=== PATIENT | male | born 1955 | race Caucasian/White ===

== ENCOUNTER → 2018-01-06 11:14 | Outpatient (CLI) | payer OTHER, SELFPAY ==
[2018-01-06 11:49] LABS: Absolute Lymphocyte Count 1.33 X10^3/ul (0.83-4.51); Absolute Neutrophil Count 4.9 X10^3/uL (2.0-7.7); Basophil# 0.02 X10^3/uL; Basophil% 0.3 % (0-1); Eosinophil# 0.04 X10^3/uL; Eosinophils% 0.6 % (0-5); Lymphocyte # 1.33 X10^3/ul (4.0); Lymphocyte % 19.9 % (19-41); Mean Corp Hgb Conc 34.7 g/gl (32-36); Mean Corpuscular Volume 86.4 fL (80-94); Mean Platelet Vol. 9.5 fl (6.2-12.0); Monocyte# 0.39 X10^3/uL; Monocyte% 5.8 % (0-10); Neutrophil # 4.87 X10^3/uL (2.7-7.7); Neutrophil % 73.1 % (47-70); Platelet Count 254 K/mm3 (150-450); RBC Distribution Width CV 13.3 % (11.6-14.6); RBC Distribution Width SD 42.1 fl (35.1-43.9); Red Blood Count 5.67 M/mm3 (4.6-6.2); White Blood Count 6.7 K/mm3 (4.4-11.0)
[2018-01-06 11:52] LABS: POSITIVE COUNT NO; POSITIVE DIFFERENTIAL NO; POSITIVE MORPHOLOGY NO
[2018-01-06 12:02] LABS: Erythrocyte Sedimentation Rate 13 mm/hr (0-20)
[2018-01-06 12:04] LABS: D-Dimer Quantitative (DVT/PE) < 0.27 FEU/ug/m (0.27-0.49)
[2018-01-06 12:59] LABS: Anion Gap 7 (5-15); BUN 21 mg/dL (7-18); BUN/Creat Ratio 23.9 RATIO (10-20); CRP, High Sensitivity Cardiac 4.31 mg/L; Chloride 104 mmol/L (98-107); Creatinine, Serum 0.88 mg/dL (0.70-1.30); EST Glomerular Filtration Rate 94 mL/min (>60); Est Glom Filt Rate - Afr Amer 114 mL/min (>60); Glucose 95 mg/dL (74-106); Potassium 4.1 mmol/L (3.5-5.1); Sodium Level 136 mmol/L (136-145); Uric Acid 5.3 mg/dL (3.5-7.2)
== END ==
PROVIDERS: Family Provider Family Medicine Geriatric Medicine; PCP Family Medicine Geriatric Medicine; Visit Provider Family Medicine Geriatric Medicine
DX: M10.9 Gout, unspecified (principal); R07.9 Chest pain, unspecified; R60.9 Edema, unspecified
CPT/HCPCS: 36415; 80048; 84550; 85025; 85379; 85652; 86141

== ENCOUNTER → 2018-03-29 14:15 | Outpatient (CLI) | payer OTHER, SELFPAY ==
--- NOTE | 2018-03-29 15:10 | NEURO ---
NCS and/or EMG Patient Report Ordering Doctor: Phi Garcia Chi DATE OF SERVICE: 03/29/18 Elvin Eubanks is a 62-year-old male who presents with chief complaint of bilateral shoulder pain which she reports radiates down into his hands. Electrodiagnostic findings: Median motor nerve demonstrates normal distal latency amplitude and conduction velocity bilaterally. Normal ulnar motor response bilaterally. Normal ulnar and median F waves. Sensory responses are within normal limits. Needle EMG testing shows no evidence of denervation in any muscles tested. Electrodiagnostic impression: This is a normal electrodiagnostic study of the upper limbs. There is no electrodiagnostic evidence for peripheral neuropathy or cervical radiculopathy.
== END ==
PROVIDERS: Family Provider Family Medicine Geriatric Medicine; PCP Family Medicine Geriatric Medicine; Visit Provider Family Medicine Geriatric Medicine
DX: R20.2 Paresthesia of skin (principal)
CPT/HCPCS: 95886; 95912

== ENCOUNTER → 2018-10-31 16:07 | Outpatient (CLI) | payer OTHER, SELFPAY ==
[2018-10-31 17:23] LABS: Absolute Lymphocyte Count 1.37 X10^3/ul (0.83-4.51); Absolute Neutrophil Count 3.7 X10^3/uL (2.0-7.7); Basophil# 0.03 X10^3/uL; Basophil% 0.5 % (0-1); Eosinophil# 0.05 X10^3/uL; Eosinophils% 0.9 % (0-5); Hematocrit 48.1 % (40-54); Hemoglobin 15.9 g/dl (13.0-16.5); Lymphocyte # 1.37 X10^3/ul (4.0); Lymphocyte % 24.7 % (19-41); Mean Corp Hgb Conc 33.1 g/gl (32-36); Mean Corpuscular Hgb 29.8 pg (27.0-32.0); Mean Corpuscular Volume 90.2 fL (80-94); Mean Platelet Vol. 10.3 fl (6.2-12.0); Monocyte# 0.34 X10^3/uL; Monocyte% 6.1 % (0-10); Neutrophil # 3.74 X10^3/uL (2.7-7.7); Neutrophil % 67.6 % (47-70); Platelet Count 236 K/mm3 (150-450); RBC Distribution Width CV 13.7 % (11.6-14.6); RBC Distribution Width SD 44.8 fl (35.1-43.9); Red Blood Count 5.33 M/mm3 (4.6-6.2); White Blood Count 5.5 K/mm3 (4.4-11.0)
[2018-10-31 17:31] LABS: POSITIVE COUNT NO; POSITIVE DIFFERENTIAL NO; POSITIVE MORPHOLOGY NO
[2018-10-31 17:59] LABS: ALB/GLOB Ratio 1.3 RATIO (0.9-2.4); AST(SGOT) 18 U/L (15-37); Alanine Aminotransfer ALT/SGPT 31 U/L (16-61); Alkaline Phosphatase 47 U/L (45-117); Anion Gap 10 (5-15); BUN 16 mg/dL (7-18); BUN/Creat Ratio 17.5 RATIO (10-20); Calcium,Total 8.7 mg/dL (8.5-10.1); Chloride 105 mmol/L (98-107); Creatinine, Serum 0.91 mg/dL (0.70-1.30); EST Glomerular Filtration Rate 90 mL/min (>60); Est Glom Filt Rate - Afr Amer 109 mL/min (>60); Globulin 3.1 g/dL (2.2-4.2); Glucose 84 mg/dL (74-106); PSA,Total- Diagnostic 4.57 ng/mL (0.0-4.0); Potassium 3.9 mmol/L (3.5-5.1); Protein, Total 7.1 g/dL (6.4-8.2); Sodium Level 140 mmol/L (136-145); Thyroid Stim Hormone (TSH) 0.41 uIU/mL (0.358-3.74)
--- OUTSIDE RECORDS SUMMARY | 2019-01-02 22:10 | XMS RPT_ITS ---
:1955 Author Organization [facility] Care Team Providers Name Role Phone Jose, Phi Chi Attending Unavailable Jose, Phi Chi Primary Care Unavailable Jose, Phi Chi Attending Unavailable Jose, Phi Chi Primary Care Unavailable Jose, Phi Chi Attending Unavailable Jose, Phi Chi Referring Unavailable Jose, Phi Chi Primary Care Unavailable Jose, Phi Chi Attending Unavailable Jose, Phi Chi Primary Care Unavailable PROBLEMS PROBLEMS DATE TYPE CONDITION / CODE ATTENDING STATUS SOURCE 03/29/2018 Unknown R20.9 - Jose, Phi Chi Active [facility] Unspecified Community disturbances of Hospital skin sensation / Repository R20.9(ICD-10) 01/06/2018 Unknown M10.9 - Gout, Jose, Phi Chi Active [place] unspecified / Community M10.9(ICD-10) Hospital Repository 01/06/2018 Unknown R07.9 - Chest Jose, Phi Chi Active [facility] pain, unspecified Community / R07.9(ICD-10) Hospital Repository 01/06/2018 Unknown R60.9 - Edema, Jose, Phi Chi Active [place] unspecified / Community R60.9(ICD-10) Hospital Repository PROCEDURES PROCEDURES No Procedure Records FoundRESULTS RESULTS CBC W/DIFF, AUTOMATED Collected: 10/31/2018 Status: F Source: [place] 4:08 PM [facility] [place] Order Comment: DR GARCIA ORDERED CBCD CMP TSH DR WHARTON ORDERED PSAD TYPE CODE TESTS RESULT OUT OF RANGE REFERENCE UNITS LAB L100.1000 4.4-11.0 K/mm3 Normal WBC 5.5 LAB L100.1200 4.6-6.2 M/mm3 Normal RBC 5.33 LAB L100.1300 13.0-16.5 g/dl Normal HGB 15.9 LAB L100.1400 40-54 % Normal HCT 48.1 LAB L100.1500 80-94 fL Normal MCV 90.2 LAB L100.1600 27.0-32.0 pg Normal MCH 29.8 LAB L100.1700 32-36 g/gl Normal MCHC 33.1 LAB L100.1810 11.6-14.6 % Normal RDW CV 13.7 LAB L100.1820 35.1-43.9 fl High RDW SD 44.8 LAB L100.1900 150-450 K/mm3 Normal PLT 236 LAB L100.2000 6.2-12.0 fl Normal MPV 10.3 LAB L100.2100 47-70 % Normal NEUT% 67.6 LAB L100.2200 19-41 % Normal LY% 24.7 LAB L100.2300 0-10 % Normal MONO% 6.1 LAB L100.2400 0-5 % Normal EO% 0.9 LAB L100.2500 0-1 % Normal BASO% 0.5 LAB L100.2550 0.0-0.9 % Normal IM GRAN % 0.200 Result Comment: IG% - Immature Granulocytes (promyelocytes, myelocytes and metamyelocytes) > 1% indicates that a LEFT SHIFT is Present. LAB L100.2620 2.0-7.7 X10 3/uL Normal Absolute Neut 3.7 LAB L100.2720 0.83-4.51 X10 3/ul Normal Absolute Lymph 1.37 Performed By: #### L100.0100 #### [facility] [address] [place], [address] COMPREHENSIVE METABOLIC Collected: 10/31/2018 Status: F Source: [facility] 4:08 PM [facility] [place] Order Comment: DR GARCIA ORDERED CBCD CMP TSH DR WHARTON ORDERED PSAD TYPE CODE TESTS RESULT OUT OF RANGE REFERENCE UNITS LAB L501.0100 74-106 mg/dL Normal GLU 84 Result Comment: Please note revised GLUCOSE reference range effective 2017. LAB L501.1000 7-18 mg/dL Normal BUN 16 LAB L501.1100 0.70-1.30 mg/dL Normal CREAT,SERUM 0.91 Result Comment: The validity of the calculated GFR AND GFRAA in patients over 70 years has not been determined. Clinical correlation is essential. LAB L501.1110 >60 mL/min Normal EST GFR 90 Result Comment: Non- GFR Calc LAB L501.1115 >60 mL/min Normal EST GFR - AA 109 Result Comment: GFR Calc LAB L501.1300 10-20 RATIO Normal BUN/CRE 17.5 LAB L501.1500 6.4-8.2 g/dL T Normal PROT 7.1 LAB L501.1800 3.2-5.0 g/dL Normal ALB 4.0 LAB L501.1950 2.2-4.2 g/dL Normal GLOB 3.1 LAB L501.2000 0.9-2.4 RATIO Normal A/G 1.3 LAB L501.2200 8.5-10.1 mg/dL CA Normal 8.7 LAB L501.4100 15-37 U/L Normal AST 18 LAB L501.4305 45-117 U/L Normal ALK P 47 LAB L501.4405 16-61 U/L Normal ALT 31 LAB L501.4600 0.20-1.00 mg/dL T Normal BILI 0.60 LAB L501.5300 136-145 mmol/L NA Normal 140 LAB L501.5600 3.5-5.1 mmol/L K Normal 3.9 LAB L501.5900 98-107 mmol/L CL Normal 105 LAB L501.6100 21.0-32.0 mmol/L Normal CO2 25.0 LAB L501.6200 5-15 Normal GAP 10 Performed By: #### L500.4050, L501.9520, L501.9940 #### [facility] [address] [place], [place], [id number] THYROID STIM HORMONE Collected: 10/31/2018 Status: F Source: [place] ([facility]) 4:08 PM [facility] [place] Order Comment: DR GARCIA ORDERED CBCD CMP TSH DR WHARTON ORDERED PSAD TYPE CODE TESTS RESULT OUT OF RANGE REFERENCE UNITS LAB L501.9520 0.358-3.74 uIU/mL Normal TSH 0.41 Performed By: #### L500.4050, L501.9520, L501.9940 #### [facility] [address] [place], [address] PSA,TOTAL- DIAGNOSTIC Collected: 10/31/2018 Status: F Source: [place] 4:08 PM [facility] [place] Order Comment: DR GARCIA ORDERED CBCD CMP TSH DR WHARTON ORDERED PSAD TYPE CODE TESTS RESULT OUT OF REFERENCE UNITS RANGE LAB L501.9940 0.0-4.0 ng/mL PSA, High DIAGNOSTIC 4.57 Result Comment: This test was performed using the TPSA assay method for the Cognia chemistry system. Values obtained with different assay methods cannot be used interchangably. When changing PSA assays in the course of monitoring a patient, additional sequential testing should be carried out to confirm baseline values. Performed By: #### L500.4050, L501.9520, L501.9940 #### [facility] [address] [place], [address] NCS AND/OR EMG Observed: 03/29/2018 Status: F Source: [place] PATIENT 3:14 PM [facility] [place] [facility] [address] [place] [address] MR#: [id number] Acct: [id number] Name: ESPERANZA EUBANKS Rep #: [id number] : 1955 62 From: Silviano Acosta MD Referring Dr: Jose CARLSON,Phi Thacker Status: REG CLI Ordering Dr: Date: Location: [facility] [place] Sex: M C NCS and/or EMG Patient Report Ordering Doctor: Phi Garcia Chi DATE OF SERVICE: 03/29/18 Esperanza Eubanks is a 62-year-old male who presents with chief complaint of bilateral shoulder pain which she reports radiates down into his hands. Electrodiagnostic findings: Median motor nerve demonstrates normal distal latency amplitude and conduction velocity bilaterally. Normal ulnar motor response bilaterally. Normal ulnar and median F waves. Sensory responses are within normal limits. Needle EMG testing shows no evidence of denervation in any muscles tested. Electrodiagnostic impression: This is a normal electrodiagnostic study of the upper limbs. There is no electrodiagnostic evidence for peripheral neuropathy or cervical radiculopathy. 03/29/181513 <Electronically signed by Silviano Acosta MD> Date Silviano Acosta MD CC: Silviano Acosta; Phi Garcia MD Date Dictated: 03/29/181509 Date Transcribed: 03/29/181509 Culinary Chef: RENNY Signed CBC W/DIFF, AUTOMATED Collected: 01/06/2018 Status: F Source: [place] 11:16 AM [facility] [place] TYPE CODE TESTS RESULT OUT OF RANGE REFERENCE UNITS LAB L100.1000 4.4-11.0 K/mm3 Normal WBC 6.7 LAB L100.1200 4.6-6.2 M/mm3 Normal RBC 5.67 LAB L100.1300 13.0-16.5 g/dl High HGB 17.0 LAB L100.1400 40-54 % Normal HCT 49.0 LAB L100.1500 80-94 fL Normal MCV 86.4 LAB L100.1600 27.0-32.0 pg Normal MCH 30.0 LAB L100.1700 32-36 g/gl Normal MCHC 34.7 LAB L100.1810 11.6-14.6 % Normal RDW CV 13.3 LAB L100.1820 35.1-43.9 fl Normal RDW SD 42.1 LAB L100.1900 150-450 K/mm3 Normal PLT 254 LAB L100.2000 6.2-12.0 fl Normal MPV 9.5 LAB L100.2100 47-70 % High NEUT% 73.1 LAB L100.2200 19-41 % Normal LY% 19.9 LAB L100.2300 0-10 % Normal MONO% 5.8 LAB L100.2400 0-5 % Normal EO% 0.6 LAB L100.2500 0-1 % Normal BASO% 0.3 LAB L100.2550 0.0-0.9 % Normal IM GRAN % 0.300 Result Comment: IG% - Immature Granulocytes (promyelocytes, myelocytes and metamyelocytes) > 1% indicates that a LEFT SHIFT is Present. LAB L100.2620 2.0-7.7 X10 3/uL Normal Absolute Neut 4.9 LAB L100.2720 0.83-4.51 X10 3/ul Normal Absolute Lymph 1.33 Performed By: #### L100.0100, L101.9900 #### [facility] [address] [facility] [address] ERYTHROCYTE SED RATE Collected: 01/06/2018 Status: F Source: [place] 11:16 AM [facility] [place] TYPE CODE TESTS RESULT OUT OF RANGE REFERENCE UNITS LAB L102.0000 0-20 mm/hr Normal SED RATE 13 Performed By: #### L100.0100, L101.9900 #### [facility] [address] [facility]. [facility] [id number] D-DIMER QUANTITATIVE Collected: 01/06/2018 Status: F Source: [place] (DVT/PE) 11:16 AM [facility] [place] [facility] TYPE CODE TESTS RESULT OUT OF RANGE REFERENCE UNITS LAB L300.8000 0.27-0.49 FEU/ug/m Low D-DIMER < 0.27 QUANT Result Comment: NORMAL D-Dimer level (<0.50) indicates no DVT or PE. NORMAL D-Dimer level (<0.50) indicates no DVT or PE. Performed By: #### L300.8000 #### [facility] [address] [facility]. [facility] [address] BASIC METABOLIC Collected: 01/06/2018 Status: F Source: [facility] PROFILE (BMP) 11:16 AM [facility] [place] TYPE CODE TESTS RESULT OUT OF RANGE REFERENCE UNITS LAB L501.0100 74-106 mg/dL Normal GLU 95 Result Comment: Please note revised GLUCOSE reference range effective 2017. LAB L501.1000 7-18 mg/dL High BUN 21 LAB L501.1100 0.70-1.30 mg/dL Normal CREAT,SERUM 0.88 Result Comment: The validity of the calculated GFR AND GFRAA in patients over 70 years has not been determined. Clinical correlation is essential. LAB L501.1110 >60 mL/min Normal EST GFR 94 Result Comment: Non- GFR Calc LAB L501.1115 >60 mL/min Normal EST GFR - AA 114 Result Comment: GFR Calc LAB L501.1300 10-20 RATIO High BUN/CRE 23.9 LAB L501.2200 8.5-10.1 mg/dL CA Normal 9.0 LAB L501.5300 136-145 mmol/L NA Normal 136 LAB L501.5600 3.5-5.1 mmol/L K Normal 4.1 LAB L501.5900 98-107 mmol/L CL Normal 104 LAB L501.6100 21.0-32.0 mmol/L Normal CO2 25.0 LAB L501.6200 5-15 Normal GAP 7 Performed By: #### L500.2500, L501.1400, L501.6750 #### [facility] [address] [facility]. [place], [place], [address] URIC ACID Collected: 01/06/2018 Status: F Source: [place] 11:16 AM [facility] [place] TYPE CODE TESTS RESULT OUT OF RANGE REFERENCE UNITS LAB L501.1400 3.5-7.2 mg/dL Normal URIC 5.3 Result Comment: The drugs N-Acetylcysteine and Metamizole may falsely depress this assay. Performed By: #### L500.2500, L501.1400, L501.6750 #### [facility] [address] [place], [place], [address] CRP, HIGH SENSITIVITY Collected: 01/06/2018 Status: F Source: [facility] 11:16 AM [facility] [place] TYPE CODE TESTS RESULT OUT OF RANGE REFERENCE UNITS LAB L501.6750 mg/L High CRP HIGH 4.31 SENS Result Comment: Low Relative Risk of CVD <1.0 mg/L Average Relative Risk of CVD 1.0 - 3.0 mg/L High Relative Risk of CVD >3.0 mg/L Performed By: #### L500.2500, L501.1400, L501.6750 #### [facility] [address] [place], [address] ALLERGIES ALLERGIES No Allergies Records FoundENCOUNTERS ENCOUNTERS ADMIT/DISCHARGE ACCOUNT ADMITTING ENCOUNTER LOCATION SOURCE NUMBER CLASS 10/31/2018 [id number] Ambulatory [facility] 0 [facility] ing:POLAB3 Repository 04/26/2018 [id number] Ambulatory [place] Inderjit 3 [facility] ing:LAB.FUTUR Repository E 03/29/2018 [id number] Ambulatory [place]der[facility]it [place] 8 [facility] ing:PSN Repository 01/06/2018 [id number] Ambulatory [place] Inderjit 2 [facility] ing:POLAB3 Repository PAYERS PAYERS ENCOUNTER GUARANTOR PAYER SUBSCRIBER SOURCE 10/31/2018 Esperanza E Eubanks Primary ESPERANZA E [place] [id number] [place] Insurance:AULTCAREPol YODERDOB: [place], [place] icy Number: [id number] [address]Ann: 330 [id number] Repository [phone] () Date:[place]883[place] [id number]: 10/31/2018 Secondary NOT GIVENUNK [place] Insurance:SELF PAY [facility] Number: Effective Repository Date:2018-10-31 04/26/2018 Esperanza E Eubanks Primary ESPERANZA E [place] [id number] [place] Insurance:AULTCAREPol YODERDOB: [place], [place] icy Number: [id number] [address]Mij: 330 [id number] Repository [phone] () Date:4679-19-46[address] [address]UJ: 04/26/2018 Secondary NOT GIVENUNK [place] Insurance:SELF PAY [facility] Number: Effective Repository Date:2018-04-26 03/29/2018 Esperanza E Eubanks Primary ESPERANZA E [place] [id number] [place] Insurance:AULTCAREPol YODERDOB: [place], [place] icy Number: [id number] [address]Ewu: 330 [id number] Repository [phone] () Date:0646-01-64OM [address] [place] [id number]: 03/29/2018 Secondary NOT GIVENUNK [place] Insurance:SELF PAY [facility] Number: Effective Repository Date:2018-01-06 01/06/2018 Esperanza Eubanks Primary ESPERANZA Mg [id number] [place] Insurance:AULTCAREScot EUBANKSDOB: [place], [place] ic Number: [id number] [address]Nju: [phone] [id number] Repository [phone] () Date:0311-28-60XD [address], [place] [address]YL: 01/06/2018 Secondary NOT GIVENUNK [place] Insurance:SELF PAY [facility] Number: Effective Repository Date:2018-01-06
== END ==
PROVIDERS: Family Provider Family Medicine Geriatric Medicine; PCP Family Medicine Geriatric Medicine; Visit Provider Family Medicine Geriatric Medicine
DX: I10 Essential (primary) hypertension (principal); Z12.5 Encounter for screening for malignant neoplasm of prostate; R97.20 Elevated prostate specific antigen [PSA]
CPT/HCPCS: 36415; 80053; 84153; 84443; 85025

== ENCOUNTER → 2019-02-09 | Outpatient (CLI) | payer OTHER, SELFPAY ==
[2019-02-09 10:07] VITALS: BMI 29.4
--- NOTE | 2019-02-09 10:13 | RAD_ITS ---
STUDY: X-RAY - RIGHT SHOULDER REASON FOR EXAM: Shoulder pain, fall yesterday. TECHNIQUE: 4 view(s) of the shoulder. COMPARISON: None. FINDINGS: Normal glenohumeral articulation. There is acromioclavicular arthrosis. Normal acromion. Normal humeral head and visualized proximal humerus. There is a calcification adjacent to the lesser tuberosity on the axillary and internal AP rotation views consistent with subscapularis calcific tendinitis. Normal visualized pulmonary apex. 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 Electronically Signed: Reinaldo Calabrese MD at 11:23 EDT Tel , Service support ,
== END | disposition home or self-care (01) ==
LOC: HPRAD 10:12
PROVIDERS: Family Provider Family Medicine Geriatric Medicine; PCP Family Medicine Geriatric Medicine; Referring Provider Physician Assistant Surgical; Visit Provider Physician Assistant Surgical
DX: S46.911A Strain of unspecified muscle, fascia and tendon at shoulder and upper arm level, right arm, initial encounter (principal)
CPT/HCPCS: 73030

== ENCOUNTER → 2019-05-02 | Outpatient (CLI) | payer OTHER, SELFPAY ==
[2019-02-09 10:07] VITALS: BMI 29.4
[2019-05-02 17:52] LABS: Absolute Neutrophil Count 4.3 X10^3/uL (2.0-7.7); Basophil# 0.03 X10^3/uL; Basophil% 0.5 % (0-1); Eosinophil# 0.08 X10^3/uL; Eosinophils% 1.2 % (0-5); Hematocrit 45.3 % (40-54); Hemoglobin 15.2 g/dL (13.0-16.5); Lymphocyte % 27.4 % (19-41); Mean Corp Hgb Conc 33.6 g/dL (32-36); Mean Corpuscular Hgb 29.7 pg (27.0-32.0); Mean Corpuscular Volume 88.5 fL (80-94); Mean Platelet Vol. 9.6 fl (6.2-12.0); Monocyte# 0.38 X10^3/uL; Monocyte% 5.8 % (0-10); NRBC Flagged by Analyzer 0 % (0-5); Neutrophil # 4.26 X10^3/uL (2.7-7.7); Neutrophil % 64.8 % (47-70); Platelet Count 247 K/mm3 (150-450); RBC Distribution Width CV 12.7 % (11.6-14.6); RBC Distribution Width SD 41.5 fl (35.1-43.9); Red Blood Count 5.12 M/mm3 (4.6-6.2); White Blood Count 6.6 K/mm3 (4.4-11.0)
[2019-05-02 18:21] LABS: ALB/GLOB Ratio 1.3 RATIO (0.9-2.4); AST(SGOT) 12 U/L (15-37); Alanine Aminotransfer ALT/SGPT 26 U/L (16-61); Albumin, Serum 3.9 g/dL (3.2-5.0); Alkaline Phosphatase 46 U/L (45-117); Anion Gap 9 (5-15); BUN 18 mg/dL (7-18); BUN/Creat Ratio 22.8 RATIO (10-20); Calcium,Total 8.8 mg/dL (8.5-10.1); Chloride 104 mmol/L (98-107); Creatinine, Serum 0.79 mg/dL (0.70-1.30); EST Glomerular Filtration Rate 106 mL/min (>60); Est Glom Filt Rate - Afr Amer 128 mL/min (>60); Globulin 2.9 g/dL (2.2-4.2); Glucose 76 mg/dL (74-106); Potassium 3.8 mmol/L (3.5-5.1); Protein, Total 6.8 g/dL (6.4-8.2); Sodium Level 139 mmol/L (136-145); Thyroid Stim Hormone (TSH) 0.66 uIU/mL (0.358-3.74)
== END | disposition home or self-care (01) ==
LOC: POLAB3 13:51
PROVIDERS: Family Provider Family Medicine Geriatric Medicine; PCP Family Medicine Geriatric Medicine; Visit Provider Family Medicine Geriatric Medicine
DX: I10 Essential (primary) hypertension (principal); Z12.5 Encounter for screening for malignant neoplasm of prostate
CPT/HCPCS: 36415; 80053; 84443; 85025

== ENCOUNTER 2019-05-16 10:06 | Emergency (ER) | payer OTHER, SELFPAY ==
[2019-02-09 10:07] VITALS: BMI 29.4
[2019-05-16 10:07] VITALS: BP 162/88; PULSE 120; RESP 20; TEMP 36.6; O2SAT 96; BMI 32.9
--- NOTE | 2019-05-16 10:34 | ED.VISSUMM ---
- ER Visit Summary Date of Service: 05/16/19 Chief Complaint: Unable to urinate History of Present Illness: The patient is a 63 M history of benign prostate hypertrophy and hypertension. Patient states he only trickled urine this morning and is unable to urinate at all. Prior to that he denies dysuria or hematuria. No fever. He is complaining of suprapubic discomfort. Denies any prior history of urinary retention. No prior bladder or prostate surgery. He does see a urologist and is on Flomax. Physical Examination: Older male complaining of suprapubic discomfort. Vital signs stable afebrile. HEENT exam unremarkable. Neck nontender. Lungs clear to auscultation. Heart tachycardic rate about 110 no murmur. Abdomen distended bladder suprapubically. Mildly tender. Normal bowel sounds no peritoneal signs. Moving all 4 extremities. Neurovascular intact. Nontender no edema. Neurologically is awake alert. Test Results: Urinalysis shows small amount of blood. Otherwise unremarkable. No infection. Emergency Department Course and Treatment: Nurse will place a Castorena catheter. Patient exam and history is consistent with urinary retention. After nurse placed Castorena catheter the patient had over a liter out primarily clear urine. No gross blood. Treatment Plan: Repeat exam patient is feeling much better after his bladder was decompressed. He will be discharged home with a Castorena catheter. He has had some bladder spasms and was placed on Pyridium. He will follow-up with his urologist. Disposition: Discharge Impression: Acute urinary retention History of BPH This note was generated with [employer] dictation software. It may contain incorrect words, spelling, and punctuation that were not noted in review of the chart prior to signing ED Disposition - Plan for ED Patient: Referrals: Phi Garcia Chi, MD [Primary Care Provider] -
[2019-05-16 11:09] LABS: Bacteria 0 SEEN /hpf (None Seen); Mucous, Urine 0 SEEN /hpf (<or=2+); Squamous Epithelial Cells - UA 0 SEEN /hpf (0-5)
[2019-05-16 11:13] LABS: Color, Urine Yellow (Yellow); Glucose, Dipstick Normal (Normal); Ketone-Dipstick Negative (Negative); Leukocyte Esterase-Dipstick Negative /ul (Negative); Nitrite-Dipstick Negative (Negative); Occult Blood-Urine 50 /ul (Negative); Protein-Dipstick Negative (Negative); Specific Gravity, Urine 1.015 (1.002-1.030); Urine Bilirubin Dipstick Negative (Negative); Urine Clarity Clear (Clear); Urine Urobilinogen Normal (Normal)
[2019-05-16 11:21] LABS: Red Blood Cells-Urine 0-5 SEEN /hpf (0-5); White Blood Cells 0-5 SEEN /hpf (0-5)
--- NOTE | 2019-05-16 14:04 | ED.DEP ---
ED Disposition - Plan for ED Patient: Disposition: Home or Assisted Living Instructions: URINARY RETENTION, Male Prescriptions: Phenazopyridine [Pyridium] 200 mg PO TID #10 tab Prescription Printed Referrals: Gibran Holliday MD [STAFF PHYSICIAN] - As soon as possible Additional Instructions: Call and follow-up with Dr. Holliday in the next several days. Remove your catheter. Plenty of fluids. Follow-up in the ER if your catheter is not draining urine. Pyridium as needed for bladder spasms.
[2019-05-16 14:58] VITALS: PULSE 82; RESP 17
== END 2019-05-16 14:59 | disposition home or self-care (01) ==
PROVIDERS: Emergency Provider Emergency Medicine; Family Provider Family Medicine Geriatric Medicine; PCP Family Medicine Geriatric Medicine; Referring Provider Urology
DX: N40.1 Benign prostatic hyperplasia with lower urinary tract symptoms (principal); R33.8 Other retention of urine; I10 Essential (primary) hypertension; Z79.899 Other long term (current) drug therapy
CPT/HCPCS: 51702; 81001; 99283

== ENCOUNTER → 2019-05-18 | Outpatient (CLI) | payer OTHER, SELFPAY ==
[2019-05-16 10:07] VITALS: BMI 32.9
--- NOTE | 2019-05-18 11:09 | RAD_ITS ---
STUDY: X-RAY - ABDOMEN/PELVIS REASON FOR EXAM: Male, 63 years old. Fecal impaction and inability to pass urine. TECHNIQUE: AP supine and upright views of the abdomen and pelvis. COMPARISON: None. FINDINGS: Calcified granuloma at the left lung base. Otherwise the lungs are clear. Nondistended stomach. Nondistended small bowel. Average amount of visible stool in a nondistended colon. There is no substantial stool collection. Negative for organomegaly. Minimal vascular calcifications. One phlebolith of the left pelvis. The urinary bladder does not appear to be distended or substantially elevated from the pelvis floor. Mild degenerative changes of the lumbar spine RAD/Abd Inc Decub and/or Erect IMPRESSION: Essentially normal exam of the abdomen and pelvis. Negative for a substantial stool burden. Negative for a distended urinary bladder or substantial elevation of the bladder base. Electronically Signed: Pamela Daniels MD at 20:34 EDT , Service support ,
== END | disposition home or self-care (01) ==
LOC: RAD 11:07
PROVIDERS: Family Provider Family Medicine Geriatric Medicine; PCP Family Medicine Geriatric Medicine; Referring Provider Family Medicine Geriatric Medicine; Visit Provider Family Medicine Geriatric Medicine
DX: K56.41 Fecal impaction (principal); N39.0 Urinary tract infection, site not specified
CPT/HCPCS: 74019; 87086

== ENCOUNTER → 2019-08-13 16:44 | Outpatient (CLI) | payer OTHER, SELFPAY ==
[2019-08-13 17:44] LABS: Absolute Lymphocyte Count 1.76 X10^3/uL (0.83-4.51); Absolute Neutrophil Count 5.3 X10^3/uL (2.0-7.7); Basophil# 0.06 X10^3/uL; Basophil% 0.8 % (0-1); Eosinophil# 0.12 X10^3/uL; Eosinophils% 1.5 % (0-5); Hematocrit 48.2 % (40-54); Hemoglobin 15.8 g/dL (13.0-16.5); Lymphocyte # 1.76 X10^3/ul (4.0); Lymphocyte % 22.6 % (19-41); Mean Corp Hgb Conc 32.8 g/dL (32-36); Mean Corpuscular Hgb 29.5 pg (27.0-32.0); Mean Corpuscular Volume 90.1 fL (80-94); Mean Platelet Vol. 9.4 fl (6.2-12.0); Monocyte# 0.56 X10^3/uL; Monocyte% 7.2 % (0-10); NRBC Flagged by Analyzer 0 % (0-5); Neutrophil # 5.25 X10^3/uL (2.7-7.7); Neutrophil % 67.4 % (47-70); Platelet Count 267 K/mm3 (150-450); RBC Distribution Width CV 12.8 % (11.6-14.6); RBC Distribution Width SD 42.4 fl (35.1-43.9); Red Blood Count 5.35 M/mm3 (4.6-6.2); White Blood Count 7.8 K/mm3 (4.4-11.0)
[2019-08-13 18:12] LABS: Anion Gap 6 (5-15); BUN 26 mg/dL (7-18); Calcium,Total 9.1 mg/dL (8.5-10.1); Chloride 109 mmol/L (98-107); Creatinine, Serum 0.87 mg/dL (0.70-1.30); EST Glomerular Filtration Rate 95 mL/min (>60); Est Glom Filt Rate - Afr Amer 115 mL/min (>60); Glucose 89 mg/dL (74-106); Potassium 3.9 mmol/L (3.5-5.1); Sodium Level 141 mmol/L (136-145)
== END ==
PROVIDERS: Family Provider Family Medicine Geriatric Medicine; PCP Family Medicine Geriatric Medicine; Visit Provider Family Medicine Geriatric Medicine
DX: Z86.73 Personal history of transient ischemic attack (TIA), and cerebral infarction without residual deficits (principal)
CPT/HCPCS: 36415; 80048; 85025

== ENCOUNTER → 2019-08-24 13:08 | Outpatient (CLI) | payer OTHER, SELFPAY ==
--- NOTE | 2019-08-24 13:45 | MRI_ITS ---
STUDY: MRI BRAIN WITH AND WITHOUT CONTRAST REASON FOR EXAM: Male, 63 years old. TIA TECHNIQUE: Standardized multiplanar fat and water weighted pulse sequences were obtained. IV Dotarem 18 was administered for the contrast portion of the examination. COMPARISON: None. FINDINGS: Normal size of the ventricles and extra-axial spaces for the patient's age. Normal white matter tracts of the supratentorial brain. Normal bilateral basal ganglia. Normal thalami. There is no extra-axial fluid accumulation. Normal flow voids within the major intracranial circulation suggesting patency by spin echo criteria. Normal venous enhancement. There is a cortical enhancing lesion in the left occipital lobe inferior to the calcarine sulcus consistent with subacute ischemic lesion. Normal sella turcica, pituitary gland, infundibular stalk, optic chiasm and hypothalamus. Normal tectal plate and pineal gland. Normal midbrain, talib and medulla. Normal cerebellum. Normal basal cisterns. Normal bilateral temporal bones. Normal bilateral internal auditory canals. No demonstrated orbital abnormality, within the constraints of a routine brain study. Normal visualized paranasal sinuses. Normal calvarium and skull base. Normal visualized soft tissue structures. Normal visualized upper cervical spine. MRI/Brain W/WO Contrast IMPRESSION: There is a small cortical enhancing lesion in the left occipital lobe inferior to the calcarine sulcus consistent with subacute ischemic lesion in the left posterior cerebral artery. Electronically Signed: Swapnil Restrepo, at 3:24 EST Tel , Service support ,
--- NOTE | 2019-08-24 14:33 | CT_ITS ---
STUDY: CTA HEAD AND NECK WITH CONTRAST REASON FOR EXAM: Male, 63 years old. Stroke, episode of right sided weakness/numbness 2 weeks ago, right peripheral vision blurred since. Denies head pain. RADIATION DOSAGE (If Supplied By Facility): CTDIvol = ( 29.93 ) mGy, DLP = ( 1529.79 ) mGycm TECHNIQUE: CT angiography was performed with a multi-detector CT scanner. Data acquisition was obtained from the skull base through the vertex following intravenous administration of IV Isovue 370 100mL. MIP images were reconstructed from the axial data set. Post-processing of the angiographic images was performed, with multiplanar reformation and 3D reconstruction. Individualized dose optimization techniques were used for this CT. COMPARISON: No relevant priors. FINDINGS: Normal bilateral petrous carotid arteries. Normal right cavernous carotid artery with a normal supraclinoid bifurcation. Normal left cavernous carotid artery with a normal supraclinoid bifurcation. Normal right A1 segments of the anterior cerebral artery. Normal left A1 segments of the anterior cerebral artery. Normal intact anterior communicating artery (ACOM). Normal bilateral A2 segments of the anterior cerebral arteries. Normal right M1 and M2 segments of the middle cerebral arteries, with a normal M1 bifurcation. Normal left M1 and M2 segments of the middle cerebral arteries, with a normal M1 bifurcation. 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 There is non-visualization of the left posterior communicating artery (PCOM). Normal bilateral vertebral arteries. Normal basilar artery with a normal basilar bifurcation. The visualized bilateral superior cerebellar (SCA) arteries are normal. Normal bilateral P1, P2 and visualized P3 segments of the posterior cerebral arteries. There is no demonstrated aneurysm of the [place]. There is no demonstrated abnormality of the visualized brain. AORTIC ARCH: Normal visualized aortic arch. Normal origins of the brachiocephalic, left common carotid, and left subclavian arteries. RIGHT CAROTID ARTERIES: Normal right common carotid artery (CCA). Normal right common carotid bulb. Normal origin of the right internal carotid (ICA) artery without a hemodynamically significant stenosis. Normal visualized cervical portion of the right internal carotid artery. Normal origin of the right external carotid artery (ECA). LEFT CAROTID ARTERIES: Normal left common carotid artery (CCA). Normal left common carotid bulb. Normal origin of the left internal carotid (ICA) artery without a hemodynamically significant stenosis. Normal visualized cervical portion of the left internal carotid artery. Normal origin of the left external carotid artery (ECA). VERTEBRAL ARTERIES: There is enhancement within the bilateral vertebral arteries with a small right vertebral artery, and a dominant left vertebral artery. CT/CTA Head AND Neck W/ Contrast IMPRESSION: Normal CTA Head and neck with contrast. Electronically Signed: Swapnil Restrepo, at 7:19 EST Tel , Service support ,
--- NOTE | 2019-08-24 14:48 | ECHOD_ITS ---
Reason For Study: HTN, TIA Procedure This was a 2D Doppler, Color Flow transthoracic echocardiogram. Exam performed in department. Left Ventricle Normal LV size. The estimated ejection fraction is 55 %. No evidence for diastolic dysfunction. No regional wall motion abnormalities noted. Right Ventricle Normal RV size. Normal systolic function. Atria Normal left atrium. Normal right atrium. No doppler evidence for ASD. Mitral Valve There is no mitral valve stenosis. Trivial mitral valve insufficiency. Tricuspid Valve There is no tricuspid stenosis. Unable to estimate RV systolic pressure due to insufficient tricuspid regurgitant envelope. No tricuspid valve insufficiency. Aortic Valve There is no aortic stenosis. Trivial aortic valve insufficiency. Pulmonic Valve There is no pulmonic valvular stenosis. No pulmonic valve insufficiency. Great Vessels Normal aortic root. Pericardium/Pleural No pericardial effusion. MMode/2D Measurements & Calculations LVIDd: 5.3 cm IVSd: 1.1 cm Ao root diam: 3.5 cm LVIDs: 3.5 cm LVPWd: 1.1 cm RVDd: 4.1 cm FS: 33.0 % LAV(MOD-bp): 60.2 ml LA A4 area: 19.3 cm2 LA dimension(2D): 3.9 cm LAV(MOD-bp) Indexed: 31.1 ml/m2 LAV(MOD-sp2): 59.5 ml LAV(MOD-sp4): 59.5 ml RA A4 area: 14.5 cm2 Time Measurements MV dec time: 0.17 sec Doppler Measurements & Calculations MV E max keron: 60.7 cm/sec Lat Peak E' Keron: 6.7 cm/sec Med Peak E' Keron: 5.7 cm/sec MV A max keron: 66.9 cm/sec E/E' lat: 9.0 E/E' med: 10.6 MV E/A: 0.91 Ao V2 max: 103.7 cm/sec LV V1 max: 84.0 cm/sec PA V2 max: 103.4 cm/sec Ao max P.3 mmHg LV V1 max P.8 mmHg Interpretation Summary The estimated ejection fraction is 55 %. No evidence for diastolic dysfunction. Trivial aortic valve insufficiency. Trivial mitral valve insufficiency. Ordering Physician: Phi Garcia Referring Physician: Phi Garcia Chi Performed By: Blessing Cook, FRANKIE, RVT
== END ==
PROVIDERS: Family Provider Family Medicine Geriatric Medicine; PCP Family Medicine Geriatric Medicine; Referring Provider Family Medicine Geriatric Medicine; Visit Provider Family Medicine Geriatric Medicine
DX: Z86.73 Personal history of transient ischemic attack (TIA), and cerebral infarction without residual deficits (principal)
CPT/HCPCS: 70496; 70498; 70553; 93306; A9575; Q9967; A4216

== ENCOUNTER → 2019-09-05 12:46 | Outpatient (CLI) | payer OTHER, SELFPAY ==
--- NOTE | 2019-09-05 12:47 | CDU_ITS ---
Reason For Study: VISION LOSS Rt. Velocities/BP Lt. Velocities/BP Prox CCA 94.3/21.3 cm/sec. Prox CCA 119.5/34.8 cm/sec. Mid CCA 89.7/20.0 cm/sec. Mid CCA 82.7/23.7 cm/sec. Dist CCA 70.8/22.6 cm/sec. Dist CCA 82.7/23.7 cm/sec. Prox ICA 36.7/11.2 cm/sec. Prox ICA 58.5/21.6 cm/sec. Mid ICA 58.5/22.6 cm/sec. Mid ICA 58.5/26.4 cm/sec. Dist ICA 54.7/20.7 cm/sec. Dist ICA 77.4/32.0 cm/sec. Rt. ICA/CCA = 58.5/89.1=0.6. Lt. ICA/CCA = 77.4/82.7=0.9. Prox ECA 86.5/17.3 cm/sec. Prox ECA 97.4/18.8 cm/sec. Rt. Vert. 33.0/7.5 cm/sec. Lt. Vert. 48.1/15.0 cm/sec. Right Extracranial There is intimal thickening but no significant atherosclerotic plaque noted in the right common carotid artery. There is homogeneous, smooth atherosclerotic plaque noted in the right internal carotid artery. There is no significant atherosclerotic plaque noted in the right external carotid artery. Antegrade flow is noted in the right vertebral artery. Left Extracranial There is intimal thickening but no significant atherosclerotic plaque noted in the left common carotid artery. There is homogeneous, smooth atherosclerotic plaque noted in the left internal carotid artery. There is no significant atherosclerotic plaque noted in the left external carotid artery. Antegrade flow is noted in the left vertebral artery. Procedure Carotid Duplex 92438. The exam was diagnostic. Exam performed in department. Interpretation Summary Mild (<50%) stenosis right extracranial internal carotid. Mild (<50%) stenosis left extracranial internal carotid. Flow within the vertebral arteries is antegrade bilaterally. Ordering Physician: Gautam Bocanegra Referring Physician: Phi Garcia Chi Performed By: Blessing Cook RDCS, RVT
== END ==
PROVIDERS: Family Provider Family Medicine Geriatric Medicine; PCP Family Medicine Geriatric Medicine; Referring Provider Ophthalmology; Visit Provider Ophthalmology
DX: H53.123 Transient visual loss, bilateral (principal)
CPT/HCPCS: 93880

== ENCOUNTER → 2019-09-28 05:58 | Outpatient (CLI) | payer OTHER, SELFPAY ==
[2019-09-26 14:55] VITALS: BMI 31.2
[2019-09-28 06:22] LABS: Absolute Lymphocyte Count 1.38 X10^3/uL (0.83-4.51); Basophil# 0.04 X10^3/uL; Basophil% 0.8 % (0-1); Eosinophil# 0.19 X10^3/uL; Eosinophils% 3.9 % (0-5); Hematocrit 48.3 % (40-54); Lymphocyte # 1.38 X10^3/ul (4.0); Lymphocyte % 28.3 % (19-41); Mean Corp Hgb Conc 33.1 g/dL (32-36); Mean Corpuscular Hgb 29.8 pg (27.0-32.0); Mean Corpuscular Volume 89.9 fL (80-94); Mean Platelet Vol. 8.8 fl (6.2-12.0); Monocyte# 0.28 X10^3/uL; Monocyte% 5.7 % (0-10); NRBC Flagged by Analyzer 0 % (0-5); Neutrophil # 2.97 X10^3/uL (2.7-7.7); Neutrophil % 61.1 % (47-70); Platelet Count 234 K/mm3 (150-450); RBC Distribution Width CV 12.8 % (11.6-14.6); RBC Distribution Width SD 41.8 fl (35.1-43.9); Red Blood Count 5.37 M/mm3 (4.6-6.2); White Blood Count 4.9 K/mm3 (4.4-11.0)
[2019-09-28 07:46] LABS: ALB/GLOB Ratio 1.2 RATIO (0.9-2.4); AST(SGOT) 21 U/L (15-37); Alanine Aminotransfer ALT/SGPT 40 U/L (16-61); Albumin, Serum 3.9 g/dL (3.2-5.0); Alkaline Phosphatase 56 U/L (45-117); Anion Gap 4 (5-15); BUN 19 mg/dL (7-18); BUN/Creat Ratio 21.8 RATIO (10-20); Calcium,Total 8.7 mg/dL (8.5-10.1); Chloride 109 mmol/L (98-107); Cholesterol 109 mg/dL (200); Creatinine, Serum 0.87 mg/dL (0.70-1.30); EST Glomerular Filtration Rate 94 mL/min (>60); Est Glom Filt Rate - Afr Amer 114 mL/min (>60); Globulin 3.2 g/dL (2.2-4.2); Glucose 103 mg/dL (74-106); High Density Lipoprotein 42 mg/dL; Potassium 3.9 mmol/L (3.5-5.1); Protein, Total 7.1 g/dL (6.4-8.2); Sodium Level 141 mmol/L (136-145); Triglycerides 73 mg/dL; Very Low Density Lipoprotein 15 mg/dL (5-40)
[2019-09-28 07:57] LABS: Homocysteine 8.4 umol/L (3.2-10.7)
== END ==
PROVIDERS: Family Provider Family Medicine Geriatric Medicine; PCP Family Medicine Geriatric Medicine; Referring Provider Psychiatry & Neurology Neurology; Visit Provider Psychiatry & Neurology Neurology
DX: R93.0 Abnormal findings on diagnostic imaging of skull and head, not elsewhere classified (principal); I69.351 Hemiplegia and hemiparesis following cerebral infarction affecting right dominant side; I63.9 Cerebral infarction, unspecified
CPT/HCPCS: 36415; 80053; 80061; 83090; 85025

== ENCOUNTER 2019-10-08 06:49 | Day surgery (SDC) | payer OTHER, SELFPAY ==
[2019-09-26 14:55] VITALS: BMI 31.2
[2019-10-04 09:07] VITALS: BMI 31.2
--- NOTE | 2019-10-08 08:37 | CL.IE_ITS ---
Patient: ESPERANZA DAVISON Study Date: 10/08/2019 Performing: Rodo Bang MD : 1955 Age: 63 Gender: male PROCEDURES PERFORMED [id number] OF LOOP RECORDER INDICATIONS Cryptogenic stroke PROCEDURE DETAILS The patient was brought to the Catheterization Lab in the postabsorptive nonsedated state. Infor med consent was obtained prior to the procedure. Local anesthetic was given subcutaneously to the le ft upper chest area with Lidocaine 2%. Incision was made to the right upper chest. Steri-strips appli ed to Lt chest area. The patient tolerated the procedure well. Estimated Blood Loss: < 10 mls IMPLANTED / EX-PLANTED DEVICES IMPLANTED DEVICE(S): ICM Reveal LINQ - Store Operations Associate: [employer], Model # [id number] Serial # [id number] DEVICE PARAMETERS CONCLUSIONS / RECOMMENDATIONS Device Recommendations: Follow up with Primary Care Physician PROCEDURE MEDICATIONS Versed 1 mg IV Oxygen: 2 L/min via nasal cannula Signed By Rodo Bang MD On 10/08/2019 08:36:14 Rodo Bang MD
== END 2019-10-08 09:45 | disposition home or self-care (01) ==
LOC: CLSP 06:50
PROVIDERS: Family Provider Family Medicine Geriatric Medicine; PCP Family Medicine Geriatric Medicine; Referring Provider Internal Medicine Cardiovascular Disease; Visit Provider Internal Medicine Cardiovascular Disease
DX: I69.351 Hemiplegia and hemiparesis following cerebral infarction affecting right dominant side (principal); I10 Essential (primary) hypertension; E78.5 Hyperlipidemia, unspecified; Z79.02 Long term (current) use of antithrombotics/antiplatelets; Z79.82 Long term (current) use of aspirin; Z79.899 Other long term (current) drug therapy
CPT/HCPCS: 33285; 99152; J7040

== ENCOUNTER → 2019-10-19 06:02 | Outpatient (CLI) | payer OTHER, SELFPAY ==
[2019-10-04 09:07] VITALS: BMI 31.2
[2019-10-19 07:01] LABS: Homocysteine 10.6 umol/L (3.2-10.7)
[2019-10-19 07:30] LABS: International Normalized Ratio 1.1; Prothrombin Time (Protime)PT. 13.5 SECONDS (11.7-14.9)
[2019-10-19 07:31] LABS: Partial Thromboplast Time 29.4 Seconds (24.1-36.2)
[2019-10-19 07:51] LABS: CRP < 2.90 mg/L (0.0-3.0)
[2019-10-24 14:08] LABS: Dilute Prothrombin Time (dPT) 38.7 sec (0.0-55.0); Dilute Russell Viper Venom 32.8 sec (0.0-47.0); PTT-LA 35.1 sec (0.0-51.9); Thrombin Time 18.6 sec (0.0-23.0)
[2019-10-25 16:08] LABS: Anti-Cardiolipin Ab, IgA, Qn < 9 APL U/mL (0-11); Anti-Cardiolipin Ab, IgG, Qn < 9 GPL U/mL (0-14); Anti-Cardiolipin Ab, IgM, Qn < 9 MPL U/mL (0-12); Interpretation Comment: (.)
== END ==
PROVIDERS: Family Provider Family Medicine Geriatric Medicine; PCP Family Medicine Geriatric Medicine; Referring Provider Psychiatry & Neurology Neurology; Visit Provider Psychiatry & Neurology Neurology
DX: I82.431 Acute embolism and thrombosis of right popliteal vein (principal)
CPT/HCPCS: 36415; 81241; 83090; 85610; 85730; 86140; 86147

== ENCOUNTER → 2019-10-19 14:46 | Outpatient (CLI) | payer OTHER, SELFPAY ==
[2019-10-04 09:07] VITALS: BMI 31.2
--- NOTE | 2019-10-19 14:51 | VDLE_ITS ---
Reason For Study: DVT RIGHT LEFT GSV is normal. GSV is normal. CFV is compressible, spontaneous, phasic, CFV is compressible, spontaneous, phasic, competent and demonstrates normal competent, and demonstrates normal augmentation. augmentation. FV is compressible, spontaneous, phasic, FV is compressible, spontaneous, phasic, competent and demonstrates normal competent and demonstrates normal augmentation. augmentation. POP V is compressible, spontaneous, phasic, POP V is compressible, spontaneous, phasic, competent and demonstrates normal competent and demonstrates normal augmentation. augmentation. T/P Trunk is compressible. T/P Trunk is compressible. PTV is compressible. PTV is compressible. RT PerV is compressible. LT PerV is compressible. Procedure Exam performed in department. A preliminary report was called and/or faxed to Kallie. Interpretation Summary Deep veins of the lower extremities are bilaterally patent and compressible segmentally. There is no evidence of deep vein thrombosis on either side. Valvular competence appears intact within the proximal deep venous systems bilaterally. The great saphenous veins appear bilaterally patent and compressible segmentally. Ordering Physician: Carlos Arreguin Referring Physician: Phi Garcia Chi Performed By: Giselle Coker RVT
== END ==
PROVIDERS: Family Provider Family Medicine Geriatric Medicine; PCP Family Medicine Geriatric Medicine; Referring Provider Psychiatry & Neurology Neurology; Visit Provider Psychiatry & Neurology Neurology
DX: I82.431 Acute embolism and thrombosis of right popliteal vein (principal)
CPT/HCPCS: 93970

== ENCOUNTER → 2019-11-01 16:30 | Outpatient (CLI) | payer OTHER, SELFPAY ==
[2019-10-04 09:07] VITALS: BMI 31.2
[2019-11-01 17:04] LABS: Absolute Lymphocyte Count 1.44 X10^3/uL (0.83-4.51); Basophil# 0.05 X10^3/uL; Basophil% 0.8 % (0-1); Eosinophils% 1.7 % (0-5); Hematocrit 46.9 % (40-54); Hemoglobin 15.7 g/dL (13.0-16.5); Lymphocyte # 1.44 X10^3/ul (4.0); Mean Corp Hgb Conc 33.5 g/dL (32-36); Mean Corpuscular Volume 89.7 fL (80-94); Mean Platelet Vol. 9.2 fl (6.2-12.0); Monocyte# 0.37 X10^3/uL; Monocyte% 6.2 % (0-10); NRBC Flagged by Analyzer 0 % (0-5); Neutrophil # 4.03 X10^3/uL (2.7-7.7); Platelet Count 250 K/mm3 (150-450); RBC Distribution Width CV 12.8 % (11.6-14.6); RBC Distribution Width SD 42.2 fl (35.1-43.9); Red Blood Count 5.23 M/mm3 (4.6-6.2)
[2019-11-01 18:02] LABS: ALB/GLOB Ratio 1.2 RATIO (0.9-2.4); AST(SGOT) 23 U/L (15-37); Alanine Aminotransfer ALT/SGPT 37 U/L (16-61); Alkaline Phosphatase 51 U/L (45-117); Anion Gap 4 (5-15); BUN 18 mg/dL (7-18); BUN/Creat Ratio 21.7 RATIO (10-20); Calcium,Total 9.1 mg/dL (8.5-10.1); Chloride 103 mmol/L (98-107); Creatinine, Serum 0.83 mg/dL (0.70-1.30); EST Glomerular Filtration Rate 100 mL/min (>60); Est Glom Filt Rate - Afr Amer 121 mL/min (>60); Globulin 3.2 g/dL (2.2-4.2); Glucose 75 mg/dL (74-106); PSA,Total- Diagnostic 4.29 ng/mL (0.0-4.0); Protein, Total 7.2 g/dL (6.4-8.2); Sodium Level 137 mmol/L (136-145); Thyroid Stim Hormone (TSH) 0.44 uIU/mL (0.358-3.74)
== END ==
PROVIDERS: PCP Family Medicine Geriatric Medicine; Visit Provider Family Medicine Geriatric Medicine
DX: I10 Essential (primary) hypertension (principal); C61 Malignant neoplasm of prostate
CPT/HCPCS: 36415; 80053; 84153; 84443; 85025

== ENCOUNTER → 2020-05-05 09:22 | Outpatient (CLI) | payer OTHER, SELFPAY ==
[2019-10-04 09:07] VITALS: BMI 31.2
[2020-05-05 12:17] LABS: Absolute Lymphocyte Count 1.53 X10^3/uL (0.83-4.51); Absolute Neutrophil Count 3.6 X10^3/uL (2.0-7.7); Basophil# 0.04 X10^3/uL; Basophil% 0.7 % (0-1); Eosinophil# 0.13 X10^3/uL; Eosinophils% 2.3 % (0-5); Hematocrit 48.7 % (40-54); Lymphocyte # 1.53 X10^3/ul (4.0); Lymphocyte % 27.2 % (19-41); Mean Corp Hgb Conc 32.9 g/dL (32-36); Mean Corpuscular Hgb 29.7 pg (27.0-32.0); Mean Corpuscular Volume 90.4 fL (80-94); Mean Platelet Vol. 9.5 fl (6.2-12.0); Monocyte# 0.31 X10^3/uL; Monocyte% 5.5 % (0-10); NRBC Flagged by Analyzer 0 % (0-5); Neutrophil # 3.59 X10^3/uL (2.7-7.7); Neutrophil % 63.8 % (47-70); Platelet Count 242 K/mm3 (150-450); RBC Distribution Width CV 13.1 % (11.6-14.6); RBC Distribution Width SD 42.8 fl (35.1-43.9); Red Blood Count 5.39 M/mm3 (4.6-6.2); White Blood Count 5.6 K/mm3 (4.4-11.0)
[2020-05-05 13:06] LABS: ALB/GLOB Ratio 1.2 RATIO (0.9-2.4); AST(SGOT) 20 U/L (15-37); Alanine Aminotransfer ALT/SGPT 37 U/L (16-61); Albumin, Serum 3.9 g/dL (3.2-5.0); Alkaline Phosphatase 53 U/L (45-117); Anion Gap 5 (5-15); BUN 17 mg/dL (7-18); BUN/Creat Ratio 20.5 RATIO (10-20); Calcium,Total 8.6 mg/dL (8.5-10.1); Chloride 105 mmol/L (98-107); Creatinine, Serum 0.83 mg/dL (0.70-1.30); EST Glomerular Filtration Rate 100 mL/min (>60); Est Glom Filt Rate - Afr Amer 120 mL/min (>60); Globulin 3.2 g/dL (2.2-4.2); Glucose 82 mg/dL (74-106); Potassium 3.9 mmol/L (3.5-5.1); Protein, Total 7.1 g/dL (6.4-8.2); Sodium Level 137 mmol/L (136-145); Thyroid Stim Hormone (TSH) 0.63 uIU/mL (0.358-3.74)
== END ==
PROVIDERS: PCP Family Medicine Geriatric Medicine; Visit Provider Family Medicine Geriatric Medicine
DX: I10 Essential (primary) hypertension (principal)
CPT/HCPCS: 36415; 80053; 84443; 85025

== ENCOUNTER → 2020-07-31 10:32 | Outpatient (CLI) | payer OTHER, SELFPAY ==
[2019-10-04 09:07] VITALS: BMI 31.2
--- NOTE | 2020-07-31 10:33 | VDLE_ITS ---
Reason For Study: edema RIGHT GSV is normal. CFV is compressible, spontaneous, phasic, competent and demonstrates normal augmentation. FV is compressible, spontaneous, phasic, competent and demonstrates normal augmentation. POP V is compressible, spontaneous, phasic, competent and demonstrates normal augmentation. T/P Trunk is compressible. PTV is compressible. RT PerV is compressible. Procedure This is a venous duplex using B-mode, color flow and spectral Doppler. Exam performed in department. The exam was abbreviated due to the COVID 19 protocol. The exam was diagnostic. A preliminary report was called and/or faxed to Dr. Garcia. Interpretation Summary Deep veins of the right lower extremity are patent and compressible segmentally. There is no evidence of right lower extremity deep vein thrombosis. Valvular competence appears intact within the proximal deep venous system on the right . The right great saphenous vein appears patent and compressible segmentally. Ordering Physician: Phi Garcia Performed By: Vincent Robertson RVT
== END ==
PROVIDERS: PCP Family Medicine Geriatric Medicine; Visit Provider Family Medicine Geriatric Medicine
DX: R60.0 Localized edema (principal)
CPT/HCPCS: 93971

== ENCOUNTER → 2020-09-03 14:49 | Outpatient (CLI) | payer OTHER, SELFPAY ==
[2019-10-04 09:07] VITALS: BMI 31.2
--- NOTE | 2020-09-03 14:53 | RAD_ITS ---
HISTORY: RIGHT SHOULDER PAIN STARTING TUESDAY. NO KNOWN INJURY. Exam: Right Shoulder 4 images COMPARISON: February 09, 2019 FINDINGS: # of images incl. paperwork: 4 XR Shoulder Min 2 Views: The humeral head is well-positioned within the glenoid fossa. There is slight elevation of the right humeral head within the right glenoid fossa with some osteophytes on the glenoid and the humeral head No fracture or subluxation. The acromioclavicular joint is arthritic. The adjacent chest is unremarkable. RAD/Shoulder min 2 Views IMPRESSION: Mild right shoulder arthritis. Calcific tendinosis demonstrated on the previous study is not identified on the current study. This is likely just due to different angulation of the humeral head relative to the ossification within the tendon of the Right shoulder. at 0615 Reported and signed by: Keon Mina MD Electronically Signed: Keon Mina MD at 6:14 EST Tel , Service support ,
== END ==
PROVIDERS: PCP Family Medicine Geriatric Medicine; Referring Provider Family Medicine Geriatric Medicine; Visit Provider Family Medicine Geriatric Medicine
DX: M25.511 Pain in right shoulder (principal)
CPT/HCPCS: 73030

== ENCOUNTER → 2020-11-03 10:00 | Outpatient (CLI) | payer OTHER, SELFPAY ==
[2020-09-16 07:47] VITALS: BMI 31.6
[2020-11-03 12:49] LABS: Absolute Lymphocyte Count 1.76 X10^3/uL (0.83-4.51); Absolute Neutrophil Count 3.3 X10^3/uL (2.0-7.7); Basophil# 0.04 X10^3/uL; Basophil% 0.7 % (0-1); Eosinophil# 0.09 X10^3/uL; Eosinophils% 1.6 % (0-5); Hematocrit 51.4 % (40-54); Hemoglobin 16.8 g/dL (13.0-16.5); Lymphocyte # 1.76 X10^3/ul (4.0); Lymphocyte % 31.5 % (19-41); Mean Corp Hgb Conc 32.7 g/dL (32-36); Mean Corpuscular Hgb 29.4 pg (27.0-32.0); Mean Platelet Vol. 9.4 fl (6.2-12.0); Monocyte# 0.37 X10^3/uL; Monocyte% 6.6 % (0-10); NRBC Flagged by Analyzer 0 % (0-5); Neutrophil % 59.1 % (47-70); Platelet Count 267 K/mm3 (150-450); RBC Distribution Width CV 13.1 % (11.6-14.6); RBC Distribution Width SD 43.2 fl (35.1-43.9); Red Blood Count 5.71 M/mm3 (4.6-6.2); White Blood Count 5.6 K/mm3 (4.4-11.0)
[2020-11-03 13:20] LABS: ALB/GLOB Ratio 1.2 RATIO (0.9-2.4); AST(SGOT) 23 U/L (15-37); Alanine Aminotransfer ALT/SGPT 34 U/L (16-61); Alkaline Phosphatase 55 U/L (45-117); Anion Gap 8 (5-15); BUN 16 mg/dL (7-18); BUN/Creat Ratio 16.5 RATIO (10-20); Calcium,Total 8.9 mg/dL (8.5-10.1); Chloride 104 mmol/L (98-107); Creatinine, Serum 0.97 mg/dL (0.70-1.30); EST Glomerular Filtration Rate 83 mL/min (>60); Est Glom Filt Rate - Afr Amer 101 mL/min (>60); Globulin 3.4 g/dL (2.2-4.2); Glucose 88 mg/dL (74-106); PSA,Total - Annual Screen 4.32 ng/mL (0.00-4.00); Potassium 4.4 mmol/L (3.5-5.1); Protein, Total 7.4 g/dL (6.4-8.2); Sodium Level 137 mmol/L (136-145); Thyroid Stim Hormone (TSH) 1.08 uIU/mL (0.358-3.74)
== END ==
PROVIDERS: PCP Family Medicine Geriatric Medicine; Visit Provider Family Medicine Geriatric Medicine
DX: I10 Essential (primary) hypertension (principal); Z12.5 Encounter for screening for malignant neoplasm of prostate
CPT/HCPCS: 36415; 80053; 84153; 84443; 85025; G0103

== ENCOUNTER 2020-12-23 10:19 | Outpatient (RCR) | payer OTHER, SELFPAY ==
[2020-09-16 07:47] VITALS: BMI 31.6
[2020-12-23] MEDS: COVID-19 VACC, MRNA(PFIZER)/PF 30 MCG/0.3 ML SYRINGE IM (10:15)
[2021-01-13] MEDS: COVID-19 VACC, MRNA(PFIZER)/PF 30 MCG/0.3 ML SYRINGE IM (09:55)
== END 2021-03-17 23:59 ==
LOC: IMMUN 10:19
PROVIDERS: PCP Family Medicine Geriatric Medicine; Visit Provider Family Medicine
DX: Z23 Encounter for immunization (principal)
CPT/HCPCS: 0001A; 0002A; 91300

== ENCOUNTER → 2020-12-26 13:40 | Outpatient (CLI) | payer OTHER, SELFPAY ==
[2020-09-16 07:47] VITALS: BMI 31.6
[2020-12-26 14:53] LABS: PSA,Total- Diagnostic 5.94 ng/mL (0.0-4.0)
== END ==
PROVIDERS: PCP Family Medicine Geriatric Medicine; Visit Provider Urology
DX: R97.20 Elevated prostate specific antigen [PSA] (principal)
CPT/HCPCS: 36415; 84153

== ENCOUNTER → 2021-03-27 08:20 | Outpatient (CLI) | payer OTHER, SELFPAY ==
[2020-09-16 07:47] VITALS: BMI 31.6
[2021-03-27 09:28] LABS: PSA,Total- Diagnostic 4.93 ng/mL (0.0-4.0)
== END ==
PROVIDERS: PCP Family Medicine Geriatric Medicine; Referring Provider Urology; Visit Provider Urology
DX: N40.1 Benign prostatic hyperplasia with lower urinary tract symptoms (principal)
CPT/HCPCS: 36415; 84153

== ENCOUNTER → 2021-05-07 09:24 | Outpatient (CLI) | payer OTHER, SELFPAY ==
[2020-09-16 07:47] VITALS: BMI 31.6
[2021-05-07 10:51] LABS: Absolute Lymphocyte Count 1.57 X10^3/uL (0.83-4.51); Basophil# 0.05 X10^3/uL; Hemoglobin 17.2 g/dL (13.0-16.5); Lymphocyte # 1.57 X10^3/ul (0.83-4.51); Lymphocyte % 30.7 % (19-41); Mean Corp Hgb Conc 33.1 g/dL (32-36); Mean Corpuscular Volume 87.7 fL (80-94); Mean Platelet Vol. 9.2 fl (6.2-12.0); Monocyte# 0.36 X10^3/uL; NRBC Flagged by Analyzer 0 % (0-5); Neutrophil # 3.01 X10^3/uL (2.7-7.7); Neutrophil % 58.9 % (47-70); Platelet Count 240 K/mm3 (150-450); RBC Distribution Width CV 13.1 % (11.6-14.6); RBC Distribution Width SD 42.3 fl (35.1-43.9); Red Blood Count 5.93 M/mm3 (4.6-6.2); White Blood Count 5.1 K/mm3 (4.4-11.0)
[2021-05-07 11:05] LABS: Vitamin D,25 Hydroxy 37.5 ng/mL
[2021-05-07 11:13] LABS: ALB/GLOB Ratio 1.1 RATIO (0.9-2.4); AST(SGOT) 23 U/L (15-37); Alanine Aminotransfer ALT/SGPT 39 U/L (16-61); Alkaline Phosphatase 52 U/L (45-117); Anion Gap 7 (5-15); BUN 18 mg/dL (7-18); BUN/Creat Ratio 19.7 RATIO (10-20); Calcium,Total 8.6 mg/dL (8.5-10.1); Chloride 107 mmol/L (98-107); Creatinine, Serum 0.91 mg/dL (0.70-1.30); EST Glomerular Filtration Rate 89 mL/min (>60); Est Glom Filt Rate - Afr Amer 108 mL/min (>60); Globulin 3.5 g/dL (2.2-4.2); Glucose 101 mg/dL (74-106); Protein, Total 7.5 g/dL (6.4-8.2); Sodium Level 137 mmol/L (136-145)
== END ==
PROVIDERS: PCP Family Medicine Geriatric Medicine; Visit Provider Family Medicine Geriatric Medicine
DX: I10 Essential (primary) hypertension (principal); E55.9 Vitamin D deficiency, unspecified
CPT/HCPCS: 36415; 80053; 82306; 84443; 85025

== ENCOUNTER → 2021-06-17 10:06 | Outpatient (CLI) | payer OTHER, SELFPAY ==
--- NOTE | 2021-06-17 10:09 | RAD_ITS ---
STUDY: X-RAY - LUMBAR SPINE REASON FOR EXAM: Male, 65 years old. LOW BACK PAIN TECHNIQUE: 3 view(s) of the lumbar spine were obtained. 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 There is no substantial scoliosis. There is a normal alignment of the vertebrae. Mild spondylosis of the endplates. Disc space narrowing with endplate sclerosis most profound L5-S1 seen to a similar degree on previous examination. Facet arthropathy L1-L5. There is mild atherosclerotic calcification of the abdominal aorta without a demonstrated aneurysm. RAD/Lumbar Spine 2 or 3 Views IMPRESSION: Mild progression of facet arthropathy suspected. Near ankylosis of L5-S1 as above, not significantly changed. Mild degenerative changes. There is stable straightening of the normal lordotic curve, a nonspecific finding, which may be due to positioning or which might be due to muscle spasm. Mild arteriosclerosis of the abdominal aorta not significantly changed. Electronically Signed: Leticia Schulz MD at 4:56 EDT , Service support ,
== END ==
LOC: RAD 10:08 → LAB 13:40
PROVIDERS: PCP Family Medicine Geriatric Medicine; Referring Provider Family Medicine Geriatric Medicine; Visit Provider Family Medicine Geriatric Medicine
DX: M54.5 Low back pain (principal); N39.0 Urinary tract infection, site not specified
CPT/HCPCS: 72100; 87086

== ENCOUNTER 2021-10-06 05:53 | Day surgery (SDC) | payer OTHER, SELFPAY ==
--- NOTE | 2021-09-30 09:13 | EKG12_ITS ---
Test Reason : PREOP Blood Pressure : / mmHG Vent. Rate : 080 BPM Atrial Rate : 080 BPM P-R Int : 158 ms QRS Dur : 080 ms QT Int : 356 ms P-R-T Axes : 051 010 037 degrees QTc Int : 410 ms Normal sinus rhythm Low voltage QRS Borderline ECG Confirmed by JEAN CARLOS CARLSON, NASREEN ([id number]), editorial intern ORLANDO BOLDEN ([id number]) on 10/01/2021 11:41:48 AM Referred By: Gibran Holliday Confirmed By:NASREEN EVANGELISTA MD
[2021-09-30 09:15] LABS: Hematocrit 46.8 % (40-54); Hemoglobin 15.9 g/dL (13.0-16.5); Mean Corpuscular Hgb 29.8 pg (27.0-32.0); Mean Corpuscular Volume 87.8 fL (80-94); Mean Platelet Vol. 9.3 fl (6.2-12.0); Platelet Count 244 K/mm3 (150-450); RBC Distribution Width CV 12.7 % (11.6-14.6); RBC Distribution Width SD 40.9 fl (35.1-43.9); Red Blood Count 5.33 M/mm3 (4.6-6.2); White Blood Count 5.6 K/mm3 (4.4-11.0)
[2021-09-30 09:39] LABS: Anion Gap 8 (5-15); BUN 17 mg/dL (7-18); BUN/Creat Ratio 18.9 RATIO (10-20); Calcium,Total 8.8 mg/dL (8.5-10.1); Chloride 105 mmol/L (98-107); EST Glomerular Filtration Rate 90 mL/min (>60); Est Glom Filt Rate - Afr Amer 109 mL/min (>60); Glucose 124 mg/dL (74-106); Potassium 3.6 mmol/L (3.5-5.1); Sodium Level 139 mmol/L (136-145)
[2021-10-06] VITALS (13 sets, daily range): BP systolic 103–149; BP diastolic 68–88; PULSE 74–105; RESP 16–18; TEMP 35.7–37.1; O2SAT 94–100; BMI 32.6
[2021-10-06] MEDS: Lactated Ringers 1,000 ML 15 ML IV ×2 (06:29→20:15)
--- NOTE | 2021-10-06 07:30 | PROS_PTH ---
PATIENT: ESPERANZA DAVISON [place] [facility] [id number] AGE/SX: 65/M ROOM: RE10/06/[address]: Dr. Gibran Holliday MD : 1955 BED: DIS: 10/07/2021 SPEC #: [id number] RECD: 10/06/21 11:38 STATUS: GAUDENCIO AMBROSIO #: [id number] RENUKA: 10/06/21 07:[address]: Gibran Holliday DEPT: SURGICAL PATHOLOGY RECD BY: Lesa Bernal ENTERED: 10/06/21 13:06 SP TYPE: TURP OTHR DR: Dr. Phi Garcia MD Tissues: Prostate, NOS Procedures: Surgery Specimen Level IV HEADER OPERATION: Cysto, TUR prostate, Olymp[employer] PRE-OP DIAGNOSIS: Benign prostatic hyperplasia with lower urinary tract symptoms; feeling of incomplete bladder emptying TISSUE SUBMITTED: Prostate tissue MICROSCOPIC DIAGNOSIS Prostate tissue, TUR: Benign prostatic hyperplasia, glandular and stromal type. Chronic inflammation. TANIA:yaritza 10/07/2021 MICROSCOPIC DESCRIPTION Slides are reviewed. GROSS DESCRIPTION Received is one container labeled with the patient's name and designated prostate tissue. The specimen consists of multiple irregular fragments of pink-ritter, rubbery, soft tissue that in aggregate weigh 22.8 gm and measure in aggregate 7 x 7 x 3 cm. [employer] Enrichment Director tissue is submitted in ten cassettes. / TANIA:yaritza 10/06/21 TC:5 CPT: 12713
--- NOTE | 2021-10-06 08:50 | PCM.HP.STD ---
HPI - General HPI Narrative ESPERANZA DAVISON, is a 65 M who presents FOR A [facility] Medical History (Updated 09/29/21 @ 15:25 by Marisela Rock) Cardiology follow-up encounter Essential hypertension Gastric reflux High cholesterol History of CVA (cerebrovascular accident) (08/07/19) History of echocardiogram History of stroke Hyperlipidemia Hypertension Non-smoker Right hemiparesis Right shoulder strain Shoulder pain Stroke/cerebrovascular accident Vascular dementia Wears glasses Home Medications clopidogrel 75 mg tablet 75 mg PO DAILY 09/25/19 [History Last Taken 09/29/21] lisinopril 20 mg tablet 20 mg PO DAILY 09/26/19 [History Last Taken 10/06/21 05:00] famotidine 40 mg tablet 40 mg PO DAILY PRN 09/15/21 [History Last Taken 10/06/21 05:00] rosuvastatin 10 mg tablet 10 mg PO QHS tab 09/15/21 [History Last Taken 10/05/21] ciprofloxacin HCl [Cipro] 500 mg PO BID #14 tab 10/06/21 [Rx Last Taken Unknown] Allergy/AdvReac Type Severity Reaction Status Date / Time No Known Allergies Allergy Verified 10/06/21 06:19 Family History Brother Heart disease atrial fib Mother Heart disease atrial fib Other Hypertension Surgical History (Updated 09/29/21 @ 15:25 by Marisela Rock) History of back surgery History of loop recorder (10/08/19) Hx of appendectomy Social History Smoking Status: Never smoker alcohol intake: never substance use type: does not use caffeine: Yes Type: coffee Number of servings: 1 Vital Signs Vital Signs Vital Signs: 10/06/21 06:15 Temperature 97.9 F Temperature Source Temporal Pulse Rate 77 Respiratory Rate 16 Respiratory Pattern Normal Blood Pressure 124/83 H Blood Pressure Mean 96 Blood Pressure Source Monitor Blood Pressure Position Sitting Blood Pressure Location Right Arm Pulse Ox 95 Oxygen Delivery Method Room Air Weight Weight: 89.1 kg Body Mass Index (BMI) 32.6 Results Lab / Micro Data Result Diagrams: 09/30/21 08:55 09/30/21 08:55
--- NOTE | 2021-10-06 08:50 | PCM.DC ---
Discharge Instructions Diet Discharge Diet: No restrictions Activity Discharge Activity: Return to Normal Activity and May Not Drive (while taking narcotic pain medications.) Dressing / Incision Call your doctor if you observe: Fever of 101 or Higher Follow Up Care Please Follow Up With: Gibran Holliday MD When: Call [phone] for an appointment Test Results: Test results from this visit will be discussed in further detail at your follow-up appointment, if applicable. Discharge Plan Admission Primary Reason for Your Visit: TURP Attending Provider: Gibran Holliday Primary Care Provider: Phi Garcia Chi Discharge Orders/Prescriptions Prescriptions: New ciprofloxacin HCl [Cipro] 500 mg tablet 500 mg PO BID Qty: 14 RF: 0 Continued lisinopril 20 mg tablet 20 mg PO DAILY RF: 0 rosuvastatin 10 mg tablet 10 mg PO QHS RF: 0 famotidine 40 mg tablet 40 mg PO DAILY PRN (Reason: GERD) RF: 0 Held clopidogrel 75 mg tablet 75 mg PO DAILY RF: 0 Hold Instructions: Resume on 10/20/21. Discontinued tamsulosin 0.4 mg capsule 0.4 mg PO DAILY RF: 0 finasteride 5 mg tablet 5 mg PO DAILY RF: 0 Referrals / Follow Up: Gibran Holliday MD [STAFF PHYSICIAN] - Phi Garcia Chi, MD [Primary Care Provider] - Disposition Disposition (needs filled in before D/C Order can be placed): Home, Self Care
--- NOTE | 2021-10-06 08:51 | OP.PCM_ITS ---
Report of Operation Date of Procedure: 10/06/21 Pre-Operative Diagnosis: bph with obstuction Post-Operative Diagnosis: same Surgery/Procedure Performed:: TURP Description of Surgical Findings:: In the preoperative setting I discussed with the patient how the surgery would be done with expect afterwards. We discussed how a prostate resection is done and we discussed the risk of the surgery including, bleeding, infection, retrograde ejaculation, changes with ejaculation or intercourse,. We discussed the possibility that the resection of the prostate may not alleviate his urinary symptoms. We discussed the small risk of developing scar tissue along the urethral channel and strictures. We also discussed the chance of the prostate could grow back and he may need further surgery or treatment in the future for prostate problems. Patient was taken back to the operating room, timeout procedure was performed, he was identified and marked and placed on the operating room table. He underwent general anesthesia. He was placed in dorsolithotomy position. Penis and testicles were prepped and draped in usual sterile fashion. Went into the bladder using the visual obturator with a resectoscope. Once inside the bladder identified the right and left ureteral orifice. I then identified the prostate and the anatomy of the prostate. I marked out the area of the sphincter and the verumontanum was identified. I then proceeded with the prostate resection first resected the median lobe. And then resected the right lobe of the prostate. Then to resect the left lobe of the prostate. I then resected the apical tissue of the prostate. This was a complete resection of all obstructive tissue to improve voiding and relieve obstruction. I then made sure that there was no injury to the sphincter or the verumontanum was still intact. At the end of the resection all the chips were Ellik out of the bladder. I then identified the left and right ureteral orifice and these were confirmed to be in good position and effluxing and not injured. The resectoscope was removed, a 22 Brazilian catheter was placed into the bladder on continuous irrigation. And the urine was fairly light pink color and draining normally. He was taken back to the PACU in good condition. Surgeon: татьяна Type of Anesthesia: General Drains: 22fr 3 way Admit VTE Documentation VTE Present on Admission: No VTE Mechan Device Prophylaxis: SCD's VTE Pharm Prophylaxis ordered?: No
[2021-10-06] MEDS: Ciprofloxacin 500 MG Tablet PO ×2 (12:15→21:28)
--- NOTE | 2021-10-06 14:36 | CASEMGMT ---
Pt nurse asked FANY DOMINGUEZ to meet with pt regarding insurance questions. FANY DOMINGUEZ in to pt room. Pt states if he is inpatient, his insurance needs notified. Made pt aware that he is not inpatient and that his status is SDC. Pt requests this RN ANGELICA to write down name in case pt should need it later, did so per request. Pt denied further needs.
[2021-10-06] MEDS: Acetaminophen 500 MG Tablet PO (21:28)
[2021-10-06] MEDS: Atorvastatin Calcium 20 MG Tablet PO (21:28)
[2021-10-07 04:35] VITALS: BP 124/79; PULSE 71; RESP 18; TEMP 36.7; O2SAT 94
[2021-10-07] MEDS: Ibuprofen 600 MG Tablet PO (04:38)
[2021-10-07 08:19] VITALS: BP 131/84; PULSE 68; RESP 16; TEMP 36.7; O2SAT 97
--- NOTE | 2021-10-07 09:31 | NURSING ---
NO CLOTS NOTED IN CATHETER TUBING/BAG
[2021-10-07] MEDS: Lisinopril 20 MG Tablet PO (09:58)
[2021-10-07] MEDS: Ciprofloxacin 500 MG Tablet PO (09:58)
[2021-10-07 13:16] VITALS: BP 136/79; PULSE 99; RESP 16; TEMP 36.6
== END 2021-10-07 13:34 | disposition home or self-care (01) ==
LOC: SDC 05:54 → AC 05:54 → MS3 10-07 12:46
PROVIDERS: Anesthesiology; PCP Family Medicine Geriatric Medicine; Referring Provider Urology; Visit Provider Urology
PROC: (CPT 52601; principal; 2021-10-06 07:20)
DX: N40.1 Benign prostatic hyperplasia with lower urinary tract symptoms (principal); R39.14 Feeling of incomplete bladder emptying; N13.8 Other obstructive and reflux uropathy; I10 Essential (primary) hypertension; E78.5 Hyperlipidemia, unspecified; E78.00 Pure hypercholesterolemia, unspecified; F01.50 Vascular dementia, unspecified severity, without behavioral disturbance, psychotic disturbance, mood disturbance, and anxiety; K21.9 Gastro-esophageal reflux disease without esophagitis; Z86.73 Personal history of transient ischemic attack (TIA), and cerebral infarction without residual deficits; Z79.899 Other long term (current) drug therapy
CPT/HCPCS: 00914; 52601; 36415; 80048; 85027; 88305; 93005; J7120; J2405

== ENCOUNTER 2021-11-05 09:31 | Outpatient (CLI) | payer OTHER, SELFPAY ==
[2021-11-05 12:19] LABS: Absolute Lymphocyte Count 2.12 X10^3/uL (0.83-4.51); Absolute Neutrophil Count 3.9 X10^3/uL (2.0-7.7); Basophil# 0.08 X10^3/uL; Basophil% 1.2 % (0-1); Eosinophil# 0.12 X10^3/uL; Eosinophils% 1.8 % (0-5); Hematocrit 49.3 % (40-54); Hemoglobin 16.3 g/dL (13.0-16.5); Lymphocyte # 2.12 X10^3/ul (0.83-4.51); Lymphocyte % 31.6 % (19-41); Mean Corp Hgb Conc 33.1 g/dL (32-36); Mean Corpuscular Hgb 29.2 pg (27.0-32.0); Mean Corpuscular Volume 88.2 fL (80-94); Mean Platelet Vol. 8.9 fl (6.2-12.0); Monocyte# 0.42 X10^3/uL; Monocyte% 6.3 % (0-10); NRBC Flagged by Analyzer 0 % (0-5); Neutrophil # 3.91 X10^3/uL (2.7-7.7); Neutrophil % 58.4 % (47-70); Platelet Count 307 K/mm3 (150-450); RBC Distribution Width SD 41.9 fl (35.1-43.9); Red Blood Count 5.59 M/mm3 (4.6-6.2); White Blood Count 6.7 K/mm3 (4.4-11.0)
[2021-11-05 12:48] LABS: AST(SGOT) 31 U/L (15-37); Alanine Aminotransfer ALT/SGPT 50 U/L (16-61); Albumin, Serum 3.8 g/dL (3.2-5.0); Alkaline Phosphatase 70 U/L (45-117); Anion Gap 5 (5-15); BUN 19 mg/dL (7-18); BUN/Creat Ratio 18.3 RATIO (10-20); Calcium,Total 9.5 mg/dL (8.5-10.1); Chloride 104 mmol/L (98-107); Creatinine, Serum 1.04 mg/dL (0.70-1.30); EST Glomerular Filtration Rate 76 mL/min (>60); Est Glom Filt Rate - Afr Amer 93 mL/min (>60); Globulin 3.7 g/dL (2.2-4.2); Glucose 96 mg/dL (74-106); PSA,Total - Annual Screen 2.32 ng/mL (0.00-4.00); Potassium 4.4 mmol/L (3.5-5.1); Protein, Total 7.5 g/dL (6.4-8.2); Sodium Level 136 mmol/L (136-145); Thyroid Stim Hormone (TSH) 0.74 uIU/mL (0.358-3.74)
== END 2021-11-05 23:59 | disposition short-term general hospital (02) ==
LOC: POLAB3 09:33
PROVIDERS: PCP Family Medicine Geriatric Medicine; Visit Provider Family Medicine Geriatric Medicine
DX: E55.9 Vitamin D deficiency, unspecified (principal); I10 Essential (primary) hypertension; Z12.5 Encounter for screening for malignant neoplasm of prostate
CPT/HCPCS: 36415; 80053; 82306; 84153; 84443; 85025; G0103

== ENCOUNTER 2022-05-06 09:23 | Outpatient (CLI) | payer OTHER, SELFPAY ==
[2022-05-06 12:11] LABS: Absolute Lymphocyte Count 2.11 X10^3/uL (0.83-4.51); Absolute Neutrophil Count 3.5 X10^3/uL (2.0-7.7); Basophil# 0.04 X10^3/uL; Basophil% 0.6 % (0-1); Eosinophil# 0.13 X10^3/uL; Eosinophils% 2.1 % (0-5); Hematocrit 50.4 % (40-54); Hemoglobin 17.1 g/dL (13.0-16.5); Lymphocyte # 2.11 X10^3/ul (0.83-4.51); Lymphocyte % 34.1 % (19-41); Mean Corp Hgb Conc 33.9 g/dL (32-36); Mean Corpuscular Hgb 29.7 pg (27.0-32.0); Mean Corpuscular Volume 87.7 fL (80-94); Mean Platelet Vol. 9.4 fl (6.2-12.0); Monocyte# 0.41 X10^3/uL; Monocyte% 6.6 % (0-10); NRBC Flagged by Analyzer 0 % (0-5); Neutrophil # 3.45 X10^3/uL (2.7-7.7); Platelet Count 254 K/mm3 (150-450); RBC Distribution Width CV 13.3 % (11.6-14.6); RBC Distribution Width SD 42.8 fl (35.1-43.9); Red Blood Count 5.75 M/mm3 (4.6-6.2); White Blood Count 6.2 K/mm3 (4.4-11.0)
[2022-05-06 12:58] LABS: Vitamin D,25 Hydroxy 45.9 ng/mL
[2022-05-06 13:26] LABS: ALB/GLOB Ratio 1.1 RATIO (0.9-2.4); AST(SGOT) 20 U/L (15-37); Alanine Aminotransfer ALT/SGPT 31 U/L (16-61); Albumin, Serum 3.8 g/dL (3.2-5.0); Alkaline Phosphatase 53 U/L (45-117); Anion Gap 8 (5-15); BUN 18 mg/dL (7-18); BUN/Creat Ratio 18.8 RATIO (10-20); Calcium,Total 9.2 mg/dL (8.5-10.1); Chloride 108 mmol/L (98-107); Creatinine, Serum 0.96 mg/dL (0.70-1.30); EST Glomerular Filtration Rate 84 mL/min (>60); Est Glom Filt Rate - Afr Amer 102 mL/min (>60); Globulin 3.5 g/dL (2.2-4.2); Glucose 102 mg/dL (74-106); Potassium 3.9 mmol/L (3.5-5.1); Protein, Total 7.3 g/dL (6.4-8.2); Sodium Level 138 mmol/L (136-145); Thyroid Stim Hormone (TSH) 0.84 uIU/mL (0.358-3.74)
== END 2022-05-06 23:59 | disposition home or self-care (01) ==
LOC: POLAB3 09:25
PROVIDERS: PCP Family Medicine Geriatric Medicine; Visit Provider Family Medicine Geriatric Medicine
DX: I10 Essential (primary) hypertension (principal); E55.9 Vitamin D deficiency, unspecified
CPT/HCPCS: 36415; 80053; 82306; 84443; 85025

== ENCOUNTER → 2022-11-08 | Outpatient (CLI) | payer MEDICARE, SELFPAY ==
--- NOTE | 2022-11-08 11:24 | CT_ITS ---
STUDY: CT ABDOMEN AND PELVIS WITH CONTRAST REASON FOR EXAM: Male, 67 years old. One month history of lower abdominal pain. RADIATION DOSAGE (If Supplied By Facility): CTDIvol = ( 22.34 ) mGy, DLP = ( 1317.62 ) mGycm TECHNIQUE: Transaxial images were obtained from the dome of the diaphragm to the symphysis pubis with oral contrast. Oral and amp; IV Gastrografin and amp; 100mL Isovue-370 was administered. Sagittal and coronal images were reconstructed. Individualized dose optimization techniques were used for this CT. COMPARISON: Comparison is made with prior study dated 04/04/2015. FINDINGS: Calcified left hilar lymph nodes. Mild increased linear markings at the lung bases suggestive of scarring. There is been no change. Small calcified granuloma in the left lower lobe. The visualized portions of the heart are within normal limits. Normal liver. Normal gallbladder and extrahepatic biliary system. Normal spleen. Normal pancreas. Normal bilateral adrenal glands. Normal right kidney. Normal left kidney. There is a small hiatal hernia. Normal small intestine. There are scattered colonic diverticula consistent with diverticulosis. The patient is status post appendectomy. There is scattered atherosclerotic calcification of the abdominal aorta, without a demonstrated aneurysm. Normal inferior vena cava. Normal retroperitoneum. Normal urinary bladder. There is enlargement of the prostate gland. It measures 5.4 cm x 6.2 cm there is evidence of prior TURP. There is indentation of the bladder base. There is a small umbilical hernia containing fat. Disc space narrowing at the L5-S1 level. Straightening of the normal lumbar lordosis. CT/Abdomen/Pelvis WITH Contrast IMPRESSION: Scattered sigmoid diverticula. Small hiatal hernia. Prostatic enlargement with indentation of the bladder base. Prior TURP. Electronically Signed: Robert Thompson MD at 14:15 EST ,
== END | disposition home or self-care (01) ==
LOC: CT 11:21
PROVIDERS: PCP Family Medicine Geriatric Medicine; Referring Provider Family Medicine Geriatric Medicine; Visit Provider Family Medicine Geriatric Medicine
DX: K44.9 Diaphragmatic hernia without obstruction or gangrene (principal); Z90.89 Acquired absence of other organs; K42.9 Umbilical hernia without obstruction or gangrene; K57.30 Diverticulosis of large intestine without perforation or abscess without bleeding; M51.37 Other intervertebral disc degeneration, lumbosacral region; R10.9 Unspecified abdominal pain; E55.9 Vitamin D deficiency, unspecified; I10 Essential (primary) hypertension; Z12.5 Encounter for screening for malignant neoplasm of prostate
CPT/HCPCS: 36415; 74177; 80053; 82306; 84153; 84443; 85025; Q9967; G0103

== ENCOUNTER → 2022-11-08 | Outpatient (CLI) | payer MEDICARE, SELFPAY ==
[2022-11-08 13:28] LABS: Absolute Lymphocyte Count 2.12 X10^3/uL (0.83-4.51); Absolute Neutrophil Count 3.7 X10^3/uL (2.0-7.7); Basophil# 0.06 X10^3/uL; Basophil% 0.9 % (0-1); Eosinophil# 0.11 X10^3/uL; Eosinophils% 1.7 % (0-5); Hematocrit 50.5 % (40-54); Hemoglobin 17.3 g/dL (13.0-16.5); Lymphocyte # 2.12 X10^3/ul (0.83-4.51); Lymphocyte % 33.1 % (19-41); Mean Corp Hgb Conc 34.3 g/dL (32-36); Mean Corpuscular Hgb 29.9 pg (27.0-32.0); Mean Corpuscular Volume 87.2 fL (80-94); Mean Platelet Vol. 9.4 fl (6.2-12.0); Monocyte% 6.2 % (0-10); NRBC Flagged by Analyzer 0 % (0-5); Neutrophil # 3.69 X10^3/uL (2.7-7.7); Neutrophil % 57.6 % (47-70); Platelet Count 262 K/mm3 (150-450); RBC Distribution Width CV 13.4 % (11.6-14.6); RBC Distribution Width SD 43.2 fl (35.1-43.9); Red Blood Count 5.79 M/mm3 (4.6-6.2); White Blood Count 6.4 K/mm3 (4.4-11.0)
[2022-11-08 14:01] LABS: Vitamin D,25 Hydroxy 37.8 ng/mL
[2022-11-08 14:06] LABS: ALB/GLOB Ratio 1.1 RATIO (0.9-2.4); AST(SGOT) 23 U/L (15-37); Alanine Aminotransfer ALT/SGPT 31 U/L (16-61); Albumin, Serum 3.8 g/dL (3.2-5.0); Alkaline Phosphatase 56 U/L (45-117); Anion Gap 10 (5-15); BUN 15 mg/dL (7-18); BUN/Creat Ratio 13.9 RATIO (10-20); Calcium,Total 9.1 mg/dL (8.5-10.1); Chloride 108 mmol/L (98-107); Creatinine, Serum 1.08 mg/dL (0.70-1.30); EST Glomerular Filtration Rate 73 mL/min (>60); Est Glom Filt Rate - Afr Amer 88 mL/min (>60); Globulin 3.6 g/dL (2.2-4.2); Glucose 112 mg/dL (74-106); PSA,Total - Annual Screen 3.28 ng/mL (0.00-4.00); Protein, Total 7.4 g/dL (6.4-8.2); Sodium Level 143 mmol/L (136-145); Thyroid Stim Hormone (TSH) 0.81 uIU/mL (0.358-3.74)
== END | disposition home or self-care (01) ==
LOC: POLAB3 09:52
PROVIDERS: PCP Family Medicine Geriatric Medicine; Visit Provider Family Medicine Geriatric Medicine
DX: E55.9 Vitamin D deficiency, unspecified (principal); I10 Essential (primary) hypertension; Z12.5 Encounter for screening for malignant neoplasm of prostate
CPT/HCPCS: 36415; 80053; 82306; 84153; 84443; 85025; G0103

== ENCOUNTER → 2022-11-10 | Outpatient (CLI) | payer MEDICARE, SELFPAY ==
--- NOTE | 2022-11-10 10:29 | MRI_ITS ---
STUDY: MRI BRAIN WITHOUT CONTRAST REASON FOR EXAM: Male, 67 years old. HEADACHE mishra left hoahaoism, hx stroke 2019 TECHNIQUE: Standardized multiplanar fat and water weighted pulse sequences were obtained. COMPARISON: Head CT dated August 24, 2019. MRI of the brain dated August 24, 2019. FINDINGS: Normal size of the ventricles and extra-axial spaces for the patient''s age. There are a limited number of small white matter hyperintensities, distributed throughout the deep white matter tracts of the cerebral hemispheres, consistent with mild chronic white matter ischemic changes. There is no evidence for recent intracranial ischemia or other cause of cytotoxic edema on diffusion weighted imaging (DWI). Normal T2* images of the brain without demonstrated susceptibility artifact. There is no demonstrated hemosiderin stain. There are no demyelinating plagues of the supratentorial brain, brainstem or cerebellum. There are no findings suspicious for multiple sclerosis (MS). No hydrocephalus is present. There are no focal or suspicious brain parenchymal lesions. Normal bilateral basal ganglia. Normal thalami. There is no extra-axial fluid accumulation. Normal flow voids within the major intracranial circulation suggesting patency by spin echo criteria. Normal sella turcica, pituitary gland, infundibular stalk, optic chiasm and hypothalamus. Normal tectal plate and pineal gland. Normal midbrain, talib and medulla. Normal cerebellum. Normal basal cisterns. Normal bilateral temporal bones. Normal bilateral internal auditory canals. No demonstrated orbital abnormality, within the constraints of a routine brain study. Normal visualized paranasal sinuses. Normal calvarium and skull base. Normal visualized soft tissue structures. Normal visualized upper cervical spine. MRI/Brain without Contrast IMPRESSION: Mild chronic ischemic changes of the brain, as described above. Electronically Signed: Pola Narvaez MD at 15:41 EST ,
== END | disposition home or self-care (01) ==
PROVIDERS: PCP Family Medicine Geriatric Medicine; Referring Provider Family Medicine Geriatric Medicine; Visit Provider Family Medicine Geriatric Medicine
DX: R51.9 Headache, unspecified (principal)
CPT/HCPCS: 70551

== ENCOUNTER → 2023-05-18 | Outpatient (CLI) | payer MEDICARE, SELFPAY ==
[2023-05-18 15:43] LABS: Absolute Lymphocyte Count 2.13 X10^3/uL (0.83-4.51); Absolute Neutrophil Count 4.1 X10^3/uL (2.0-7.7); Basophil# 0.05 X10^3/uL; Basophil% 0.7 % (0-1); Eosinophil# 0.08 X10^3/uL; Eosinophils% 1.2 % (0-5); Hematocrit 51.9 % (40-54); Hemoglobin 16.7 g/dL (13.0-16.5); Lymphocyte # 2.13 X10^3/ul (0.83-4.51); Lymphocyte % 31.1 % (19-41); Mean Corp Hgb Conc 32.2 g/dL (32-36); Mean Corpuscular Hgb 28.8 pg (27.0-32.0); Mean Corpuscular Volume 89.5 fL (80-94); Mean Platelet Vol. 9.4 fl (6.2-12.0); Monocyte# 0.42 X10^3/uL; Monocyte% 6.1 % (0-10); NRBC Flagged by Analyzer 0 % (0-5); Neutrophil # 4.12 X10^3/uL (2.7-7.7); Neutrophil % 60.2 % (47-70); Platelet Count 281 K/mm3 (150-450); RBC Distribution Width CV 13.6 % (11.6-14.6); RBC Distribution Width SD 44.2 fl (35.1-43.9); White Blood Count 6.9 K/mm3 (4.4-11.0)
[2023-05-18 15:52] LABS: Vitamin D,25 Hydroxy 49.2 ng/mL
[2023-05-18 16:01] LABS: AST(SGOT) 23 U/L (15-37); Alanine Aminotransfer ALT/SGPT 35 U/L (16-61); Albumin, Serum 3.6 g/dL (3.2-5.0); Alkaline Phosphatase 62 U/L (45-117); Anion Gap 6 (5-15); BUN 18 mg/dL (7-18); BUN/Creat Ratio 17.3 RATIO (10-20); Calcium,Total 9.1 mg/dL (8.5-10.1); Chloride 107 mmol/L (98-107); Creatinine, Serum 1.04 mg/dL (0.70-1.30); EST Glomerular Filtration Rate 76 mL/min (>60); Est Glom Filt Rate - Afr Amer 92 mL/min (>60); Globulin 3.5 g/dL (2.2-4.2); Glucose 117 mg/dL (74-106); Potassium 3.6 mmol/L (3.5-5.1); Protein, Total 7.1 g/dL (6.4-8.2); Sodium Level 139 mmol/L (136-145); Thyroid Stim Hormone (TSH) 0.55 uIU/mL (0.358-3.74)
== END | disposition home or self-care (01) ==
LOC: LAB 14:19
PROVIDERS: PCP Family Medicine Geriatric Medicine; Referring Provider Family Medicine Geriatric Medicine; Visit Provider Family Medicine Geriatric Medicine
DX: I10 Essential (primary) hypertension (principal); E55.9 Vitamin D deficiency, unspecified
CPT/HCPCS: 36415; 80053; 82306; 84443; 85025

== ENCOUNTER 2023-10-17 08:27 | Day surgery (SDC) | payer MEDICARE, SELFPAY ==
[2023-10-17 08:35] VITALS: BMI 34.6
--- OUTSIDE RECORDS SUMMARY | 2023-10-17 08:53 | XMS RPT_ITS | CCD ---
Author Name Unknown Address [address] [place] [address] Organization [facility] Results Test Name Value Interpretation Reference Range Facil ity Summary Purpose Family History No Family History Records Found Advance Directives No Advanced Directives Records Found Additional Source Comments (unrecognized sect ion and content) No Status Records Found INFORMATION SOURCE (unrecogn ized section and content) FOR RECORDS PERTAINING TO PATIENTS WHO ARE OR HAVE BEEN ENROLLED IN A CHEMICAL DEPENDENCY/SUBSTANCEABUSE PROGRAM, SOME INFORMATION MAY BE OMITTED. This clinical summary was aggregated from multiple sources. Caution should be exercised in using it in the provision of clinical care. This summary normalizes information from multiple sources, and as a consequence, information in this document may materially change the coding, format and clinical context of patient data. In addition, data may be omitted in some cases. CLINICAL DECISIONS SHOULD BE BASED ON THE PRIMARY CLINICAL RECORDS. [employer] provides no warranty or guarantee of the accuracy or completeness of information in this document.
--- NOTE | 2023-10-17 11:06 | CL.IE_ITS ---
Patient: ESPERANZA DAVISON Study Date: 10/17/2023 Performing: Rodo Bang MD : 1955 Age: 67 Gender: male PROCEDURES PERFORMED LP02-([id number])REMOVAL OF LOOP RECORDER INDICATIONS PROCEDURE DETAILS The patient was brought to the Catheterization Lab in the postabsorptive nonsedated state. Informed consent was obtained prior to the procedure. Local anesthetic was given subcutaneously to the left upper chest area with Lidocaine 2%. Incision was made to the left upper chest. ICM Loop Recorder was removed. Steri-strips applied to Lt chest area. The patient tolerated the procedure well. Estimated Blood Loss: 5 ml's IMPLANTED / EX-PLANTED DEVICES DEVICE PARAMETERS CONCLUSIONS / RECOMMENDATIONS PROCEDURE MEDICATIONS Versed 1 mg IV Oxygen: 2 L/min via nasal cannula Signed By Rodo Bang MD On 10/17/2023 11:05:52 Rodo Bang MD
== END 2023-10-17 12:00 | disposition home or self-care (01) ==
LOC: CLSP 08:29
PROVIDERS: PCP Family Medicine Geriatric Medicine; Referring Provider Internal Medicine Cardiovascular Disease; Visit Provider Internal Medicine Cardiovascular Disease
DX: I69.351 Hemiplegia and hemiparesis following cerebral infarction affecting right dominant side (principal); I10 Essential (primary) hypertension; E78.5 Hyperlipidemia, unspecified; Z98.890 Other specified postprocedural states; K21.9 Gastro-esophageal reflux disease without esophagitis
CPT/HCPCS: 33286; 99152; 99153; J7040; A4216

== ENCOUNTER → 2023-11-14 | Outpatient (CLI) | payer MEDICARE, SELFPAY ==
[2023-11-14 16:40] LABS: Absolute Lymphocyte Count 1.74 X10^3/uL (0.83-4.51); Absolute Neutrophil Count 7.4 X10^3/uL (2.0-7.7); Basophil# 0.03 X10^3/uL; Basophil% 0.3 % (0-1); Eosinophil# 0.07 X10^3/uL; Eosinophils% 0.7 % (0-5); Hematocrit 47.6 % (40-54); Hemoglobin 16.1 g/dL (13.0-16.5); Lymphocyte # 1.74 X10^3/ul (0.83-4.51); Lymphocyte % 17.4 % (19-41); Mean Corp Hgb Conc 33.8 g/dL (32-36); Mean Corpuscular Hgb 29.7 pg (27.0-32.0); Mean Corpuscular Volume 87.7 fL (80-94); Mean Platelet Vol. 9.2 fl (6.2-12.0); Monocyte# 0.69 X10^3/uL; Monocyte% 6.9 % (0-10); NRBC Flagged by Analyzer 0 % (0-5); Neutrophil # 7.42 X10^3/uL (2.7-7.7); Neutrophil % 74.4 % (47-70); Platelet Count 297 K/mm3 (150-450); RBC Distribution Width CV 13.2 % (11.6-14.6); RBC Distribution Width SD 42.7 fl (35.1-43.9); Red Blood Count 5.43 M/mm3 (4.6-6.2)
--- OUTSIDE RECORDS SUMMARY | 2023-11-14 16:49 | XMS RPT_ITS | CCD ---
Author Name Unknown Address [address] [place] [address] Organization [facility] Results Test Name Value Interpretation [...] BE BASED ON THE PRIMARY CLINICAL RECORDS. [employer] provides no warranty or guarantee of the accuracy or completeness of information in this document.
[2023-11-14 17:52] LABS: ALB/GLOB Ratio 0.9 RATIO (0.9-2.4); AST(SGOT) 10 U/L (15-37); Alanine Aminotransfer ALT/SGPT 42 U/L (16-61); Albumin, Serum 3.6 g/dL (3.2-5.0); Alkaline Phosphatase 101 U/L (45-117); Anion Gap 5 (5-15); BUN 20 mg/dL (7-18); BUN/Creat Ratio 19.4 RATIO (10-20); Calcium,Total 9.3 mg/dL (8.5-10.1); Chloride 106 mmol/L (98-107); Creatinine, Serum 1.03 mg/dL (0.70-1.30); EST Glomerular Filtration Rate 77 mL/min (>60); Est Glom Filt Rate - Afr Amer 93 mL/min (>60); Glucose 134 mg/dL (74-106); PSA,Total - Annual Screen 5.94 ng/mL (0.00-4.00); Potassium 4.1 mmol/L (3.5-5.1); Protein, Total 7.6 g/dL (6.4-8.2); Sodium Level 138 mmol/L (136-145); Thyroid Stim Hormone (TSH) 0.43 uIU/mL (0.358-3.74)
[2023-11-14 19:24] LABS: Vitamin D,25 Hydroxy 41.1 ng/mL
== END | disposition home or self-care (01) ==
LOC: POLAB3 14:32
PROVIDERS: PCP Family Medicine Geriatric Medicine; Visit Provider Family Medicine Geriatric Medicine
DX: Z12.5 Encounter for screening for malignant neoplasm of prostate (principal); E55.9 Vitamin D deficiency, unspecified; I10 Essential (primary) hypertension
CPT/HCPCS: 36415; 80053; 82306; 84153; 84443; 85025; G0103

== ENCOUNTER → 2023-12-05 | Outpatient (CLI) | payer MEDICARE, SELFPAY ==
[2023-12-05 15:16] LABS: Absolute Neutrophil Count 4.3 X10^3/uL (2.0-7.7); Basophil# 0.05 X10^3/uL; Basophil% 0.8 % (0-1); Eosinophil# 0.02 X10^3/uL; Eosinophils% 0.3 % (0-5); Hematocrit 50.2 % (40-54); Hemoglobin 16.5 g/dL (13.0-16.5); Lymphocyte % 23.1 % (19-41); Mean Corp Hgb Conc 32.9 g/dL (32-36); Mean Corpuscular Hgb 28.9 pg (27.0-32.0); Mean Corpuscular Volume 88.1 fL (80-94); Mean Platelet Vol. 9.5 fl (6.2-12.0); Monocyte# 0.28 X10^3/uL; Monocyte% 4.6 % (0-10); NRBC Flagged by Analyzer 0 % (0-5); Neutrophil # 4.28 X10^3/uL (2.7-7.7); Neutrophil % 70.7 % (47-70); Platelet Count 325 K/mm3 (150-450); RBC Distribution Width CV 13.7 % (11.6-14.6); White Blood Count 6.1 K/mm3 (4.4-11.0)
[2023-12-05 15:37] LABS: ALB/GLOB Ratio 1.1 RATIO (0.9-2.4); AST(SGOT) 25 U/L (15-37); Alanine Aminotransfer ALT/SGPT 41 U/L (16-61); Albumin, Serum 3.9 g/dL (3.2-5.0); Alkaline Phosphatase 63 U/L (45-117); Amylase 54 U/L (25-115); Anion Gap 3 (5-15); BUN 15 mg/dL (7-18); BUN/Creat Ratio 16.4 RATIO (10-20); Chloride 107 mmol/L (98-107); Creatinine, Serum 0.92 mg/dL (0.70-1.30); EST Glomerular Filtration Rate 88 mL/min (>60); Est Glom Filt Rate - Afr Amer 106 mL/min (>60); Globulin 3.6 g/dL (2.2-4.2); Glucose 112 mg/dL (74-106); Lipase 39 U/L (13-75); Protein, Total 7.5 g/dL (6.4-8.2); Sodium Level 139 mmol/L (136-145)
--- OUTSIDE RECORDS SUMMARY | 2023-12-05 22:26 | XMS RPT_ITS | CCD ---
Author Name Unknown Address [address] [place] [address] Organization [facility] Results Test Name Value Interpretation [...] BE BASED ON THE PRIMARY CLINICAL RECORDS. [employer] provides no warranty or guarantee of the accuracy or completeness of information in this document.
[2023-12-07 16:10] LABS: H.Pylori Breath Test Negative (Negative)
== END | disposition home or self-care (01) ==
LOC: POLAB3 13:47
PROVIDERS: PCP Family Medicine Geriatric Medicine; Visit Provider Family Medicine Geriatric Medicine
DX: E78.5 Hyperlipidemia, unspecified (principal); K85.90 Acute pancreatitis without necrosis or infection, unspecified
CPT/HCPCS: 36415; 80053; 82150; 83013; 83690; 85025

== ENCOUNTER → 2023-12-13 | Outpatient (CLI) | payer MEDICARE, SELFPAY ==
--- NOTE | 2023-12-13 08:51 | US_ITS ---
INDICATION: HIATAL HERNIA EXAMINATION: Ultrasound US Abdomen Limited (quadrant) TECHNIQUE: Irwin scale and color doppler imaging was performed of the right upper quadrant. COMPARISON: CT scan of the abdomen and pelvis of 11/08/2022. FINDINGS: LIVER: The liver is somewhat heterogeneous echogenicity measuring about 15 cm in length. The portal vein is patent with normal hepatopedal flow. No focal hepatic lesion. There is no free fluid. GALLBLADDER AND BILIARY TREE: No shadowing gallstone, pericholecystic fluid or gallbladder wall thickening is demonstrated. The gallbladder wall measures about 1.5 mm. The proximal common bile duct measures 4.9 mm, which is within normal limits for the patient''s age. Sonographic Quintanilla''s sign: Negative. PANCREAS: The visualized portions of the pancreas are grossly unremarkable. RIGHT KIDNEY: The right kidney measures 11.4 cm in length. The renal cortex measures 1.3 cm. No evidence of hydronephrosis. US/Abdomen Limited IMPRESSION: No acute sonographic abnormality is demonstrated in the right upper quadrant. Electronically Signed: Rolf Barcenas MD at 14:36 EST ,
--- OUTSIDE RECORDS SUMMARY | 2023-12-13 09:22 | XMS RPT_ITS | CCD ---
Author Name Unknown Address [address] [place] [address] Organization [facility] Results Test Name Value Interpretation [...] BE BASED ON THE PRIMARY CLINICAL RECORDS. [employer] provides no warranty or guarantee of the accuracy or completeness of information in this document.
== END | disposition home or self-care (01) ==
PROVIDERS: PCP Family Medicine Geriatric Medicine; Referring Provider Family Medicine Geriatric Medicine; Visit Provider Family Medicine Geriatric Medicine
DX: K44.9 Diaphragmatic hernia without obstruction or gangrene (principal); K57.32 Diverticulitis of large intestine without perforation or abscess without bleeding
CPT/HCPCS: 76705

== ENCOUNTER → 2023-12-16 | Outpatient (CLI) | payer MEDICARE, SELFPAY ==
--- NOTE | 2023-12-16 14:53 | CT_ITS ---
INDICATION: HIATAL HERNIA. Epigastric pain. EXAMINATION: CT ABDOMEN AND PELVIS WITH CONTRAST - CT Abdomen And Pelvis W/ Contrast Injection TECHNIQUE: Helically acquired images were obtained of the abdomen and pelvis following IV contrast. A radiation dose optimization technique was used for this scan. IV Contrast dosage and agent: 100 mL Isovue-300 Oral contrast: Redicat oral contrast. COMPARISON: November 08, 2022. FINDINGS: LOWER CHEST: Lung bases are clear. No cardiomegaly or pericardial effusion. Partially seen moderate left anterior descending and circumflex calcified coronary atherosclerosis. LIVER: Homogeneous. No focal mass. GALLBLADDER AND BILIARY TREE: No calcified gallstones. No gallbladder distension or wall edema. No intra- or extrahepatic biliary ductal dilation. PANCREAS: No focal cystic or solid mass. SPLEEN: Normal size without focal cystic or solid mass. ADRENAL GLANDS: No nodules. KIDNEYS AND URETERS: Subcentimeter anterior right lower lobe hypodensity which is to small to further characterize but stable from October 12, 2022 compatible with cyst, no specific imaging follow-up required. Normal renal size and position. No hydronephrosis. Minimal bilateral senescent chronic perinephric stranding. Bilateral retroperitoneal lipomatosis. PERITONEUM: No ascites or free air. No other fluid collection. BOWEL: Minimal hiatal hernia. No acute gastric finding. No small bowel distention or focal wall thickening. Prior appendectomy. Moderate to large colonic stool burden cecum to inferior descending colon. Distal colonic diverticulosis without focal inflamed diverticulum to suggest diverticulitis. . LYMPH NODES: No enlarged mesenteric or retroperitoneal lymph nodes. VESSELS: Aortic atherosclerosis without ectasia. URINARY BLADDER: Unremarkable. REPRODUCTIVE ORGANS: Large prostate with prior transurethral resection prostate. ABDOMINAL WALL: Small fat-containing umbilical hernia without inflammation. No discrete abdominal or pelvic wall hernia. BONES: No lytic or blastic abnormality. Diffuse lumbar spondylosis with moderate to severe facet arthropathy at L3-4 causing mild grade 1 anterolisthesis. Small posterior disc protrusion also most prominent at L3-4. Together findings cause moderate to severe L3-4 spinal canal stenosis and moderate neural foraminal narrowing. CT/Abdomen/Pelvis W IV Cont ONLY IMPRESSION: Minimal hiatal hernia. Moderate to large colonic stool burden. Distal colonic diverticulosis without evidence of diverticulitis Retroperitoneal and pelvic lipomatosis. Fat-containing umbilical hernia without inflammation. Large prostate with prior transurethral resection of prostate Electronically Signed: Albert Shukla MD at 9:25 EST ,
--- OUTSIDE RECORDS SUMMARY | 2023-12-16 16:16 | XMS RPT_ITS | CCD ---
Author Name Unknown Address [address] [place] [address] Organization [facility] Results Test Name Value Interpretation [...] BE BASED ON THE PRIMARY CLINICAL RECORDS. [employer] provides no warranty or guarantee of the accuracy or completeness of information in this document.
== END | disposition home or self-care (01) ==
PROVIDERS: PCP Family Medicine Geriatric Medicine; Referring Provider Family Medicine Geriatric Medicine; Visit Provider Family Medicine Geriatric Medicine
DX: K44.9 Diaphragmatic hernia without obstruction or gangrene (principal); R10.9 Unspecified abdominal pain
CPT/HCPCS: 74177; Q9967

== ENCOUNTER → 2024-01-25 | Outpatient (CLI) | payer MEDICARE, SELFPAY ==
--- NOTE | 2024-01-25 18:30 | STRESSREP ---
Stress Test Report Exercise myocardial perfusion stress test. 68-year-old male with a history of chest pain Stress protocol: Resting EKG demonstrates normal sinus rhythm with a rate of 65 bpm resting blood pressure is 138/84 mmHg. The patient exercised according to the regular Lam protocol for a total duration of 6 minutes attaining a maximum heart rate of 136 bpm which was 88% of maximum predicted heart rate; the maximum workload was 7 metabolic equivalents. At rest there were no ST or T wave changes noted to suggest ischemia and at peak exercise upsloping ST changes only were noted which did not meet the criteria for ischemia. No clinical angina was noted the test was terminated due to the target heart rate being achieved/fatigue. The peak blood pressure was 164/80 mmHg. Rate-pressure product was 22,500. Myocardial perfusion protocol. 12 mCi of technetium 99m sestamibi was injected at rest. The patient exercised according to regular Lam protocol for total duration of 6 minutes and at peak exercise 34.1 mCi of technetium 99m sestamibi was injected stress images were obtained stress and rest images were reconstructed in comparing the short axis vertical long and horizontal long axis. Gated images were also obtained. Perfusion SPECT analysis: Review of the stress images demonstrate normal uptake of tracer noted in all areas of the myocardium. The resting images similarly demonstrate normal uptake of tracer noted in all areas of the myocardium. No areas of reversibility are noted to suggest ischemia no previous infarct was noted. Gated SPECT analysis: The gated ejection fraction is 60%. Conclusion: Normal exercise myocardial perfusion stress test at a moderate workload Preserved ejection fraction.
== END | disposition home or self-care (01) ==
PROVIDERS: PCP Family Medicine Geriatric Medicine; Referring Provider Family Medicine Geriatric Medicine; Visit Provider Family Medicine Geriatric Medicine
DX: I25.10 Atherosclerotic heart disease of native coronary artery without angina pectoris (principal)
CPT/HCPCS: 78452; 93017; A9500; A4216

== ENCOUNTER → 2024-01-31 | Outpatient (CLI) | payer MEDICARE, SELFPAY ==
[2024-02-01 14:10] LABS: PSA, Free % 22.3 % (.)
== END | disposition home or self-care (01) ==
LOC: LAB 12:50
PROVIDERS: PCP Family Medicine Geriatric Medicine; Referring Provider Urology; Visit Provider Urology
DX: R97.20 Elevated prostate specific antigen [PSA] (principal)
CPT/HCPCS: 36415; 84153; 84154

== ENCOUNTER → 2024-05-15 | Outpatient (CLI) | payer MEDICARE, SELFPAY ==
--- NOTE | 2024-05-15 16:25 | RAD_ITS ---
EXAM: XR LUMBOSACRAL SPINE, 4 OR 5 VIEWS CLINICAL INDICATION: RIGHT SIDE SCIATICA RIGHT SIDE SCIATICA TECHNIQUE: Frontal, lateral and bilateral oblique views of the lumbar spine. COMPARISON: X-ray L-spine 06/17/2021. The skin abdomen and pelvis 11/17/2023. FINDINGS: VERTEBRAE: There is multilevel spondylosis. There is chronic grade 1 anterolisthesis at the L2-3 and L3-4 levels, on a chronic degenerative basis. Multilevel degenerative changes of facet joints. Preserved vertebral body height. No fracture. Preservation of the normal lumbar lordosis. DISC SPACES: There is multilevel disc space narrowing. There is bone across the L5-S1 disc space, consistent with degenerative autofusion. GASTROINTESTINAL TRACT: Unremarkable as visualized. Included bowel gas pattern is non-obstructive. RAD/L/S Spine Min 4 Views IMPRESSION: Chronic degenerative changes, as above. Electronically Signed: Donal Valenzuela MD at 5:24 EDT Reading Location ID and State: [facility] / [place] , Service support ,
== END | disposition home or self-care (01) ==
LOC: RAD 16:22
PROVIDERS: PCP Family Medicine Geriatric Medicine; Referring Provider Family Medicine Geriatric Medicine; Visit Provider Family Medicine Geriatric Medicine
DX: M54.31 Sciatica, right side (principal)
CPT/HCPCS: 72110

== ENCOUNTER → 2024-05-15 | Outpatient (CLI) | payer MEDICARE, SELFPAY ==
[2024-05-15 15:46] LABS: Absolute Neutrophil Count 5.4 X10^3/uL (2.0-7.7); Basophil# 0.05 X10^3/uL; Basophil% 0.6 % (0-1); Eosinophil# 0.06 X10^3/uL; Eosinophils% 0.8 % (0-5); Hemoglobin 16.8 g/dL (13.0-16.5); Lymphocyte % 23.1 % (19-41); Mean Corp Hgb Conc 33.6 g/dL (32-36); Mean Corpuscular Hgb 29.1 pg (27.0-32.0); Mean Corpuscular Volume 86.7 fL (80-94); Mean Platelet Vol. 9.2 fl (6.2-12.0); Monocyte# 0.41 X10^3/uL; Monocyte% 5.3 % (0-10); NRBC Flagged by Analyzer 0 % (0-5); Neutrophil # 5.43 X10^3/uL (2.7-7.7); Neutrophil % 69.8 % (47-70); Platelet Count 261 K/mm3 (150-450); RBC Distribution Width SD 40.8 fl (35.1-43.9); Red Blood Count 5.77 M/mm3 (4.6-6.2); White Blood Count 7.8 K/mm3 (4.4-11.0)
[2024-05-15 16:19] LABS: Vitamin D,25 Hydroxy 57.2 ng/mL
[2024-05-15 16:20] LABS: Mucous, Urine 0 SEEN /hpf (<or=2+)
[2024-05-15 16:28] LABS: AST(SGOT) 20 U/L (15-37); Alanine Aminotransfer ALT/SGPT 37 U/L (16-61); Albumin, Serum 3.8 g/dL (3.2-5.0); Alkaline Phosphatase 65 U/L (45-117); Anion Gap 8 (5-15); BUN 14 mg/dL (7-18); BUN/Creat Ratio 15.1 RATIO (10-20); Chloride 106 mmol/L (98-107); Cholesterol 105 mg/dL (200); Creatinine, Serum 0.93 mg/dL (0.70-1.30); EST Glomerular Filtration Rate 86 mL/min (>60); Est Glom Filt Rate - Afr Amer 105 mL/min (>60); Globulin 3.7 g/dL (2.2-4.2); Glucose 103 mg/dL (74-106); High Density Lipoprotein 38 mg/dL; Potassium 3.5 mmol/L (3.5-5.1); Protein, Total 7.5 g/dL (6.4-8.2); Sodium Level 138 mmol/L (136-145); Thyroid Stim Hormone (TSH) 0.67 uIU/mL (0.358-3.74); Triglycerides 112 mg/dL; Very Low Density Lipoprotein 22 mg/dL (5-40)
[2024-05-15 16:34] LABS: Color, Urine Red (Yellow); Glucose, Dipstick Normal (Normal); Ketone-Dipstick 15 mg/dl (Negative); Leukocyte Esterase-Dipstick Negative /ul (Negative); Nitrite-Dipstick Negative (Negative); Occult Blood-Urine 250 /ul (Negative); Protein-Dipstick 500 mg/dl (Negative); Specific Gravity, Urine 1.015 (1.002-1.030); Urine Bilirubin Dipstick Negative (Negative); Urine Clarity Turbid (Clear); Urine Urobilinogen Normal (Normal); Urine pH 6.5 (5.0 - 8.0)
[2024-05-15 16:43] LABS: Bacteria 2+ /hpf (None Seen); Red Blood Cells-Urine > 100 SEEN /hpf (0-5); Squamous Epithelial Cells - UA 0-5 SEEN /hpf (0-5); White Blood Cells 50-100 SEEN /hpf (0-5)
[2024-05-15 16:44] LABS: Renal Epithelial Cells 0-5 SEEN /hpf (0-5)
== END | disposition home or self-care (01) ==
LOC: POLAB3 15:07
PROVIDERS: PCP Family Medicine Geriatric Medicine; Visit Provider Family Medicine Geriatric Medicine
DX: I10 Essential (primary) hypertension (principal); E78.5 Hyperlipidemia, unspecified; E55.9 Vitamin D deficiency, unspecified; R31.9 Hematuria, unspecified
CPT/HCPCS: 36415; 80053; 80061; 81001; 82306; 84443; 85025; 87086

== ENCOUNTER → 2024-05-21 | Outpatient (CLI) | payer MEDICARE, SELFPAY ==
[2024-05-21 11:45] LABS: PSA,Total- Diagnostic 4.77 ng/mL (0.0-4.0)
== END | disposition home or self-care (01) ==
LOC: LAB 11:08
PROVIDERS: PCP Family Medicine Geriatric Medicine; Referring Provider Urology; Visit Provider Urology
DX: R97.20 Elevated prostate specific antigen [PSA] (principal)
CPT/HCPCS: 36415; 84153

== ENCOUNTER → 2024-05-31 | Outpatient (CLI) | payer MEDICARE, SELFPAY ==
--- NOTE | 2024-05-31 06:51 | CT_ITS ---
STUDY: CT ABDOMEN AND PELVIS WITH AND WITHOUT CONTRAST REASON FOR EXAM: Male, 68 years old. 3 episodes of gross hematuria. RADIATION DOSAGE (If Supplied By Facility): CTDIvol = ( 20.64 ) mGy, DLP = ( 3279.86 ) mGycm TECHNIQUE: Transaxial images were obtained from the dome of the diaphragm to the symphysis pubis without oral contrast. IV 100mL Isovue-370 was administered. Sagittal and coronal images were reconstructed. Individualized dose optimization techniques were used for this CT. COMPARISON: Comparison is made with prior study dated December 16, 2023. FINDINGS: Mild degree of increased markings at the lung bases suggestive of scarring. Coronary artery calcification. There is decreased attenuation of the liver consistent with steatosis. Normal gallbladder and extrahepatic biliary system. Normal spleen. Normal pancreas. Normal bilateral adrenal glands. Normal right kidney. Normal left kidney. Nonspecific bilateral perinephric stranding. There is a small hiatal hernia. Normal small intestine. There are multiple colonic diverticula consistent with diverticulosis. The patient is status post appendectomy. There is scattered atherosclerotic calcification of the abdominal aorta, without a demonstrated aneurysm. Normal inferior vena cava. Normal retroperitoneum. Diffuse bladder wall thickening. Questionable polypoid lesion along the left side of the base of the bladder. There is heterogeneous enlargement of the prostate. The prostate measures 5.3 cm x 5.6 cm. This causes indentation of the bladder base worse on the left side. There is a small umbilical hernia containing fat. Loss of the normal lumbar lordosis. Moderate degree of disc space narrowing at the L5-S1 level. CT/CT Abd/Pelvis W/WO Contrast IMPRESSION: Heterogeneous enlargement of the prostate with indentation of the bladder base worse on the left side. Questionable polypoid lesion within the left base of the bladder. Endoscopy recommended for further evaluation. Electronically Signed: Robert Thompson MD at 15:43 EDT ,
== END | disposition home or self-care (01) ==
LOC: CT 06:49
PROVIDERS: PCP Family Medicine Geriatric Medicine; Referring Provider Urology; Visit Provider Urology
DX: R31.0 Gross hematuria (principal)
CPT/HCPCS: 74178; Q9967

== ENCOUNTER → 2024-06-26 | Outpatient (CLI) | payer MEDICARE, SELFPAY | END | disposition home or self-care (01) | LOC: POLAB3 11:46 | PROVIDERS: PCP Family Medicine Geriatric Medicine; Visit Provider Family Medicine Geriatric Medicine | DX: L03.116 Cellulitis of left lower limb (principal); B95.62 Methicillin resistant Staphylococcus aureus infection as the cause of diseases classified elsewhere | CPT/HCPCS: 36415; 87070; 87075; 87077; 87186; 87205 ==

== ENCOUNTER → 2024-07-09 | Outpatient (CLI) | payer MEDICARE, SELFPAY ==
--- NOTE | 2024-07-09 11:12 | MRI_ITS ---
STUDY: MRI LUMBAR SPINE WITHOUT CONTRAST REASON FOR EXAM: Male, 68 years old. LOW BACK PAIN TECHNIQUE: Standardized fat and water weighted pulse sequences were obtained in the sagittal and axial planes. COMPARISON: CT abdomen and pelvis with and without contrast 05/31/2024. FINDINGS: T11-T12 and T12-L1: (Sagittal only). Normal endplates. Normal disc height, hydration and morphology. Normal central canal and bilateral intervertebral neural foramina. Mild straightening of the lumbar spine curvature. No abnormal focal signal abnormalities of the osseous elements of the lumbar spine ovoid benign red marrow to yellow marrow fat infiltration in the posterior upper T11 vertebral body. There is no substantial scoliosis. Normal conus medullaris that terminates at the lower L1 vertebral body level. L1-2: Normal endplates. Minimal disc space height narrowing. Mild ventral extradural defect due to posterior bulging annulus. No significant facet arthropathy. Normal central canal and bilateral lateral recesses. Normal bilateral intervertebral neuroforamina. L2-3: Normal endplates. Minimal disc space height narrowing. Mild degenerative anterolisthesis of L2 on L3. Mild asymmetric degenerative facet arthropathy, right greater than left. Moderate central canal stenosis with an AP canal diameter of 7 mm. Mild dorsal epidural lipomatosis. Normal bilateral lateral recesses. Normal bilateral intervertebral neuroforamina. L3-4: Normal endplates. Mild disc space height narrowing. Mild asymmetric degenerative anterolisthesis of L3 on L4, left side greater than right. Moderate bilateral degenerative facet arthropathy, left greater than right. Prominent posterior ligamenta flava hypertrophy. Mild dorsal epidural lipomatosis. Pronounced central canal stenosis with an AP canal diameter of 4 mm. Mild stenosis of the left lateral recess. Normal right lateral recess. Normal bilateral intervertebral neuroforamina. L4-5: Normal endplates. Mild disc space height narrowing. Mild ventral extradural defect due to posterior bulging annulus. Mild bilateral degenerative facet arthropathy. Mild dorsal epidural lipomatosis. Moderate central canal stenosis with an AP canal diameter 7 mm. Normal bilateral lateral recesses. Normal bilateral intervertebral neuroforamina. L5-S1: Normal endplates. Pronounced disc space height narrowing. Prominent ventral epidural fat. Normal central canal with the termination of the thecal sac at the upper S1 body level surrounded by epidural lipomatosis. Normal facet joints. Normal bilateral lateral recesses. Normal bilateral intervertebral neuroforamina. Normal visualized sacral ala. Normal visualized paraspinous soft tissue structures. MRI/Spine Lumbar (Routine) IMPRESSION: 1. Pronounced central canal stenosis at L3-L4 disc space level with an AP canal diameter of 4 mm secondary to posterior ligamenta flava hypertrophy, prominent dorsal epidural lipomatosis, developmentally short pedicles and mild asymmetric degenerative anterolisthesis of L3 on L4. 2. Moderate central canal stenosis at L2-L3 disc space level with an AP canal diameter 7 mm and mild degenerative anterolisthesis of L2 on L3. 3. Moderate central canal stenosis at L4-L5 disc space level with an AP canal diameter 7 mm and mild posterior bulging annulus. 4. No MRI evidence of lumbar extruded disc fragment or lumbar disc protrusion. Electronically Signed: J Carlos Cyr MD at 12:34 EDT ,
== END | disposition home or self-care (01) ==
LOC: MRI 11:06
PROVIDERS: PCP Family Medicine Geriatric Medicine; Referring Provider Family Medicine Geriatric Medicine; Visit Provider Family Medicine Geriatric Medicine
DX: M54.50 Low back pain, unspecified (principal)
CPT/HCPCS: 72148

== ENCOUNTER 2024-07-27 09:00 | Outpatient (RCR) | payer MEDICARE, SELFPAY | END 2024-07-27 19:00 | disposition home or self-care (01) | LOC: PT 09:00 | PROVIDERS: PCP Family Medicine Geriatric Medicine; Referring Provider Family Medicine Geriatric Medicine; Visit Provider Family Medicine Geriatric Medicine | DX: M54.31 Sciatica, right side (principal) | CPT/HCPCS: 97014; 97035; 97110; 97162; 97530; G0283 ==

== ENCOUNTER → 2024-08-22 | Outpatient (CLI) | payer MEDICARE, SELFPAY ==
[2024-08-22 11:12] LABS: Absolute Lymphocyte Count 1.54 X10^3/uL (0.83-4.51); Absolute Neutrophil Count 8.4 X10^3/uL (2.0-7.7); Basophil# 0.07 X10^3/uL; Basophil% 0.6 % (0-1); Eosinophil# 0.12 X10^3/uL; Eosinophils% 1.1 % (0-5); Hematocrit 49.9 % (40-54); Hemoglobin 16.6 g/dL (13.0-16.5); Lymphocyte # 1.54 X10^3/ul (0.83-4.51); Mean Corp Hgb Conc 33.3 g/dL (32-36); Mean Corpuscular Hgb 29.9 pg (27.0-32.0); Mean Corpuscular Volume 89.9 fL (80-94); Mean Platelet Vol. 8.8 fl (6.2-12.0); Monocyte# 0.75 X10^3/uL; Monocyte% 6.8 % (0-10); NRBC Flagged by Analyzer 0 % (0-5); Neutrophil % 76.5 % (47-70); Platelet Count 340 K/mm3 (150-450); RBC Distribution Width CV 13.4 % (11.6-14.6); RBC Distribution Width SD 45.1 fl (35.1-43.9); Red Blood Count 5.55 M/mm3 (4.6-6.2)
[2024-08-22 11:18] LABS: Prothrombin Time (Protime)PT. 13.4 SECONDS (11.7-14.9)
[2024-08-22 11:27] LABS: ALB/GLOB Ratio 0.9 RATIO (0.9-2.4); AST(SGOT) 15 U/L (15-37); Alanine Aminotransfer ALT/SGPT 28 U/L (16-61); Albumin, Serum 3.5 g/dL (3.2-5.0); Alkaline Phosphatase 70 U/L (45-117); Anion Gap 7 (5-15); BUN 16 mg/dL (7-18); BUN/Creat Ratio 21.2 RATIO (10-20); Calcium,Total 9.5 mg/dL (8.5-10.1); Chloride 104 mmol/L (98-107); Creatinine, Serum 0.75 mg/dL (0.70-1.30); EST Glomerular Filtration Rate 110 mL/min (>60); Est Glom Filt Rate - Afr Amer 133 mL/min (>60); Globulin 3.7 g/dL (2.2-4.2); Glucose 96 mg/dL (74-106); Potassium 3.9 mmol/L (3.5-5.1); Protein, Total 7.2 g/dL (6.4-8.2); Sodium Level 136 mmol/L (136-145)
== END | disposition home or self-care (01) ==
LOC: LAB 10:22
PROVIDERS: PCP Family Medicine Geriatric Medicine; Referring Provider Family Medicine Geriatric Medicine; Visit Provider Family Medicine Geriatric Medicine
DX: Z01.818 Encounter for other preprocedural examination (principal); I10 Essential (primary) hypertension
CPT/HCPCS: 36415; 80053; 85025; 85610

== ENCOUNTER 2024-09-11 12:04 | Inpatient (IN) | payer MEDICARE, SELFPAY ==
[2024-09-04 09:28] LABS: Magnesium 2.2 mg/dL (1.6-2.6)
[2024-09-04 10:22] LABS: HIV - WCH Non-Reactive (Nonreactive); Hepatitis B Surface Antibody Non-Reactive; Hepatitis C Antibody Non-Reactive (Nonreactive)
[2024-09-05 06:10] LABS: Hepatitis A AB, Total Negative (Negative)
[2024-09-11] VITALS (15 sets, daily range): BP systolic 130–163; BP diastolic 79–99; PULSE 73–113; RESP 16–22; TEMP 36.2–36.9; O2SAT 93–99; BMI 33.7; BMI 33.8
[2024-09-11] MEDS: Lactated Ringers 1,000 ML 15 ML IV (06:41)
[2024-09-11] MEDS: Magnesium 1 GM over 15 mins IV (06:42)
[2024-09-11] MEDS: Acetaminophen 500 MG Tablet 1000 MG PO ×3 (06:57→22:38)
--- NOTE | 2024-09-11 07:29 | HP.PCM_ITS ---
History and Physical Date of Admission: 09/11/24 MR#: [id number] Acct: [id number] Name: ESPERANZA DAVISON Rep #: [id number] : 1955 Provider: Dr. Ramone Lam MD Age/Sex: 68/M Location[place] [facility] Status: Signed Intake Vital Signs 08/03/2409:20 Height 5 ft 5 in Weight: 204 lb BMI 33.9 Intake Visit Reasons: lumbar spine Chief Complaint: lumbar spine Accompanied by: Daughter Is patient in pain?: Yes Pain scale (1-10): 5 Allergies No Known Allergies Allergy (Verified 08/23/24 11:28) Medications ?Medication ?Instructions ?Recorded ?Confirmed ?Type clopidogrel 75 mg tablet 75 mg PO DAILY 09/25/19 08/23/24 History lisinopril 20 mg tablet 20 mg PO DAILY 09/26/19 08/23/24 History famotidine 40 mg tablet 40 mg PO DAILY PRN GERD 09/15/21 08/23/24 History rosuvastatin 10 mg tablet 10 mg PO QHS 09/15/21 08/23/24 History gabapentin 300 mg capsule 300 mg PO TID 08/23/24 08/23/24 History Have you fallen in the past year?: No PFSH Medical History Wears glasses High cholesterol Hypertension Stroke/cerebrovascular accident Gastric reflux Non-smoker History of echocardiogram Cardiology follow-up encounter Preop cardiovascular exam History of CVA (cerebrovascular accident) (08/07/19) Right hemiparesis Vascular dementia Essential hypertension Hyperlipidemia History of stroke Shoulder pain Right shoulder strain Surgical History History of colonoscopy H/O transurethral resection of prostate (10/06/21) Hx of appendectomy History of back surgery History of loop recorder (10/08/19) Family History Brother Heart disease atrial fibMother Heart disease atrial fibOther Hypertension Social History Smoking Status: Never smoker alcohol intake: never substance use type: does not use caffeine: Yes Type: coffee Number of servings: 1 HPI lumbar spine Details: This documentation accurately reflects the service provided and the decisions made by me, Dr. Ramone Lam MD 08/23/24 1124. Part of today?s visit was documented by Ruba ALEJO , acting as scribe. ESPERANZA DAVISON is a 68 year old M here today for Pre-op. Patient is having a 360 Lumbar Fusion L3-4 and L4-5 dos 09/11/2024. HPI from 08/03/24: ESPERANZA DAVISON is a 68 year old M here today for lumbar spine pain. Pt. presents using a cane and advises that his low back pain began the beginning of May 2024 and has progressively gotten worse. He states his pain extends from his low back into his right glute, down his lateral and posterior right leg to the top of his foot and increases with walking. He will at times get a heaviness to the left foot but his main concern is his right leg pain. He had a low back injury resulting in discectomy of L5/S1 in 1990 @ in [place] and says that it was beneficial for a time, he does not know what his symptoms were at that time. He has done PT, and one injection from Dr. Díaz 2 weeks ago which was not helpful. He is taking a 30 day supply of gabapentin and is unsure if it is helping. He has seen the chiropractor as well for 6 weeks with no benefit. He has recent lumbar Xrays and MRI. He takes Plavix after a stroke in 2018. Says that the stroke caused a right lateral visual disturbance but has not had any extremity residual weakness. Says that his bilateral hands have had some cramping but denies any dexterity issues. Ortho Exam General General: Yes no acute distress Neurologic: Yes alert and Yes oriented x3 Spine SPINE TESTING CERVICAL THORACIC LUMBAR Musculoskeletal Strength 0=absent - 5=normal Details: Neurological exam of the lower extremities shows 4 power of the right ankle dorsiflexion with partial foot drop and 5 power across all other muscle groups, exam of the upper extremities shows 5x5 power. Normal sensations across all dermatomes. Brisk knee reflexes. No clonus. No midline or paraspinal tenderness. Rylan's negative. Romberg's negative. Pain with extension. Coding Level of Care Code Off vis,est,level 4 Diagnoses Right foot drop M21.371 Spinal stenosis of lumbar region with neurogenic claudication M48.062 Spondylolisthesis, lumbar region M43.16 Time Spent (min) 35 Assessment and Plan Assessment and Plan (1) Right foot drop: Status: Acute (2) Spinal stenosis of lumbar region with neurogenic claudication: Status: Acute (3) Spondylolisthesis, lumbar region: Status: Acute Plan Again reviewed prior imaging. Imaging shows L5-S1 autofusion which correlates to the discectomy in 1990 at that level, L2-3, L3-4 and L4-5 anterolisthesis with instability. MRI shows pronounced central canal stenosis at L3-L4, moderate central canal stenosis at L2-L3, moderate central canal stenosis at L4-L5. Screening imaging on MRI also shows a C5-7 disc bulge with spinal cord compression. No cervical MRI. Patient is here today for L3-5 fusion preop. Reviewed the benefits and risks of surgery. Risks of surgery include bleeding, infection, visceral injury, ileus, hardware failure, pseudoarthrosis, adjacent segment degeneration, pneumonia, DVT, pulmonary embolism, atelectasis, gait abnormality, persistent pain, stretch injuries, chance for future surgeries. Patient understands and agrees to proceed with surgery. Explained in detail the procedure of the lumbar fusion. Discussed post surgery restrictions such as no bending, lifting, or twisting. Answered all questions that he had today in preparation for surgery. Consent was signed. Patient is in agreement.
--- NOTE | 2024-09-11 07:31 | PCM.PRE.AN2 ---
ASA Classification* ASA Classification ASA Classification: 3 Assessment & Plan Anesthesia* Anesthesia Assessment Anesthesia Assessment: Discussed sedation and/or anesthesia options, risks, benefits, and alternatives with patient/parents/legal guardian/POA. Questions invited. The patient/parents/legal guardian/POA seems to understand and agrees to proceed with anesthesia plan. Reviewed the physical assessment, medical history, allergy history and patient home medications list prior to surgery/procedure/anesthetic and documented any changes. Performed airway and anesthesia risk assessments. Anesthesia Type Anesthesia Type: General Anesthesia Focused Assessment* Temperature: 98.1 F Pulse Rate: 73 Blood Pressure: 148/86 Respiratory Rate: 16 Pulse Ox: 95 Airway Assessment Mouth opens: >3 cm Mallampati Score: II Focused Labs Anesthesia Preop lab: CBC WBC 11.0 K/mm3 (4.4-11.0) 08/22/24 10:29 RBC 5.55 M/mm3 (4.6-6.2) 08/22/24 10:29 Hgb 16.6 g/dL (13.0-16.5) H 08/22/24 10:29 Hct 49.9 % (40-54) 08/22/24 10:29 Plt Count 340 K/mm3 (150-450) 08/22/24 10:29 CHEMISTRY Potassium 3.9 mmol/L (3.5-5.1) 08/22/24 10:29 Sodium 136 mmol/L (136-145) 08/22/24 10:29 Magnesium 2.2 mg/dL (1.6-2.6) 09/04/24 08:57 BUN 16 mg/dL (7-18) 08/22/24 10:29 Creatinine 0.75 mg/dL (0.70-1.30) 08/22/24 10:29 Glucose 96 mg/dL (74-106) 08/22/24 10:29 TSH 0.67 uIU/mL (0.358-3.74) 05/15/24 15:08 COAG PT 13.4 SECONDS (11.7-14.9) 08/22/24 10:29 Pre-Assessment Diagnosis/Proposed Procedure Planned Operative Procedure(s): 360 LUMBAR FUSION L3-4 L4-5 Anesthesia History Anesthesia History - binder technician: Anesthesia History - binder technician Hx Hospitalization No 08/28/24 11:23 Any Problems With Anesthesia No 08/28/24 11:23 Cholinesterase deficiency No 08/28/24 11:23 You/Your Family Experience No 08/28/24 11:23 fever (hyperthermia) with Relationship Recent Exposure to Contagious No 09/11/24 06:48 Disease Does patient have nerve No 08/28/24 11:23 stimulator Patient instructed to have device shut off --Does patient have Pacemaker No 09/11/24 06:48 or ICD? When Was Last Pacemaker Check QUESTION #4 FULL TEXT: You/Your Family Experience fever (hyperthermia) with Anesthesia Last Oral Intake Last Oral intake: Last Oral Intake NPO since 03:30 09/11/24 06:48 Meds taken in AM with sips of No 09/11/24 06:48 water? Meds patient instructed to take am of surgery PONV PONV - binder technician: PONV - binder technician Female No 08/28/24 11:23 HX of Motion Sickness No 08/28/24 11:23 HX of N/V After Surgery No 08/28/24 11:23 Non-Smoker Yes 08/28/24 11:23 Duration of Surgery greater Yes 08/28/24 11:23 than 60 minutes Number of Risk Factors 2 08/28/24 11:23 PONV Score Moderate Risk 08/28/24 11:23 Height & Weight Height & Weight: Anesthesia: Height & Weight Height 5 ft 5 in 09/11/24 06:48 Weight: 92 kg 09/11/24 06:48 Body Mass Index (BMI) 33.7 09/11/24 06:48 Respiratory Assessment Respiratory Assessment - binder technician: Respiratory Tract Infection Hx - binder technician Hx Respiratory Tract Infection No 08/28/24 11:23 STOP Sleep Apnea STOP Sleep Apnea - binder technician: STOP Sleep Apnea - binder technician Hx Hypertension Yes: CONTROLLED WITH MED 08/28/24 11:23 Hx Sleep Apnea No 08/28/24 11:23 CPAP BIPAP Do you snore loudly (louder No 08/28/24 11:23 than talking or can be heard Do you often feel tired/ No 08/28/24 11:23 fatigued/ sleepy during daytime? Has anyone observed you stop No 08/28/24 11:23 breathing during sleep? STOP Results Negative 08/28/24 11:23 QUESTION #5 FULL TEXT : Do you snore loudly (louder than talking or can be heard through closed doors)? Tobacco Use History Tobacco Use History - binder technician: Tobacco Use History - binder technician Tobacco Use Smoking Status Never smoker 08/28/24 11:23 Hx Tobacco Use No 08/28/24 11:23 Years Smoking Packs Smoked per Day Smoking Cessation Date was within the last 15 years Hx Smoking Cessation Date Hx Smoking Cessation Counseling Hematologic Medial History Hematologic Hx - binder technician: Hematologic Medical Hx - training and documentation specialist Hx of Blood Transfusion No 08/28/24 11:23 Hx of Transfusion in last 3 No 08/28/24 11:23 Months Date of Last Transfusion (if within last 3 months) Ever experience any problems No 08/28/24 11:23 with transfusion(s)? Specify any problems Hx of Preganancy in last 3 N/A 08/28/24 11:23 Months Nurse Filling Out Transfusion DSCHRIBER 08/28/24 11:23 & Questions: Date: 08/28/24 08/28/24 11:23 Time: 11:08/28/24 11:23 Patient unable to answer at this time (ie. confused, unrespo /Reproduction History /Reproductive History - binder technician: /Reproductive Hx- binder technician Hx Now No 08/28/24 11:23 Gestational Age (in weeks): EDC: Hx Hx Para Hx Section SAB No 08/28/24 11:23 Active Medications Active Medications: Current Medications Generic Name Dose Route Start Last Admin Trade Name Freq PRN Reason Stop Dose Admin Acetaminophen 1,000 mg 09/11/24 08:00 09/11/24 06:57 Acetaminophen 500 Mg Tablet PO 09/11/24 08:01 1,000 mg X1 ONE Administration Cefazolin Sodium 2 gm/ N/A 20 mls @ 400 mls/hr 09/11/24 08:00 IV 09/11/24 08:02 PREOP ONE Tranexamic Acid 1,000 mg/ 110 mls @ 660 mls/hr 09/11/24 08:00 Sodium Chloride IV 09/11/24 08:09 X1 ONE Tranexamic Acid 1,000 mg/ 110 mls @ 660 mls/hr 09/11/24 08:00 Sodium Chloride IV 09/11/24 08:09 X1 ONE Magnesium Sulfate 1 gm/ 102 mls @ 408 mls/hr 09/11/24 08:00 09/11/24 06:42 Dextrose IV 09/11/24 08:14 408 mls/hr X1 ONE Administration Lactated Ringer's 1,000 mls @ 15 mls/hr 09/11/24 06:15 09/11/24 06:41 IV 09/16/24 19:34 15 mls/hr .Q48H TIANA Administration Protocol Insulin Human Lispro 1 - 6 unit 09/11/24 08:00 Insulin Lispro 100 Unit/Ml Insuln.Pen SC 09/11/24 18:00 Q4H PRN PRN BG>/= 180, SEE PROTOCOL Protocol PFSH Medical History Prostate disease Back pain History of hiatal hernia Shortness of breath on exertion History of pain when walking History of stress test Wears glasses High cholesterol Hypertension Stroke/cerebrovascular accident Gastric reflux Non-smoker History of echocardiogram Cardiology follow-up encounter History of CVA (cerebrovascular accident) (08/07/19) Vascular dementia Essential hypertension Hyperlipidemia History of stroke Home Medications ?Medication ?Instructions ?Recorded ?Last Taken ?Type clopidogrel 75 mg tablet 75 mg PO DAILY HEART 09/25/19 09/03/24 History lisinopril 20 mg tablet 20 mg PO DAILY BP 09/26/19 09/10/24 History famotidine 40 mg tablet 40 mg PO DAILY PRN GERD 09/15/21 10/06/21 05:00 History rosuvastatin 10 mg tablet 10 mg PO QHS CHOLESTEROL 09/15/21 09/10/24 History gabapentin 300 mg capsule 300 mg PO TID PAIN 08/23/24 09/10/24 History finasteride 5 mg tablet 5 mg PO 1200 BLADDER 08/28/24 09/10/24 History Allergy/AdvReac Type Severity Reaction Status Date / Time No Known Allergies Allergy Verified 09/11/24 06:40 Family History Brother Heart disease atrial fib Mother Heart disease atrial fib Other Hypertension Surgical History History of colonoscopy H/O transurethral resection of prostate Hx of appendectomy History of back surgery History of loop recorder (10/08/19) Social History Smoking Status: Never smoker alcohol intake: never substance use type: does not use caffeine: Yes Type: coffee Number of servings: 1 Review of Systems (Anesthesia) ROS Narrative System reviewed and no additional complaints, except as documented.
[2024-09-11 07:51] LABS: Bedside Glucose 101 mg/dL (74-106)
[2024-09-11] MEDS: Cefazolin 2 GM in Syringe IV ×3 (08:00→23:12)
--- NOTE | 2024-09-11 08:05 | RAD_ITS ---
EXAM: FL FLUOROSCOPY < 1 HOUR CLINICAL INDICATION: 360 LUMBAR FUSION L3-L4 L4-L5 TECHNIQUE: Fluoroscopic images performed in multiple projections. Fluoroscopic guidance was provided by a physician. Fluoroscopic time is 9.5 seconds and dose is 52.47 mGy. COMPARISON: No relevant prior studies available. FINDINGS AND RAD/Lumbar Spine 2 or 3 Views IMPRESSION: Intraoperative fluoroscopic images. Refer to the operative note for complete details. Electronically Signed: Rivera Alfonso DO at 22:54 EST ,
[2024-09-11] MEDS: TXA 1000mg in NS100 100ml (IVPB at Incision) 660 MG IV (08:15)
[2024-09-11] MEDS: TXA 1000mg in NS100 100ml (IVPB at Closure) 660 MG IV (11:30)
--- NOTE | 2024-09-11 11:42 | PCM.OPRPT ---
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, neurogenic claudication, right foot drop Post-Operative Diagnosis: Same Select all DRAINS/GRAFTS/IMPLANTS that apply: Graft Graft details: Allograft cancellous bone chips, autologous bone marrow aspirate from iliac crest through separate incision and Implanted device Implanted device details: DePuy cougar lateral lumbar interbody cage, screw with washer Type of Anesthesia: General Estimated Blood Loss: 100 cc Specimen collected: No Description of surgery: Preoperative diagnosis: L3-4 spondylolisthesis, L3-5 disc degeneration with stenosis, neurogenic claudication, right foot drop Postoperative diagnosis: Same Name of procedures L3-5 oblique lumbar interbody fusion (OLIF), minimally invasive left sided approach, lateral decubitus: ? L3-4 anterolateral spinal fusion 66221 ? L4-5 anterolateral fusion 61495/51 ? L3-4 insertion of cage 50310 ? L4-5 insertion of cage 58755/51 ? Bone graft aspirate left iliac crest separate incision ? Allograft cancellous chips Attending Surgeon: Dr. Ramone Lam Estimated blood loss: 100 mL Anesthesia: General Complications: None Indications: Patient is a 68-year-old pleasant gentleman who has had a long history of low back pain and right lower extremity radiation, difficulty walking distances, right foot weakness. Xrays & MRI revealed L3-4 spondylolisthesis, L3-5 disc degeneration with stenosis. After undergoing a prolonged period of nonoperative treatment, the patient elected to undergo surgical decompression & fusion. All surgical options were discussed with the patient including anterior and posterior approaches. All risks and benefits associated with the procedure were explained to the patient. The risks include but are not limited to infection, bleeding, injury to nerves and vessels including major vessels like IVC and aorta, persistent paresthesia, persistent pain, dural tear, need for further procedures, adjacent segment degeneration, pseudoarthrosis, hardware failure, retrograde ejaculation, paralytic ileus, etc. Procedure: The patient was identified in the preoperative holding suite using Unique patient identifiers. Skin was marked, consent was reviewed, and all questions were answered. The patient was then brought back to the operative room. A surgical timeout was performed to make sure correct procedure was being done on the correct patient and all operative room staff were on the same page. General endotracheal anesthesia was then given to the patient. Castorena catheter was inserted. The patient was then carefully positioned in right lateral decubitus position with the left side up on a regular OR table. Axillary roll was placed and all bony prominences were well- padded. Hip positioners were placed in the posterior buttocks and anterior sternal area. The surgical area was prepped and draped in usual fashion. Preoperative antibiotic was injected IV as preoperative antibiotic. A final timeout was then again done just before starting the procedure. A 2 inch incision oblique was taken in the left lower quadrant of the abdomen 2 fingerbreadths away from the iliac crest and the lower ribs. Sharp dissection with Bovie was carried out up to the fascia covering the external oblique. The external oblique, internal oblique and transversus abdominis muscles were split along the muscle fibers and retroperitoneal space was entered. Sponge sticks were utilized to move the bowel and peritoneum slv-er-cke-way and psoas muscle was exposed staying within the retroperitoneal plane. World Blender retractor system was positioned and the retractor blade was applied onto the psoas. The interval between psoas and midline structures was developed and appropriate retractors were placed. Once adequate interval was cleared, a disc space was identified and a marker x-ray was taken. This identified the L4-5 disc level. The prepsoas interval was then traced superiorly to expose the L3-4 disc as well. Annulotomy was done with a long handled knife starting at L4-5. Pituitary was used to remove disc material. Curettes were used to prepare the endplates. Disc space spreaders were utilized to distract and increase the disc height. Near complete discectomy was performed. Trials of serially increasing sizes were used. A Jamshidi needle was used to aspirate bone marrow from the left anterior iliac crest through a separate incision and this aspirate was mixed with the allograft bone chips. A Depuy [place] cage of size of the 18 x 50 x 14 mm with 15 degrees lordosis was packed with corticocancellous allograft bone chips mixed with bone marrow aspirate. This was inserted into the L4-5 disc space. The retractors were then repositioned to expose the L3-4 disc and the procedure was repeated with complete discectomy and endplate preparation. Smaller disc distractors were also used to bluntly perform a contralateral annulotomy at both levels. Cage size was 18 x 50 x 14 mm at L3-4. AP and lateral C-arm pictures were taken to confirm good position of the cage. Some bone chips were also packed around the cages. Screw with washer was placed into the lower L3 body with a washer partially covering the cage at L3-4. Hemostasis was confirmed. The retractor blades were removed. Closure was done in layers with a continuous strand of # 1 Vicryl in all muscle layers. 2-0 Vicryl was used for subcutaneous tissue and 4-0 for Monocryl for the skin. Steri-Strips were applied and 4 x 4 gauze and Tegaderm were applied. Commercial Sales Consultant Melva Tomlinson PA-C. My physician dental ceramist assistant was a vital part of this case. They were important in appropriate retraction during the case, and protection of soft tissues during the procedure. Their intimate knowledge of the case and my steps aided in safe and expedient completion of the procedure as well as appropriate position of the patient during the surgery. They were also vital in assisting with closure under my direct supervision. Surgical Findings: See operative note Rodbuster act english tutor: Yes Maritime Pilot: Melva Tomlinson Tasks completed by first crusher: Closing, Hemostasis: Electrocautery and Retracting Complications Complications: No Procedures Musculoskeletal [id number]: Other Procedure See Report
[2024-09-11] MEDS: Ropivacaine 0.5% 30 ML Vial (11:50)
--- NOTE | 2024-09-11 11:50 | OP.PCM_ITS ---
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, neurogenic claudication, right foot drop Post-Operative Diagnosis: Same Select all DRAINS/GRAFTS/IMPLANTS that apply: Graft Graft details: Allograft cancellous bone chips, autologous bone marrow aspirate from iliac crest and Implanted device Implanted device details: DePuy Viper prime pedicle screw instrumentation Type of Anesthesia: General Estimated Blood Loss: 100 cc Specimen collected: No Description of surgery: Preoperative diagnosis: L3-4 spondylolisthesis, L3-5 disc degeneration, stenosis with neurogenic claudication, right foot drop Postoperative diagnosis: Same Name of procedures: L3-5 posterior percutaneous pedicle screw instrumented fusion, prone: ? L3-4 posterior spinal fusion 78490 ? L3-5 posterior pedicle screw instrumentation 92783 ? L4-5 posterior fusion 91310/51 ? Allograft cancellous chips 89179 Attending Surgeon: Dr. Ramone aLm Estimated blood loss: 100 mL (total for entire case) Anesthesia: General Complications: None Description of procedure: After the anterior procedure was complete, the patient was then turned supine. The patient was then transferred to Slade table in prone position. Back was prepped and draped in usual fashion. C-arm AP view was then taken. C-arm was positioned in a way that L3 was centralized and superior endplate of was parallel to the beam. Spinous process was centered between the pedicles. Midline was marked with skin marker and lateral borders of the pedicles were also marked. Skin marker was also utilized to conner transversely across the middle of the pedicles at L3. 2 transverse paramedian incisions of 1 inch were placed. The fascia was incised vertically. Finger dissection was utilized to palpate the transverse process and facet joint. Viper Prime screws with towers were inserted and docked onto the transverse processes. This was then slowly moved medially to reach the superior articular process of L3. This was then confirmed on C-arm and then a mallet was utilized to drive the trocar into the pedicle going up to the medial wall of the pedicle on AP view. This was performed both sides. C-arm lateral view confirmed that the tip of the trocar was in the vertebral body, and the screw was advanced into the pedicle and vertebral body. This was repeated similarly at L4 and L5 bilaterally. Screw sizes were 7 x 50 mm at L3, L4 and L5 on both sides. 75 mm precontoured titanium 5.5 mm lordotic annabelle on the right and 80 mm on the left were then passed through the screw extensions and reduced down to the screws with the help of Depuy Viper instrumentation system on both sides. AP and lateral view of the C-arm showed good positioning of the screws and cages. Final tightening with the torque screwdriver was then completed. Mary D was utilized to roughen the facet joint at L3-4 and L4-5 on the right side. Cancellous allograft bone chips mixed with bone marrow aspirate were then placed over this decorticated area. Hemostasis was achieved. Closure was done in layers with 0 Vicryls for the fascia, 2-0 Vicryls for the subcutaneous tissue, and Monocryl for the skin. Dermabond was applied. Dressings were applied covered with Tegaderm. The patient was then turned supine onto a hospital bed. The patient was extubated and taken to PACU in stable condition. The patient tolerated the procedure well and no complications occurred. Depuy [place] cage & Viper Prime minimally invasive pedicle screw instrumentation system was utilized in this case. No dural tear was identified intraoperatively. I was present for the entirety of the case and performed the surgery. Knurling Machine Operator Melva Tomlinson PA-C. My physician offset assistant press operator was a vital part of this case. They were important in appropriate retraction during the case, and protection of soft tissues during the procedure. Their intimate knowledge of the case and my steps aided in safe and expedient completion of the procedure as well as appropriate position of the patient during the surgery. They were also vital in assisting with closure under my direct supervision. Surgical Findings: See operative note Paintless Dent Repair Technician brewery cellar worker: Yes Windows Mobile Developer: Melva Tomlinson Tasks completed by electrician station assistant: Closing, Implanting device and Retracting Complications Complications: No Procedures Musculoskeletal [id number]: Other Procedure See Report
--- NOTE | 2024-09-11 12:16 | PCM.POST.ANE ---
Anesthesia: Postop Eval I Current Vital Signs Temperature: 97.2 F Pulse Rate: 83 Blood Pressure: 143/98 Respiratory Rate: 22 Pulse Ox: 99 Oxygen Delivery Method: Simple Mask Oxygen Flow Rate (L/min): 6 Assessment Airway patent: Yes Spontaneous unlabored respirations: Yes Mental status: Awake nausea: No Vomiting: No Anesthesia Complication: No Fluid Hydration Crystalloid volume administer (ml): 1,500 Total IV fluid infused: 1,500 Progress Note Anesthesia document: Postop Eval 1 completed: Yes
[2024-09-11] MEDS: Gabapentin 300 MG Capsule PO ×2 (14:33→23:05)
[2024-09-11] MEDS: Methocarbamol 500 MG Tablet 1000 MG PO ×3 (14:34→22:38)
--- NOTE | 2024-09-11 16:46 | POSTOPAN2_ITS ---
Anesthesia Postop Eval I Sum Postop Eval Completion status Anesthesia document: Postop Eval 1 completed: Yes Anesthesia Postop Eval I Summary Anesthesia Postop Eval I Summary: Anesthesia Postop Eval I: Assessment Summary Airway patent Yes 09/11/24 12:18 [email or web address] Spontaneous unlabored Yes 09/11/24 12:18 [email or web address] respirations Mental status Awake 09/11/24 12:18 [email or web address] nausea No 09/11/24 12:18 [email or web address] [email or web address] Vomiting No 09/11/24 12:18 [email or web address] Anesthesia Postop Eval I: Fluid Summary Crystalloid volume administer 1,500 09/11/24 12:18 [email or web address] (ml) Colloids volume administered ( ml) Blood Product volume administered (ml) Total IV fluid infused 1,500 09/11/24 12:18 [email or web address] Anesthesia Postop Eval I: Summary Notes Anesthesia Complication No 09/11/24 12:18 [email or web address] Anesthesia Complication Comment: Post-operative progress note Anesthesia: Postop Eval II Evaluation Mental status: Awake and Calm Pain Level: 2 nausea: No Vomiting: No Complications Anesthesia Complication: No
--- NOTE | 2024-09-11 16:46 | PCM.POSTANE2 ---
Anesthesia Postop Eval I Sum Postop Eval Completion status Anesthesia document: Postop Eval 1 completed: Yes Anesthesia Postop Eval I Summary Anesthesia Postop Eval I Summary: Anesthesia Postop Eval I: Assessment Summary Airway patent Yes 09/11/24 12:18 [email or web address] Spontaneous unlabored Yes 09/11/24 12:18 TANK [email or web address] respirations Mental status Awake 09/11/24 12:18 [email or web address] nausea No 09/11/24 12:18 TANK [email or web address] Vomiting No 09/11/24 12:18 [email or web address] Anesthesia Postop Eval I: Fluid Summary Crystalloid volume administer 1,500 09/11/24 12:18 [email or web address] (ml) Colloids volume administered ( ml) Blood Product volume administered (ml) Total IV fluid infused 1,500 09/11/24 12:18 TANK [email or web address] Anesthesia Postop Eval I: Summary Notes Anesthesia Complication No 09/11/24 12:18 [email or web address] Anesthesia Complication Comment: Post-operative progress note Anesthesia: Postop Eval II Evaluation Mental status: Awake and Calm Pain Level: 2 nausea: No Vomiting: No Complications Anesthesia Complication: No
[2024-09-11] MEDS: Ensure Surgery 237 ML LIQUID PO (18:19)
[2024-09-11] MEDS: oxyCODONE 5 MG Tablet PO (18:19)
[2024-09-11] MEDS: Senna/Docusate Sodium 1 Tablet 2 TABLET PO (18:20)
[2024-09-11] MEDS: Famotidine 20 MG Tablet 40 MG PO (19:57)
--- NOTE | 2024-09-11 21:20 | PCM.PN.HOSP ---
Reason for Visit Reason for Visit: Diagnoses Encounter for other preprocedural examination (09/11/24) Subjective Subjective 68-year-old male history of CVA 2019, hypertension, GERD, BPH who presented [facility] 09/11/2024 for L3-L5 spinal fusion. Hospitalist consulted for postop medical management. Patient evaluated at bedside. Patient feeling well, was up and moving around and felt good overall. He has a little bit of indigestion but otherwise denies any complaints. Has not moved his bowels yet and got a stool softener, no nausea, no overt abdominal pain. Objective Data Objective Data Vital Signs: Vital Signs Temp Pulse Resp BP Pulse Ox O2 Del Method O2 Flow Rate 98.5 F 110 H 18 145/95 H 97 Room Air 4 09/11/24 18:13 09/11/24 18:13 09/11/24 18:13 09/11/24 18:13 09/11/24 18:13 09/11/24 18:13 09/11/24 13:15 Oxygen Flow Rate (L/min) 4 Oxygen Delivery Method Room Air Weight: 92 kg Body Mass Index (BMI) 33.7 Intake & Output: Intake and Output for Last 24 Hours 09/09/24 09/10/24 09/11/24 23:59 23:59 23:59 Intake Total 1862 / 1862 Output Total 250 / 250 Balance 1612 / 1612 Lab / Micro Data Labs: Laboratory Results - last 24 hr 09/11/24 06:46: POC Glucose 101 Micro: Microbiology 09/04/24 08:59 Swab (Method) Nasal Screen MRSA/MSSA - Final Physical Exam Narrative General: Alert, oriented, no apparent distress HEENT: Atraumatic, normocephalic Eyes: Anicteric, normal conjunctiva, extraocular movements grossly intact Neck: Supple Respiratory: Clear to auscultation bilaterally, normal respiratory effort Cardiovascular: Regular rate GI: Soft, nontender, nondistended Extremities: No edema Musculoskeletal: Moving all extremities Neuro: No overt focal neurological deficits Skin: No rashes appreciated Psych: Cooperative Assessment & Plan Assessment/Plan (1) Spinal stenosis of lumbar region with neurogenic claudication: PLAN: Plan # History of CVA 2018 -Continue Plavix when okay to do so per primary team, continue statin #Hypertension -Resume home medications #Chronic BPH with obstruction -Patient is status post TURP in 2020 -Continue home finasteride # Low back pain -Status post lumbar fusion 09/11/2024 -Management per primary #GERD -Continue home prn famotidine #DVT ppx: Per primary Lenora Monte MD Time spent in the patient's overall evaluation, decision-making process, review of diagnostic data, adjustment of management, discussion with other providers, nursing and ancillary staff involved in patient's care documentation, 15 Minutes Charges/Coding Visit Charges Office Visits / Consults: 13344 OV L2 Est 10min
[2024-09-11] MEDS: Atorvastatin Calcium 20 MG Tablet PO (22:38)
[2024-09-11] MEDS: Lisinopril 20 MG Tablet PO (23:05)
[2024-09-11] MEDS: Calcium Carbonate 500 MG Tablet 1000 MG PO (23:05)
[2024-09-12 01:55] VITALS: BP 127/75; PULSE 95; RESP 16; TEMP 36.7; O2SAT 94
[2024-09-12 02:00] VITALS: BMI 33.8
[2024-09-12] MEDS: Ketorolac 15 MG/ML Vial IV (02:03)
[2024-09-12] MEDS: Acetaminophen 500 MG Tablet 1000 MG PO ×3 (05:52→21:48)
[2024-09-12] MEDS: Gabapentin 300 MG Capsule PO ×3 (05:52→21:51)
[2024-09-12 06:13] VITALS: BP 142/57; PULSE 81; RESP 16; TEMP 36.6; O2SAT 96; BMI 33.8
--- NOTE | 2024-09-12 07:00 | RAD_ITS ---
INDICATION: please do upright AP and LAT EXAMINATION/TECHNIQUE: X-RAY - XR Spine Lumbar 2 or 3 Views COMPARISON: Prior study dated: 05/15/2024 FINDINGS: Surgical hardware posterior vertical bars and pedicle screws with interbody devices L3-L5, new compared to prior. No subluxation. The vertebral bodies are normal in height. No definite fracture demonstrated. Disc space narrowing with osteophytes at L2-3 and L5-S1. No paravertebral soft tissue mass identified. Aortic calcifications noted. RAD/Lumbar Spine 2 or 3 Views IMPRESSION: Postsurgical changes with hardware in place. No subluxation. Electronically Signed: Angeles Doll MD at 6:31 EST ,
[2024-09-12 07:40] LABS: Hematocrit 43.8 % (40-54); Hemoglobin 14.3 g/dL (13.0-16.5); Mean Corp Hgb Conc 32.6 g/dL (32-36); Mean Platelet Vol. 9.5 fl (6.2-12.0); Platelet Count 242 K/mm3 (150-450); RBC Distribution Width CV 13.7 % (11.6-14.6); RBC Distribution Width SD 46.5 fl (35.1-43.9); Red Blood Count 4.76 M/mm3 (4.6-6.2); White Blood Count 12.9 K/mm3 (4.4-11.0)
[2024-09-12 08:20] LABS: Anion Gap 6 (5-15); BUN 15 mg/dL (7-18); BUN/Creat Ratio 20.3 RATIO (10-20); Calcium,Total 9.1 mg/dL (8.5-10.1); Chloride 109 mmol/L (98-107); Creatinine, Serum 0.74 mg/dL (0.70-1.30); EST Glomerular Filtration Rate 113 mL/min (>60); Est Glom Filt Rate - Afr Amer 136 mL/min (>60); Estimated Creatinine Clearance 94.68 ml/min; Glucose 133 mg/dL (74-106); Potassium 4.3 mmol/L (3.5-5.1); Sodium Level 137 mmol/L (136-145)
[2024-09-12 08:25] VITALS: O2SAT 93
--- NOTE | 2024-09-12 09:02 | CASEMGMT ---
FANY DOMINGUEZ Assessment: Face to Face with pt for initial transition planning/care coordination assessment. FANY DOMINGUEZ introduced self and role at [facility], pt voices understanding and consents to assessment. Pt is A&O x4 and answers all questions appropriately at this time. Pt sitting up in bed in no distress. Care providers, pharmacy, and demographics verified/updated. Admitting Dx: Lumbar fusion Strata Score: 2 PCP:Jose Specialists:[facility]; roscoe Holliday Preferred Pharmacy: [facility] Insurance: [employer] [facility] Prescription Benefit: yes LNOK: Nolan Eubanks, son; Berna Rogelio, dtr Living Arrangements: Pt lives with 2 adult children in a single story with 2 steps to enter. Pt reports prior to surgery he was I in ADLs and denies concerns at home. Transportation: Pt drives self and denies concerns with transportation. Pt family will transport pt until he can drive again. DME:jose PATTEN HHC/SNF: Denies hx of Pt states no concerns with going home at time of dc. Discussed pt being up in chairs for meals and ambulating the halls as per board. Discussed using IS and pickle. Pt instructed on how to use. Pt verbalized understanding. Pt states no further concerns/needs. CM to follow. Advised pt to ask CM if any further question/concerns/needs arise, voices understanding. Pt Goal: Home Plan: Home Iesha SOARES CM
[2024-09-12 10:13] VITALS: BMI 33.8
[2024-09-12] MEDS: Senna/Docusate Sodium 1 Tablet 2 TABLET PO ×2 (10:49→21:48)
[2024-09-12] MEDS: Meloxicam 15 MG Tablet PO (10:50)
[2024-09-12] MEDS: Methocarbamol 500 MG Tablet 1000 MG PO ×4 (10:51→21:48)
[2024-09-12] MEDS: Lisinopril 20 MG Tablet PO (10:52)
[2024-09-12] MEDS: Bisacodyl 5 MG Tablet 10 MG PO (10:55)
[2024-09-12] MEDS: Ensure Surgery 237 ML LIQUID PO ×3 (10:56→18:46)
[2024-09-12 10:57] VITALS: BP 136/88; PULSE 96; RESP 12; TEMP 36.8; O2SAT 95
--- NOTE | 2024-09-12 13:01 | PCM.PN.ORT ---
Subjective Subjective POD 1 L3-[address] Lam. Patient is doing well with his pain well managed. He has walked with therapy with a FWW and safe for home discharge. No flatus. Says that his right sided leg pain he was having prior to surgery has resolved. Objective Data Objective Data Vital Signs: Vital Signs Temp Pulse Resp BP Pulse Ox O2 Del Method O2 Flow Rate 98.2 F 96 12 136/88 H 95 Room Air 2 09/12/24 10:57 09/12/24 10:57 09/12/24 10:57 09/12/24 10:57 09/12/24 10:57 09/12/24 10:57 09/12/24 01:55 Oxygen Flow Rate (L/min) 2 Oxygen Delivery Method Room Air Weight: 202 lb 13.204 oz Body Mass Index (BMI) 33.7 Intake & Output: Intake and Output for Last 24 Hours 09/10/24 09/11/24 09/12/24 23:59 23:59 23:59 Intake Total 1882 / 2182 300 / 300 Output Total 250 / 250 Balance 1632 / 1932 300 / 300 Lab / Micro Data 09/12/24 05:23 09/12/24 05:23 Labs: Laboratory Results - last 24 hr 09/12/24 05:23: WBC 12.9 H, RBC 4.76, Hgb 14.3, Hct 43.8, MCV 92.0, MCH 30.0, MCHC 32.6, RDW Std Deviation 46.5 H, RDW Coeff of Breonna 13.7, Plt Count 242, MPV 9.5, Sodium 137, Potassium 4.3, Chloride 109 H, Carbon Dioxide 23.0, Anion Gap 6, BUN 15, Creatinine 0.74, Estim Creat Clear Calc 94.68, Est GFR (MDRD) Af Amer 136, Est GFR (MDRD) Non-Af 113, BUN/Creatinine Ratio 20.3 H, Glucose 133 H, Calcium 9.1 Micro: Microbiology 09/04/24 08:59 Swab (Method) Nasal Screen MRSA/MSSA - Final Radiography Diagnostic Testing: Radiology Impression Lumbar Spine X-Ray 09/11/24 08:05 IMPRESSION: Intraoperative fluoroscopic images. Refer to the operative note for complete details. Electronically Signed: Rivera Alfonso DO at 22:54 EST , Lumbar Spine X-Ray 09/12/24 07:00 IMPRESSION: Postsurgical changes with hardware in place. No subluxation. Electronically Signed: Angeles Doll MD at 6:31 EST , Physical Exam Narrative Neurological exam of the lower extremities shows 4+ power right dorsiflexion, all other muscle groups shows 5 power. Normal sensations across all dermatomes. Tegaderm and gauze dry and intact over belly and back incision. Const alert, oriented x3 and no apparent distress Assessment & Plan Assessment/Plan (1) Status post lumbar spinal fusion: PLAN: Plan POD 1 L3-5 fusion. Therapy cleared. No flatus. Dulcolax x1. Encouraged patient to pass flatus by increasing movement and drinking coffee. After he passes flatus he will need to tolerate a solid meal before being sent home. Pain well managed with current regimen. Patient is in agreement.
[2024-09-12] MEDS: Finasteride 5 MG Tablet PO (13:09)
[2024-09-12 14:13] VITALS: BMI 33.8
[2024-09-12] MEDS: Bisacodyl 10 MG Suppository RC (14:42)
--- NOTE | 2024-09-12 17:19 | PCM.PN.HOSP ---
Reason for Visit Reason for Visit: Diagnoses Spinal stenosis, lumbar region with neurogenic claudication (09/11/24) Encounter for other preprocedural examination (09/11/24) Arthrodesis status (09/11/24) Objective Data Objective Data Vital Signs: Vital Signs Temp Pulse Resp BP Pulse Ox O2 Del Method O2 Flow Rate 98.2 F 96 12 136/88 H 95 Room Air 2 09/12/24 10:57 09/12/24 10:57 09/12/24 10:57 09/12/24 10:57 09/12/24 10:57 09/12/24 10:57 09/12/24 01:55 Oxygen Flow Rate (L/min) 2 Oxygen Delivery Method Room Air Weight: 202 lb 13.204 oz Body Mass Index (BMI) 33.7 Intake & Output: Intake and Output for Last 24 Hours 09/10/24 09/11/24 09/12/24 23:59 23:59 23:59 Intake Total 1882 / 2182 1100 / 1100 Output Total 250 / 250 Balance 1632 / 1932 1100 / 1100 Lab / Micro Data 09/12/24 05:23 09/12/24 05:23 Labs: Laboratory Results - last 24 hr 09/12/24 05:23: WBC 12.9 H, RBC 4.76, Hgb 14.3, Hct 43.8, MCV 92.0, MCH 30.0, MCHC 32.6, RDW Std Deviation 46.5 H, RDW Coeff of Breonna 13.7, Plt Count 242, MPV 9.5, Sodium 137, Potassium 4.3, Chloride 109 H, Carbon Dioxide 23.0, Anion Gap 6, BUN 15, Creatinine 0.74, Estim Creat Clear Calc 94.68, Est GFR (MDRD) Af Amer 136, Est GFR (MDRD) Non-Af 113, BUN/Creatinine Ratio 20.3 H, Glucose 133 H, Calcium 9.1 Micro: Microbiology 09/04/24 08:59 Swab (Method) Nasal Screen MRSA/MSSA - Final Radiography Diagnostic Testing: Radiology Impression Lumbar Spine X-Ray 09/11/24 08:05 IMPRESSION: Intraoperative fluoroscopic images. Refer to the operative note for complete details. Electronically Signed: Rivera Alfonso DO at 22:54 EST , Lumbar Spine X-Ray 09/12/24 07:00 IMPRESSION: Postsurgical changes with hardware in place. No subluxation. Electronically Signed: Angeles Doll MD at 6:31 EST , Physical Exam Narrative Seen and examined. Patient passing flatus but has not moved bowel but has a large fortification. No fever. No chest pain or shortness of breath. Symptoms of lower back radiation pain to left buttock and thigh, sciatica pain has resolved Physical exam General: Alert, Oriented x3, Cooperative HEENT: Atraumatic, PERRLA, EOMI, Normocephalic Oral: No Gingival or Mucosal Lesions/ Ulcerations Neck: Supple, No JVD, Negative Carotid Bruits Chest wall/Lungs: Air entry diminished in bilateral lung bases. No crepitation/rhonchi Cardiovascular: Regular rate, Regular Rhythm, Normal S1, Normal S2, No M/G/R Abdomen: Bowel Sounds Present, Soft, Non Tender, Non-Distended : No dysuria. No renal angle tenderness. No suprapubic tenderness. Extremities: No edema, Capillary Refill Less than 3 Seconds Skin: Surgical dressing over back and left lateral abdominal wall is dry. Musculoskeletal: No Tenderness to Palpation of Joints or Extremities Neurological: Cranial nerves II-XII grossly intact, DTR 2+/4. No acute focal neurological deficit. Psych/Mental Status: Normal Affect, Appropriate. Assessment & Plan Assessment/Plan (1) Spinal stenosis of lumbar region with neurogenic claudication: PLAN: Plan # History of CVA 2017 -Continue Plavix when okay to do so per primary team, continue statin 09/12: No chest pain or shortness of breath. Patient is doing well. Denies history of smoking #Hypertension -Resume home medications 09/12: Blood pressure is well-controlled. #Chronic BPH with obstruction -Patient is status post TURP in 2020 -Continue home finasteride # Low back pain -Status post lumbar fusion 09/11/2024 -Management per primary #GERD -Continue home prn famotidine #DVT ppx: Per primary Charges/Coding Visit Charges Inpatient E&M: 11309 Subs Hosp L2
[2024-09-12 18:13] VITALS: BMI 33.8
[2024-09-12 21:42] VITALS: BP 151/98; PULSE 84; RESP 18; TEMP 36.9; O2SAT 94
[2024-09-12] MEDS: Atorvastatin Calcium 20 MG Tablet PO (21:48)
[2024-09-13 05:00] VITALS: BP 124/69; PULSE 88; RESP 16; TEMP 36.7; O2SAT 95
[2024-09-13] MEDS: oxyCODONE 5 MG Tablet PO (05:24)
[2024-09-13] MEDS: Acetaminophen 500 MG Tablet 1000 MG PO (05:24)
[2024-09-13] MEDS: Gabapentin 300 MG Capsule PO (05:24)
[2024-09-13] MEDS: Senna/Docusate Sodium 1 Tablet 2 TABLET PO (08:05)
[2024-09-13] MEDS: Ensure Surgery 237 ML LIQUID PO (08:05)
[2024-09-13] MEDS: Methocarbamol 500 MG Tablet 1000 MG PO (08:05)
[2024-09-13] MEDS: Meloxicam 15 MG Tablet PO (08:06)
[2024-09-13] MEDS: Lisinopril 20 MG Tablet PO (08:06)
[2024-09-13 09:01] VITALS: BP 137/73; PULSE 93; RESP 16; TEMP 36.6; O2SAT 94
--- NOTE | 2024-09-13 09:49 | CASEMGMT ---
Pt seen ambulating indep in halls with walker. Pt has dc order in. Pt to dc today.
--- NOTE | 2024-09-13 10:14 | CASEMGMT ---
Social Work SW met with pt to discuss advance directives.? Pt confirms he has completed a living will and health care POA naming his son Nolan Eubanks.? Pt notified that documents are not on file at [facility] and SW requested they be brought in for scanning into the EMR.? Pt expressing some hesitation and misunderstanding of difference between living will and DNR. SW explained the differences and provided written information. SW recommended that pt consider information provided and if he does not want a living will to reach out to the corporate associate attorney who completed it and ask for it to be revoked. Pt appreciative of education and will consider his wishes. STEVIE Ford
--- NOTE | 2024-09-13 15:58 | PCM.PN.HOSP ---
Reason for Visit Reason for Visit: Diagnoses Spinal stenosis, lumbar region with neurogenic claudication (09/11/24) Encounter for other preprocedural examination (09/11/24) Arthrodesis status (09/11/24) Objective Data Objective Data Vital Signs: Vital Signs Temp Pulse Resp BP Pulse Ox O2 Del Method O2 Flow Rate 98 F 93 16 137/73 H 94 Room Air 2 09/13/24 09:01 09/13/24 09:01 09/13/24 09:01 09/13/24 09:01 09/13/24 09:01 09/13/24 09:01 09/12/24 01:55 Oxygen Flow Rate (L/min) 2 Oxygen Delivery Method Room Air Weight: 202 lb 13.204 oz Body Mass Index (BMI) 33.7 Intake & Output: Intake and Output for Last 24 Hours 09/11/24 09/12/24 09/13/24 23:59 23:59 23:59 Intake Total 1882 / 2182 2086.5 / 2086.5 Output Total 250 / 250 Balance 1632 / 1932 2086.5 / 2086.5 Lab / Micro Data 09/12/24 05:23 09/12/24 05:23 Micro: Microbiology 09/04/24 08:59 Swab (Method) Nasal Screen MRSA/MSSA - Final Physical Exam Narrative Seen and examined. Patient is doing well in the morning. Heart rate irregular in 80s. Blood pressure normal. Did not had BM Patient passing flatus. Physical exam General: Alert, Oriented x3, Cooperative HEENT: Atraumatic, PERRLA, EOMI, Normocephalic Oral: No Gingival or Mucosal Lesions/ Ulcerations Neck: Supple, No JVD, Negative Carotid Bruits Chest wall/Lungs: Air entry diminished in bilateral lung bases. No crepitation/rhonchi Cardiovascular: Regular rate, Regular Rhythm, Normal S1, Normal S2, No M/G/R Abdomen: Bowel Sounds Present, Soft, Non Tender, Non-Distended : No dysuria. No renal angle tenderness. No suprapubic tenderness. Extremities: No edema, Capillary Refill Less than 3 Seconds Skin: Surgical dressing over back and left lateral abdominal wall is dry. Musculoskeletal: No Tenderness to Palpation of Joints or Extremities Neurological: Cranial nerves II-XII grossly intact, DTR 2+/4. No acute focal neurological deficit. Psych/Mental Status: Normal Affect, Appropriate. Assessment & Plan Assessment/Plan (1) Spinal stenosis of lumbar region with neurogenic claudication: PLAN: Plan # History of CVA 2017 -Continue Plavix when okay to do so per primary team, continue statin 09/12: No chest pain or shortness of breath. Patient is doing well. Denies history of smoking 09/13: No acute issues. Patient on a stool softener, senna S. Discharged on the same by orthopedic surgeon #Hypertension -Resume home medications 09/12: Blood pressure is well-controlled. #Chronic BPH with obstruction -Patient is status post TURP in 2020 -Continue home finasteride # Low back pain -Status post lumbar fusion 09/11/2024 -Management per primary #GERD -Continue home prn famotidine #DVT ppx: Per primary Patient medically stable for discharge Charges/Coding Visit Charges Inpatient E&M: 93625 Subs Hosp L2
== END 2024-09-13 12:33 | disposition home or self-care (01) | DRG 427 ==
LOC: MS3 09-12 07:53
PROVIDERS: Anesthesiology; Student in an Organized Health Care Education/Training Program; Admitting Provider Orthopaedic Surgery Orthopaedic Surgery of the Spine; PCP Family Medicine Geriatric Medicine; Referring Provider Orthopaedic Surgery Orthopaedic Surgery of the Spine; Visit Provider Orthopaedic Surgery Orthopaedic Surgery of the Spine
PROC: 0SG10A0 Fusion of 2 or more Lumbar Vertebral Joints with Interbody Fusion Device, Anterior Approach, Anterior Column, Open Approach (ICD-10-PCS; principal; 2024-09-11 07:30)
DX: M43.16 Spondylolisthesis, lumbar region (principal); N13.8 Other obstructive and reflux uropathy; I10 Essential (primary) hypertension; E78.5 Hyperlipidemia, unspecified; M48.062 Spinal stenosis, lumbar region with neurogenic claudication; K21.9 Gastro-esophageal reflux disease without esophagitis; M50.220 Other cervical disc displacement, mid-cervical region, unspecified level; M21.371 Foot drop, right foot; Z86.73 Personal history of transient ischemic attack (TIA), and cerebral infarction without residual deficits; N40.1 Benign prostatic hyperplasia with lower urinary tract symptoms
CPT/HCPCS: 36415; 72100; 76000; 80048; 82962; 83735; 85027; 86703; 86706; 86708; 86803; 86850; 86900; 86901; 87077; 87081; 94668; 97162; 97166; 97530; 97535; 99252; A4648; C1713; G0463; J2405; J3475

== ENCOUNTER → 2024-09-25 | Outpatient (CLI) | payer MEDICARE, SELFPAY ==
--- NOTE | 2024-09-25 10:33 | VDLE_ITS ---
Reason For Study: Swelling RIGHT LEFT CFV is compressible, spontaneous, phasic, GSV is normal. competent and demonstrates normal CFV is compressible, spontaneous, phasic, augmentation. competent, and demonstrates normal Procedure augmentation. This is a venous duplex using B-mode, color FV is compressible, spontaneous, phasic, flow and spectral Doppler. competent and demonstrates normal Exam performed in department. augmentation. POP V is compressible, spontaneous, phasic, competent and demonstrates normal augmentation. T/P Trunk is compressible. PTV is compressible. LT PerV is compressible. VL/Venous Duplex US, Unilateral Interpretation Summary Deep veins of the left lower extremity are patent and compressible segmentally. There is no evidence of left lower extremity deep vein thrombosis. Valvular competence appears intac t within the proximal deep venous system on the left . The left great saphenous vein appears patent a nd compressible segmentally. The right common femoral vein is patent and compressible . Ordering Physician: Phi Garcia Chi Referring Physician: Phi Garcia Chi Performed By: Giselle Coker RVT and Student
== END | disposition home or self-care (01) ==
LOC: CVS 10:33
PROVIDERS: PCP Family Medicine Geriatric Medicine; Referring Provider Family Medicine Geriatric Medicine; Visit Provider Family Medicine Geriatric Medicine
DX: M79.89 Other specified soft tissue disorders (principal)
CPT/HCPCS: 93971

== ENCOUNTER → 2024-10-17 | Outpatient (CLI) | payer MEDICARE, SELFPAY ==
--- NOTE | 2024-10-17 14:36 | RAD_ITS ---
EXAM: XR LEFT HAND COMPLETE, 3 OR MORE VIEWS CLINICAL INDICATION: PAIN L MIDDLE FI TECHNIQUE: Frontal, lateral and oblique views of the left hand. COMPARISON: No relevant prior studies available. FINDINGS: BONES/JOINTS: Moderate osteoarthrosis of the triscaphe joint. Moderate to severe osteoarthrosis at the triscaphe joint. No sclerotic or destructive changes observed. No acute or healing fracture or malalignment. SOFT TISSUES: 2 mm metallic density foreign body projects adjacent to the distal phalanx of the fourth digit within the deep soft tissues. Diffuse soft tissue swelling about the hand and third digit in particular. No soft tissue gas. RAD/Hand Min 3 Views IMPRESSION: 1. Soft tissue swelling without any significant soft tissue gas. 2. No acute or healing fracture or malalignment. 3. 2 mm metallic density foreign body projects adjacent to the distal phalanx of the fourth digit within the deep soft tissues. Electronically Signed: Ruel Dunn MD at 14:27 EST ,
[2024-10-17 15:58] LABS: Absolute Lymphocyte Count 0.91 X10^3/uL (0.83-4.51); Absolute Neutrophil Count 9.2 X10^3/uL (2.0-7.7); Basophil# 0.07 X10^3/uL; Basophil% 0.6 % (0-1); Eosinophil# 0.33 X10^3/uL; Eosinophils% 2.9 % (0-5); Hematocrit 44.1 % (40-54); Hemoglobin 15.4 g/dL (13.0-16.5); Lymphocyte # 0.91 X10^3/ul (0.83-4.51); Lymphocyte % 8.1 % (19-41); Mean Corp Hgb Conc 34.9 g/dL (32-36); Mean Corpuscular Hgb 30.3 pg (27.0-32.0); Mean Corpuscular Volume 86.6 fL (80-94); Mean Platelet Vol. 9.2 fl (6.2-12.0); Monocyte% 5.3 % (0-10); NRBC Flagged by Analyzer 0 % (0-5); Neutrophil # 9.24 X10^3/uL (2.7-7.7); Neutrophil % 82.3 % (47-70); Platelet Count 269 K/mm3 (150-450); RBC Distribution Width CV 13.2 % (11.6-14.6); RBC Distribution Width SD 41.2 fl (35.1-43.9); Red Blood Count 5.09 M/mm3 (4.6-6.2); White Blood Count 11.2 K/mm3 (4.4-11.0)
[2024-10-17 16:10] LABS: Erythrocyte Sedimentation Rate 17 mm/hr (0-20)
[2024-10-17 16:31] LABS: Anion Gap 7 (5-15); BUN 17 mg/dL (7-18); BUN/Creat Ratio 19.4 RATIO (10-20); Calcium,Total 9.3 mg/dL (8.5-10.1); Chloride 106 mmol/L (98-107); Creatinine, Serum 0.88 mg/dL (0.70-1.30); EST Glomerular Filtration Rate 92 mL/min (>60); Est Glom Filt Rate - Afr Amer 112 mL/min (>60); Glucose 122 mg/dL (74-106); Potassium 3.5 mmol/L (3.5-5.1); Sodium Level 135 mmol/L (136-145)
[2024-10-17 17:35] LABS: M R Staph aureus DNA By PCR POSITIVE (Negative); Probe Check PASS; Specimen Processing Control PASS; Staph aureus DNA By PCR POSITIVE (Negative)
[2024-10-19 04:07] LABS: CRP, High Sensitivity 19.84 mg/L (0.00-3.00)
== END | disposition home or self-care (01) ==
LOC: RAD 14:35
PROVIDERS: PCP Family Medicine Geriatric Medicine; Referring Provider Family Medicine Geriatric Medicine; Visit Provider Family Medicine Geriatric Medicine
DX: M79.645 Pain in left finger(s) (principal); G81.91 Hemiplegia, unspecified affecting right dominant side; I10 Essential (primary) hypertension; L03.114 Cellulitis of left upper limb; A49.02 Methicillin resistant Staphylococcus aureus infection, unspecified site; S61.203A Unspecified open wound of left middle finger without damage to nail, initial encounter
CPT/HCPCS: 36415; 73130; 80048; 85025; 85652; 86141; 87070; 87077; 87205; 87640

== ENCOUNTER 2024-10-18 13:36 | Inpatient (IN) | payer MEDICARE, SELFPAY ==
[2024-10-18] VITALS (11 sets, daily range): BP systolic 130–159; BP diastolic 63–97; PULSE 76–112; RESP 15–18; TEMP 36.9–37.4; O2SAT 93–100; BMI 31.4; BMI 32.3
--- NOTE | 2024-10-18 13:54 | EDS_ITS ---
HPI <MEÑO Joshua - Last Filed: 10/18/24 15:44> History of Present Illness Chief Complaint: Cellulitis Narrative Narrative: 69-year-old male with PMH of HTN, HLD, CVA presents with left middle finger infection. He states four days ago (October 14) he noticed a kwong on his left middle finger and popped it. The next day he developed redness which has spread up to the MCP area. He saw Dr. Garcia in the office yesterday and was prescribed Bactrim, linezolid, and doxycycline. He took the first doses yesterday at 3 PM and 11 PM and a dose this morning but the redness has not improved so Dr. Garcia recommended he go to the ED. The wound culture came back positive for MRSA. He states he had a hand x-ray but does not know the results. He denies fever, chills, or pain in the extremity. He denies being diabetic or immunocompromised. PFSH <MEÑO Joshua - Last Filed: 10/18/24 15:44> [facility] Medical History (Updated 10/18/24 @ 15:44 by MEÑO Joshua) MRSA (methicillin resistant staph aureus) culture positive Prostate disease Back pain History of hiatal hernia Shortness of breath on exertion History of pain when walking History of stress test Wears glasses High cholesterol Hypertension Stroke/cerebrovascular accident Gastric reflux Non-smoker History of echocardiogram Cardiology follow-up encounter History of CVA (cerebrovascular accident) (08/07/19) Vascular dementia Essential hypertension Hyperlipidemia History of stroke Home Medications ?Medication ?Instructions ?Recorded ?Last Taken ?Type clopidogrel 75 mg tablet 75 mg PO DAILY HEART 09/25/19 09/03/24 History lisinopril 20 mg tablet 20 mg PO DAILY BP 09/26/19 09/10/24 History famotidine 40 mg tablet 40 mg PO DAILY PRN GERD 09/15/21 10/06/21 05:00 History rosuvastatin 10 mg tablet 10 mg PO QHS CHOLESTEROL 09/15/21 09/10/24 History gabapentin 300 mg capsule 300 mg PO TID PAIN 08/23/24 09/10/24 History finasteride 5 mg tablet 5 mg PO 1200 BLADDER 08/28/24 09/10/24 History Allergy/AdvReac Type Severity Reaction Status Date / Time No Known Allergies Allergy Verified 10/18/24 13:37 Family History Brother Heart disease atrial fib Mother Heart disease atrial fib Other Hypertension Surgical History History of colonoscopy H/O transurethral resection of prostate Hx of appendectomy History of back surgery History of loop recorder (10/08/19) Social History (Updated 10/18/24 @ 14:43 by Kerline Feliz) household members: family housing: house current occupational status: employed Smoking Status: Never smoker alcohol intake: never substance use type: does not use caffeine: Yes Type: coffee Number of servings: 1 ROS <MEÑO Joshua - Last Filed: 10/18/24 15:44> ROS ED ROS Narrative Constitutional: Negative for fever, chills, malaise. GI: Negative for nausea, vomiting. Neuro: Negative for motor/sensory dysfunction. Skin: Positive for abscess. Musc: Negative for joint pain. EXAM <MEÑO Joshua - Last Filed: 10/18/24 15:44> Physical Exam Narrative Exam Narrative: CONST: Patient sitting in no acute distress. EYES: Normal inspection. NECK: Normal inspection. RESP: No respiratory distress, CTAB. CVS: Regular rate and rhythm, no murmur, no gallop. EXTREMITIES: Left middle finger edema and erythema of the dorsal proximal and middle phalanxes. There is an opening with yellow purulent drainage on the middle phalanx. No lymphangitic streaking, no involvement of the wrist or dorsal hand. Full ROM, nontender, no crepitus, 2+ radial pulse and brisk cap refill. NEURO: Alert and answering questions appropriately. PSYCH: Normal affect. Const Vital Signs: 10/18/24 13:36 10/18/24 14:00 10/18/24 15:00 Temperature 98.4 F 98.9 F 98.7 F Temperature Source Oral Oral Oral Pulse Rate 112 H 100 98 Respiratory Rate 18 16 18 Blood Pressure 159/97 H 145/87 H 145/87 H Blood Pressure Mean 117 106 106 Pulse Ox 95 98 98 Oxygen Delivery Method Room Air Room Air <J Carlos Marie MD - Last Filed: 10/18/24 15:46> Physical Exam Const Vital Signs: 10/18/24 13:36 10/18/24 14:00 10/18/24 15:00 Temperature 98.4 F 98.9 F 98.7 F Temperature Source Oral Oral Oral Pulse Rate 112 H 100 98 Respiratory Rate 18 16 18 Blood Pressure 159/97 H 145/87 H 145/87 H Blood Pressure Mean 117 106 106 Pulse Ox 95 98 98 Oxygen Delivery Method Room Air Room Air MDM <MEÑO Joshua - Last Filed: 10/18/24 15:44> [facility] Narrative Medical decision making narrative: Differential: Cellulitis, abscess, osteomyelitis Consults: plastic surgery, hospitalist 69-year-old male states he developed a white head on his left middle finger 4 days ago that he popped and since then has progressive redness and swelling. There is an opening on the dorsal middle phalanx consistent with abscess and cellulitis extending up the dorsal finger to the MCP joint. Neurovascularly intact. Lb Labs show normal white count of 6.9, ESR 17, CRP 25.2. He had a left hand x-ray done outpatient yesterday?I called the radiology department to have it read stat and there are no acute findings. It noted there is a metallic foreign body in the fourth finger but his symptoms are in the third finger. I consulted plastic surgery and Dr. Asher performed I&D at bedside. He recommended admission to medicine for IV antibiotics for cellulitis.After discussion with the hospitalist he was ordered IV vancomycin as well as morphine and Zofran for pain as a digital block is starting to wear off. ED attending interpretation of left hand x-ray done on 10/17/2024 shows no acute osseous abnormalities. There is a small metallic foreign body at the distal fourth finger but his affected digit is the third finger. Lab Data Attestation: I reviewed the patient's lab results. Labs: Laboratory Results - last 24 hr 10/18/24 14:06 WBC 6.9 RBC 4.86 Hgb 14.8 Hct 43.5 MCV 89.5 MCH 30.5 MCHC 34.0 RDW Std Deviation 42.6 RDW Coeff of Breonna 13.0 Plt Count 250 MPV 9.3 Immature Gran % (Auto) 0.900 Neut % (Auto) 79.3 H Lymph % (Auto) 7.5 L [place] % (Auto) 6.1 Eos % (Auto) 5.5 H Baso % (Auto) 0.7 Absolute Neuts (auto) 5.5 Absolute Lymphs (auto) 0.52 L Nucleated RBC % 0 ESR 17 Sodium 135 L Potassium 3.5 Chloride 106 Carbon Dioxide 20.0 L Anion Gap 9 BUN 12 Creatinine 0.83 Estim Creat Clear Calc 87.02 Est GFR (MDRD) Af Amer 119 Est GFR (MDRD) Non-Af 98 BUN/Creatinine Ratio 14.4 Glucose 105 Lactic Acid 1.4 Calcium 8.9 C-React Prot Ext Range 25.20 H <J Carlos Marie MD - Last Filed: 10/18/24 15:46> [facility] Lab Data Labs: Laboratory Results - last 24 hr 10/18/24 14:06 WBC 6.9 RBC 4.86 Hgb 14.8 Hct 43.5 MCV 89.5 MCH 30.5 MCHC 34.0 RDW Std Deviation 42.6 RDW Coeff of Breonna 13.0 Plt Count 250 MPV 9.3 Immature Gran % (Auto) 0.900 Neut % (Auto) 79.3 H Lymph % (Auto) 7.5 L [place] % (Auto) 6.1 Eos % (Auto) 5.5 H Baso % (Auto) 0.7 Absolute Neuts (auto) 5.5 Absolute Lymphs (auto) 0.52 L Nucleated RBC % 0 ESR 17 Sodium 135 L Potassium 3.5 Chloride 106 Carbon Dioxide 20.0 L Anion Gap 9 BUN 12 Creatinine 0.83 Estim Creat Clear Calc 87.02 Est GFR (MDRD) Af Amer 119 Est GFR (MDRD) Non-Af 98 BUN/Creatinine Ratio 14.4 Glucose 105 Lactic Acid 1.4 Calcium 8.9 C-React Prot Ext Range 25.20 H Management Discussion w/another healthcare provider: Hospitalist (Dr. Ankita Mckeon) and Local Operator (Dr. Asher, plastic surgery/hand surgery) Treatment and Re-Evaluation :: Dr. Maire: I have personally performed a face to face assessment of the patient and have reviewed the LUCRETIA Note. I performed a substantive portion of the visit including all aspects of the following. My treviño findings include: History is cellulitis of left middle finger, on antibiotics in the form of linezolid, Bactrim, and doxycycline. Wound cultures as an outpatient positive for MRSA and patient has history of MRSA. Exam is afebrile. Vital signs noted. Nontoxic-appearing. Positive purulent drainage from dorsum of left third digit with surrounding cellulitis. Range of motion mildly limited secondary to swelling. Good capillary refill. Medical Decision Making: Check labs. Consult hand surgery. I&D in ED. Admit for IV antibiotics. Other additions or changes: [None] Discharge Plan Triage Chief Complaint: Cellulitis ED Midlevel Provider: Jennifer Cortez ED Provider: J Carlos Marie Dx/Rx/DC Orders Clinical Impression: Cellulitis of left middle finger, Abscess of left middle finger Prescriptions: No Action lisinopril 20 mg tablet 20 mg PO DAILY clopidogrel 75 mg tablet 75 mg PO DAILY rosuvastatin 10 mg tablet 10 mg PO QHS famotidine 40 mg tablet 40 mg PO DAILY PRN (Reason: GERD) gabapentin 300 mg capsule 300 mg PO TID Rx Instructions: Patient takes BID unless he needs it TID finasteride 5 mg tablet 5 mg PO 1200 Primary Care Provider: Phi Garcia Chi Referrals: Phi Garcia Chi, MD [Primary Care Provider] - Print Language: Yoruba
[2024-10-18 14:27] LABS: Erythrocyte Sedimentation Rate 17 mm/hr (0-20)
[2024-10-18 14:29] LABS: Absolute Lymphocyte Count 0.52 X10^3/uL (0.83-4.51); Absolute Neutrophil Count 5.5 X10^3/uL (2.0-7.7); Basophil# 0.05 X10^3/uL; Basophil% 0.7 % (0-1); Eosinophil# 0.38 X10^3/uL; Eosinophils% 5.5 % (0-5); Hematocrit 43.5 % (40-54); Hemoglobin 14.8 g/dL (13.0-16.5); Lymphocyte # 0.52 X10^3/ul (0.83-4.51); Lymphocyte % 7.5 % (19-41); Mean Corpuscular Hgb 30.5 pg (27.0-32.0); Mean Corpuscular Volume 89.5 fL (80-94); Mean Platelet Vol. 9.3 fl (6.2-12.0); Monocyte# 0.42 X10^3/uL; Monocyte% 6.1 % (0-10); NRBC Flagged by Analyzer 0 % (0-5); Neutrophil # 5.47 X10^3/uL (2.7-7.7); Neutrophil % 79.3 % (47-70); POSITIVE DIFFERENTIAL YES; Platelet Count 250 K/mm3 (150-450); RBC Distribution Width SD 42.6 fl (35.1-43.9); Red Blood Count 4.86 M/mm3 (4.6-6.2); White Blood Count 6.9 K/mm3 (4.4-11.0)
[2024-10-18 14:38] LABS: Anion Gap 9 (5-15); BUN 12 mg/dL (7-18); BUN/Creat Ratio 14.4 RATIO (10-20); Calcium,Total 8.9 mg/dL (8.5-10.1); Chloride 106 mmol/L (98-107); Creatinine, Serum 0.83 mg/dL (0.70-1.30); EST Glomerular Filtration Rate 98 mL/min (>60); Est Glom Filt Rate - Afr Amer 119 mL/min (>60); Estimated Creatinine Clearance 87.02 ml/min; Glucose 105 mg/dL (74-106); Potassium 3.5 mmol/L (3.5-5.1); Sodium Level 135 mmol/L (136-145)
--- NOTE | 2024-10-18 14:46 | CON.PCM.SX_ITS ---
Assessment & Plan Assessment/Plan (1) Abscess of left middle finger: PLAN: Verbal and written consent obtained. Discussed risks (damage to surrounding structures and wounds), benefits, and alternatives to a procedure and he wanted to proceed. Timeout was performed Procedure performed: left long finger dorsal finger I&D at bedside in emergency department Patient was prepped and draped in sterile fashion. 5 cc of 1% lidocaine with epinephrine was injected. A hemostat was used to probe the opening of the wound/abscess cavity and then on top of the hemostat so as to protect underlying structures, a 15 blade scalpel was used to open the skin. The culture was taken and the wound was irrigated with copious amounts normal saline and he started a Dial soap soak. He then was packed with iodoform gauze. (2) Cellulitis of left middle finger: PLAN: Admission to medicine for cellulitis Plastic surgery will follow for wound care and to check for worsening of the hand infection Recommend elevation with elevated wedge Agree with broad-spectrum antibiotics Follow-up wound culture and get infectious disease consultation Continue 3 times per day Dial soap soaks with iodoform packing. HPI Consult Data Date of Consult: 10/18/24 HPI Narrative HPI Narrative: ESPERANZA DAVISON, is a 69 M who presents with left long finger cellulitis and abscess. Patient reports that on Tuesday he started having swelling and pain in the left long finger (4 days ago), and it has been getting worse. Failed outpatient antibiotics prescribed by his primary care physician. He reports no inciting trauma. X-ray negative. Vital signs in the emergency department are stable. White blood cell count 6 point Patient is not a smoker. No personal or family history of bleeding or clotting problem. [facility] Medical History MRSA (methicillin resistant staph aureus) culture positive Prostate disease Back pain History of hiatal hernia Shortness of breath on exertion History of pain when walking History of stress test Wears glasses High cholesterol Hypertension Stroke/cerebrovascular accident Gastric reflux Non-smoker History of echocardiogram Cardiology follow-up encounter History of CVA (cerebrovascular accident) (08/07/19) Vascular dementia Essential hypertension Hyperlipidemia History of stroke Home Medications ?Medication ?Instructions ?Recorded ?Last Taken ?Type clopidogrel 75 mg tablet 75 mg PO DAILY HEART 09/25/19 10/18/24 History lisinopril 20 mg tablet 20 mg PO DAILY BP 12/18/19 01/09/25 History famotidine 40 mg tablet 40 mg PO DAILY PRN GERD 09/15/21 10/06/21 05:00 History rosuvastatin 10 mg tablet 10 mg PO QHS CHOLESTEROL 09/15/21 10/17/24 History gabapentin 300 mg capsule 300 mg PO TID PAIN 08/23/24 09/10/24 History finasteride 5 mg tablet 5 mg PO 1200 BLADDER 08/28/24 10/18/24 History Allergy/AdvReac Type Severity Reaction Status Date / Time No Known Allergies Allergy Verified 10/18/24 13:37 Family History Brother Heart disease atrial fib Mother Heart disease atrial fib Father No problems noted. Other Hypertension Surgical History History of colonoscopy H/O transurethral resection of prostate Hx of appendectomy History of back surgery History of loop recorder (10/08/19) Social History household members: family housing: house current occupational status: employed Smoking Status: Never smoker alcohol intake: never substance use type: does not use caffeine: Yes Type: coffee Number of servings: 1 Physical Exam Narrative Left upper Extremity Inspection: Purulent drainage from abscess/fluid collection on the dorsum of his left long finger. No streaking erythema past the finger. Localized to the left long finger dorsum. Palpation: No tenderness to palpation on the volar aspect of the long finger. No pain with passive extension. No pain with axial loading of the PIP joint of the left long finger Motor: Able to bend and extend all MP, PIP, and DIP joints. Sensory: Intact to light touch on the radial and ulnar borders. Vascular: Finger tips are warm and well perfused with <2 second capillary refill. Lab / Micro Data 10/18/24 14:06 10/18/24 14:06 Labs: Laboratory Results - last 24 hr 10/18/24 14:06: WBC 6.9, RBC 4.86, Hgb 14.8, Hct 43.5, MCV 89.5, MCH 30.5, MCHC 34.0, RDW Std Deviation 42.6, RDW Coeff of Breonna 13.0, Plt Count 250, MPV 9.3, Immature Gran % (Auto) 0.900, Neut % (Auto) 79.3 H, Lymph % (Auto) 7.5 L, [place] % (Auto) 6.1, Eos % (Auto) 5.5 H, Baso % (Auto) 0.7, Absolute Neuts (auto) 5.5, A bsolute Lymphs (auto) 0.52 L, Nucleated RBC % 0, ESR 17, Sodium 135 L, Potassium 3.5, Chloride 106, Carbon Dioxide 20.0 L, Anion Gap 9, BUN 12, Creatinine 0.83, Estim Creat Clear Calc 87.02, Est GFR (MDRD) Af Amer 119, Est GFR (MDRD) Non-Af 98, BUN/Creatinine Ratio 14.4, Glucose 105, Calcium 8.9, C-React Prot Ext Range 25.20 H Charges/Coding Visit Charges Office Visits / Consults: 90944 OV L5 New 60min
[2024-10-18] MEDS: Lidocaine 1% (5 ml sdv) 5 ML Vial 2 ML INFILT (15:21)
[2024-10-18 15:38] LABS: Lactic Acid 1.4 mmol/L (0.4-1.9)
--- NOTE | 2024-10-18 15:38 | HP.PCM.HOS_ITS ---
HPI - General General Date of Service: 10/18/24 Chief Complaint: Left middle finger small abscess/cellulitis HPI Narrative The patient is a 69 y/o M w/ PMHx: HTN, HLD, Hx CVA with vascular dementia, GERD, who presents to the [facility] ED on 10/18/23 with history of approximately 4 days prior onset of a small wkong on the left middle finger which she popped following which the next day he developed redness around it which is significantly worsened and spread to the MCP area with PCP evaluation in the office a day prior prescribed at that time Bactrim, doxycycline and potentially also linezolid taking his first doses yesterday at 3 PM and 11 PM however despite this there was increased redness therefore he was referred to the ED for evaluation. His physician in the office reportedly did take a culture that returned MRSA positive. He denies any recent fevers or chills or significant pain to the extremity. Workup in the ED included T98.7, heart rate 98, BP 145/87, respiratory rate 18, 98% on room air, blood culture x 2 pending per ED, CBC with WBC 6.9, hemoglobin 14.8, platelet 250 with lymphopenia, ESR 17, CRP 25.20, BMP with sodium 135 otherwise not marked appearing, lactic acid pending per ED. In the ED patient ministered Unasyn 3 g IV x 1. Outpatient 10/17/2019 5 plain film of the hand with soft tissue swelling without any significant soft tissue gas, no acute or healing fracture or malalignment, 2 mm metallic density foreign body projects adjacent to the distal phalanx of the fourth digit within this deep soft tissues. ED discussed case with Dr. Asher. Left Middle Finger MRSA Cellulitis and Abscess (based on outpatient I+D Cx): Will admit to MS, maintain on IV [], will obtain Wound Cx, will obtain Wound MRSA PCR, plan repeat CBC in AM, continue affected extremity elevation above heart when seated and in bed, monitor erythema outline with VS checks, low threshold to obtain duplex US to assure no DVT concurrently. History CVA with vascular mention: Will continue patient's Plavix and Lasix hold necessity per plastic surgery discretion, hypertensive regimen with lisinopril, statin therapy. Hypertension: Continue home regimen including lisinopril, PRN hydralazine. Hyperlipidemia: We will continue patient on statin therapy. Chronic neuropathy: Will continue patient home gabapentin regimen. BPH with obstructive pathology: Status post TURP, we will continue patient home finasteride regimen. DVT prophylaxis: Lovenox. CODE status: Patient HCPOA is [] and living will is []. Discussed CODE status at length including difference between FULL code, DNR-CCA and DNR-CC status. Following discussions about the differences in these status, requested []. Advanced Care Planning Face to Face Time: [] minutes. [facility] Medical History (Updated 10/18/24 @ 15:44 by MEÑO Joshua) MRSA (methicillin resistant staph aureus) culture positive Prostate disease Back pain History of hiatal hernia Shortness of breath on exertion History of pain when walking History of stress test Wears glasses High cholesterol Hypertension Stroke/cerebrovascular accident Gastric reflux Non-smoker History of echocardiogram Cardiology follow-up encounter History of CVA (cerebrovascular accident) (08/07/19) Vascular dementia Essential hypertension Hyperlipidemia History of stroke Home Medications ?Medication ?Instructions ?Recorded ?Last Taken ?Type clopidogrel 75 mg tablet 75 mg PO DAILY HEART 09/25/19 09/03/24 History lisinopril 20 mg tablet 20 mg PO DAILY BP 09/26/19 09/10/24 History famotidine 40 mg tablet 40 mg PO DAILY PRN GERD 09/15/21 10/06/21 05:00 History rosuvastatin 10 mg tablet 10 mg PO QHS CHOLESTEROL 09/15/21 09/10/24 History gabapentin 300 mg capsule 300 mg PO TID PAIN 08/23/24 09/10/24 History finasteride 5 mg tablet 5 mg PO 1200 BLADDER 08/28/24 09/10/24 History Allergy/AdvReac Type Severity Reaction Status Date / Time No Known Allergies Allergy Verified 10/18/24 13:37 Family History Brother Heart disease atrial fib Mother Heart disease atrial fib Other Hypertension Surgical History History of colonoscopy H/O transurethral resection of prostate Hx of appendectomy History of back surgery History of loop recorder (10/08/19) Social History (Updated 10/18/24 @ 14:43 by Kerline Feliz) household members: family housing: house current occupational status: employed Smoking Status: Never smoker alcohol intake: never substance use type: does not use caffeine: Yes Type: coffee Number of servings: 1 Vital Signs Vital Signs Vital Signs: 10/18/24 13:36 10/18/24 14:00 10/18/24 15:00 Temperature 98.4 F 98.9 F 98.7 F Temperature Source Oral Oral Oral Pulse Rate 112 H 100 98 Respiratory Rate 18 16 18 Blood Pressure 159/97 H 145/87 H 145/87 H Blood Pressure Mean 117 106 106 Pulse Ox 95 98 98 Oxygen Delivery Method Room Air Room Air Weight Weight: 189 lb 4 oz Body Mass Index (BMI) 31.4 Results Lab / Micro Data 10/18/24 14:06 10/18/24 14:06 Labs: Laboratory Results - last 24 hr 10/18/24 14:06: WBC 6.9, RBC 4.86, Hgb 14.8, Hct 43.5, MCV 89.5, MCH 30.5, MCHC 34.0, RDW Std Deviation 42.6, RDW Coeff of Breonna 13.0, Plt Count 250, MPV 9.3, Immature Gran % (Auto) 0.900, Neut % (Auto) 79.3 H, Lymph % (Auto) 7.5 L, [place] % (Auto) 6.1, Eos % (Auto) 5.5 H, Baso % (Auto) 0.7, Absolute Neuts (auto) 5.5, A bsolute Lymphs (auto) 0.52 L, Nucleated RBC % 0, ESR 17, Sodium 135 L, Potassium 3.5, Chloride 106, Carbon Dioxide 20.0 L, Anion Gap 9, BUN 12, Creatinine 0.83, Estim Creat Clear Calc 87.02, Est GFR (MDRD) Af Amer 119, Est GFR (MDRD) Non-Af 98, BUN/Creatinine Ratio 14.4, Glucose 105, Lactic Acid 1.4, Calcium 8.9, C- React Prot Ext Range 25.20 H
--- NOTE | 2024-10-18 15:38 | PCM.HP.STD ---
HPI - General General Date of Admission: 10/18/24 Date of Service: 10/18/24 Chief Complaint: Left middle finger small abscess/cellulitis HPI Narrative The patient is a 69 y/o M w/ PMHx: HTN, HLD, Hx CVA with vascular dementia, GERD, who presents to the [facility] ED on 10/18/23 with history of approximately 4 days prior onset of a small kwong on the left middle finger which she popped following which the next day he developed redness around it which is significantly worsened and spread to the MCP area with PCP evaluation in the office a day prior prescribed at that time Bactrim, doxycycline and potentially also linezolid taking his first doses yesterday at 3 PM and 11 PM however despite this there was increased redness therefore he was referred to the ED for evaluation. He does report since starting the antibiotics he is had decreased appetite and stomach upset. His physician in the office did take a culture that returned MRSA positive. He denies any recent fevers or chills or significant pain to the extremity. He currently notes that his finger is throbbing/aching and rates his discomfort 4 out of 10. Workup in the ED included T98.7, heart rate 98, BP 145/87, respiratory rate 18, 98% on room air, blood culture x 2 pending per ED, CBC with WBC 6.9, hemoglobin 14.8, platelet 250 with lymphopenia, ESR 17, CRP 25.20, BMP with sodium 135 otherwise not marked appearing, lactic acid pending per ED. In the ED patient ministered Unasyn 3 g IV x 1. Outpatient 10/17/2019 5 plain film of the hand with soft tissue swelling without any significant soft tissue gas, no acute or healing fracture or malalignment, 2 mm metallic density foreign body projects adjacent to the distal phalanx of the fourth digit within this deep soft tissues. ED discussed case with Dr. Asher who performed I+D in the ED with packing following and repeat cultures obtained which will be sent per hospitalist (Wound and MRSA Wound). [facility] Medical History MRSA (methicillin resistant staph aureus) culture positive Prostate disease Back pain History of hiatal hernia Shortness of breath on exertion History of pain when walking History of stress test Wears glasses High cholesterol Hypertension Stroke/cerebrovascular accident Gastric reflux Non-smoker History of echocardiogram Cardiology follow-up encounter History of CVA (cerebrovascular accident) (08/07/19) Vascular dementia Essential hypertension Hyperlipidemia History of stroke Home Medications ?Medication ?Instructions ?Recorded ?Last Taken ?Type clopidogrel 75 mg tablet 75 mg PO DAILY HEART 09/25/19 10/18/24 History lisinopril 20 mg tablet 20 mg PO DAILY BP 09/26/19 10/18/24 History famotidine 40 mg tablet 40 mg PO DAILY PRN GERD 09/15/21 10/06/21 05:00 History rosuvastatin 10 mg tablet 10 mg PO QHS CHOLESTEROL 09/15/21 10/17/24 History gabapentin 300 mg capsule 300 mg PO TID PAIN 08/23/24 09/10/24 History finasteride 5 mg tablet 5 mg PO 1200 BLADDER 08/28/24 10/18/24 History Allergy/AdvReac Type Severity Reaction Status Date / Time No Known Allergies Allergy Verified 10/18/24 13:37 Family History Brother Heart disease atrial fib Mother Heart disease atrial fib Father No problems noted. Other Hypertension Surgical History History of colonoscopy H/O transurethral resection of prostate Hx of appendectomy History of back surgery History of loop recorder (10/08/19) Social History household members: family housing: house current occupational status: employed Smoking Status: Never smoker alcohol intake: never substance use type: does not use caffeine: Yes Type: coffee Number of servings: 1 ROS ROS Narrative Admission Review of Systems: CONSTITUTIONAL: No weight loss, fever, chills, weakness or fatigue. HEENT: Eyes: No visual loss, blurred vision, double vision or yellow sclerae. Ears, Nose, Throat: No hearing loss, sneezing, congestion, runny nose or sore throat. SKIN: No rash or itching, lesions, wounds except + left middle finger swelling, redness, discomfort. CARDIOVASCULAR: No chest pain, chest pressure or chest discomfort, palpitations, edema, orthopnea, syncopal events. RESPIRATORY: No shortness of breath, cough or sputum, wheezing, hemoptysis. GASTROINTESTINAL: + Recent decreased appetite, dyspepsia with antibiotic therapy. No marked nausea, vomiting or diarrhea, abdominal pain, melena, BRBPR. GENITOURINARY: No dysuria, frequency, urgency or retention. NEUROLOGICAL: + History of prior CVA with vascular dementia. No headache, dizziness, syncope, paralysis, ataxia, numbness or tingling in the extremities, focal weakness, change in bowel or bladder control, seizure. MUSCULOSKELETAL: + muscle, back pain, joint pain or stiffness. HEMATOLOGIC: No anemia, bleeding or bruising. LYMPHATICS: No enlarged nodes. No history of splenectomy. PSYCHIATRIC: No history of depression or anxiety. ENDOCRINOLOGIC: No reports of sweating, cold or heat intolerance. No polyuria or polydipsia. ALLERGIES: No history of asthma, hives, eczema or rhinitis. Vital Signs Vital Signs Vital Signs: 10/18/24 13:36 10/18/24 14:00 10/18/24 15:00 Temperature 98.4 F 98.9 F 98.7 F Temperature Source Oral Oral Oral Pulse Rate 112 H 100 98 Respiratory Rate 18 16 18 Blood Pressure 159/97 H 145/87 H 145/87 H Blood Pressure Mean 117 106 106 Pulse Ox 95 98 98 Oxygen Delivery Method Room Air Room Air Weight Weight: 189 lb 4 oz Body Mass Index (BMI) 31.4 Physical Exam Narrative Physical Examination: General: Awake, alert, oriented x 3 and cooperative, seated upright in the ED bed in no apparent distress, admits fingers aching, rating it 4 out of 10 but not severe he notes. Skin: Normal color, normal turgor, no icterus, no cyanosis except left middle finger edema, erythema at the dorsal and proximal as well as middle phalanxes with purulent discharge from the opening in the middle of the phalanx with circumferential erythema with no specific streaking noted with tenderness to palpation per ED, s/p I+D per Dr. Asher, now being packed. HEENT: AT/NC, EOMI, PERRLA, MMM, no carotid bruits or JVD noted. Lungs: CTA bilaterally, moderate effort, mild decrease BL bases, no rales, ronchi or wheezing. Heart: Regular rate and rhythm; no gallop, rub audible. Abdomen: Soft, obese, NTTP, ND, normal BS, no HSM. Extremities: No cyanosis, no clubbing, no significant peripheral distal edema, see skin for left middle finger exam. Neurological: Patient awake, alert, oriented as noted, cognitive function intact; pupils equally reactive to light and accommodation, cranial nerves gross normal, moving all 4 extremities although self-limited left upper extremity movement given infection and recent I&D, no focal deficits, strength mildly globally decreased. Psychiatric: Affect appears mildly uncomfortable otherwise normal, no acute evidence of depressive or anxiety feelings. Results Lab / Micro Data 10/18/24 14:06 10/18/24 14:06 Labs: Laboratory Results - last 24 hr 10/18/24 14:06: WBC 6.9, RBC 4.86, Hgb 14.8, Hct 43.5, MCV 89.5, MCH 30.5, MCHC 34.0, RDW Std Deviation 42.6, RDW Coeff of Breonna 13.0, Plt Count 250, MPV 9.3, Immature Gran % (Auto) 0.900, Neut % (Auto) 79.3 H, Lymph % (Auto) 7.5 L, [place] % (Auto) 6.1, Eos % (Auto) 5.5 H, Baso % (Auto) 0.7, Absolute Neuts (auto) 5.5, Absolute Lymphs (auto) 0.52 L, Nucleated RBC % 0, ESR 17, Sodium 135 L, Potassium 3.5, Chloride 106, Carbon Dioxide 20.0 L, Anion Gap 9, BUN 12, Creatinine 0.83, Estim Creat Clear Calc 87.02, Est GFR (MDRD) Af Amer 119, Est GFR (MDRD) Non-Af 98, BUN/Creatinine Ratio 14.4, Glucose 105, Lactic Acid 1.4, Calcium 8.9, C-React Prot Ext Range 25.20 H Assessment & Plan Assessment/Plan (1) Abscess of left middle finger: (2) Cellulitis of left middle finger: PLAN: Plan The patient is a 69 y/o M w/ PMHx: HTN, HLD, Hx CVA with vascular dementia, GERD, who presents to the [facility] ED on 10/18/23 with history of approximately 4 days prior onset of a small kwong on the left middle finger which she popped following which the next day he developed redness around it which is significantly worsened and spread to the MCP area with PCP evaluation in the office a day prior prescribed at that time Bactrim, doxycycline and potentially also linezolid taking his first doses yesterday at 3 PM and 11 PM however despite this there was increased redness therefore he was referred to the ED for evaluation. #1. Left Middle Finger MRSA Cellulitis and Abscess (based on outpatient I+D Cx), Failed outpatient abx therapies: Will admit to [facility], maintain on IV vancomycin given recent MRSA positive wound culture however repeat wound culture and MRSA obtained following I&D in the ED per plastic surgery thus may alter antibiotics as needed, will request infectious disease involvement, continue affected extremity elevation above heart when seated and in bed, monitor erythema outline with VS checks, low threshold to obtain duplex US to assure no DVT concurrently, wound RN consultation, as needed pain regimen, continue plastic surgery consultation initiated in the ED. #2. History CVA with vascular mention: Will continue Plavix, hypertensive regimen, statin therapy. #3. Hypertension: Continue home regimen including lisinopril, PRN hydralazine. #4. Hyperlipidemia: We will continue patient on statin therapy. #5. Chronic neuropathy: Will continue patient home gabapentin regimen. #6. BPH with obstructive pathology: Status post TURP, we will continue patient home finasteride regimen. #7. DVT prophylaxis: Lovenox. #8. CODE status: Full Code status. Charges/Coding Visit Charges Inpatient E&M: 46424 Init Hosp L3
[2024-10-18] MEDS: Ondansetron 4 MG/2 ML Vial IV ×2 (15:56→20:57)
[2024-10-18] MEDS: Morphine 4 MG/ML Syringe IV ×2 (15:57→18:07)
[2024-10-18] MEDS: Vancomycin HCl 1,250 MG in 0.9% Normal Saline (250mL Bag) 250 ML 167 MG IV (15:58)
--- NOTE | 2024-10-18 17:02 | ED.RN ---
Pt wearing t shirt and sweat pants, declines to put on hospital gown at this time.
[2024-10-18 18:13] LABS: M R Staph aureus DNA By PCR POSITIVE (Negative); Probe Check PASS; Staph aureus DNA By PCR POSITIVE (Negative)
[2024-10-18] MEDS: Famotidine 20 MG Tablet 40 MG PO (21:52)
[2024-10-18] MEDS: Vancomycin HCl 750 MG in 0.9% Normal Saline (250mL Bag) 250 ML 250 MG IV (22:03)
[2024-10-18] MEDS: 0.9% Normal Saline (1000mL) 1,000 ML 100 ML IV (22:03)
[2024-10-18] MEDS: 0.9% Saline Lock 10 ML Syringe IV (22:04)
[2024-10-18] MEDS: Atorvastatin Calcium 20 MG Tablet PO (22:07)
--- NOTE | 2024-10-18 22:39 | PCM.RX.CS ---
Consult Antibiotic Management Pharmacy has been consulted to manage selected antibiotic: Vancomycin Type of Intervention Type of Consult: New start Labs Labs: Sodium 135 mmol/L (136-145) L 10/18/24 14:06 Potassium 3.5 mmol/L (3.5-5.1) 10/18/24 14:06 Chloride 106 mmol/L (98-107) 10/18/24 14:06 Carbon Dioxide 20.0 mmol/L (21.0-32.0) L 10/18/24 14:06 Anion Gap 9 (5-15) 10/18/24 14:06 BUN 12 mg/dL (7-18) 10/18/24 14:06 Creatinine 0.83 mg/dL (0.70-1.30) 10/18/24 14:06 Est GFR (MDRD) Af Amer 119 mL/min (>60) 10/18/24 14:06 Est GFR (MDRD) Non-Af 98 mL/min (>60) 10/18/24 14:06 BUN/Creatinine Ratio 14.4 RATIO (10-20) 10/18/24 14:06 Glucose 105 mg/dL (74-106) 10/18/24 14:06 Dosing Weight Weight used for dosin.8 kg Estimated Creatinine Clearance Estimated Creatinine Clearance: 87 Goal Trough Goal Trough: 15-20 mcg/mL Pharmacy Plan for Drug Dosing Pharmacy Plan for Drug Dosing: Pharmacy Service will continue to monitor and adjust dosing as required. LOADING DOSE OF 2GM, 1250 GIVEN IN ER @ 1558, 750MG ON MS3 @ 2203. START 1500MG Q12H DRAW TROUGH PRIOR TO 4TH DOSE Follow-Up Labs Follow-Up Labs: Trough: Vancomycin Date/Time Labs Ordered Labs to be done on [date and time ordered]: 10/20 @ 4148
[2024-10-18] MEDS: Gabapentin 300 MG Capsule PO (22:45)
[2024-10-19 02:34] VITALS: BMI 32.4
[2024-10-19 03:00] VITALS: BP 104/70; PULSE 71; RESP 15; TEMP 37; O2SAT 96
[2024-10-19] MEDS: Vancomycin HCl 1,500 MG in 0.9% Normal Saline (500mL Bag) 500 ML 250 MG IV ×2 (06:25→17:34)
[2024-10-19] MEDS: Gabapentin 300 MG Capsule PO ×3 (06:25→21:17)
[2024-10-19 06:45] LABS: Absolute Lymphocyte Count 1.05 X10^3/uL (0.83-4.51); Absolute Neutrophil Count 2.7 X10^3/uL (2.0-7.7); Basophil# 0.04 X10^3/uL; Basophil% 0.8 % (0-1); Eosinophil# 0.55 X10^3/uL; Eosinophils% 11.5 % (0-5); Hematocrit 43.2 % (40-54); Hemoglobin 14.3 g/dL (13.0-16.5); Lymphocyte # 1.05 X10^3/ul (0.83-4.51); Lymphocyte % 21.9 % (19-41); Mean Corp Hgb Conc 33.1 g/dL (32-36); Mean Corpuscular Hgb 29.9 pg (27.0-32.0); Mean Corpuscular Volume 90.2 fL (80-94); Mean Platelet Vol. 8.7 fl (6.2-12.0); Monocyte# 0.45 X10^3/uL; Monocyte% 9.4 % (0-10); NRBC Flagged by Analyzer 0 % (0-5); Neutrophil # 2.66 X10^3/uL (2.7-7.7); Neutrophil % 55.6 % (47-70); Platelet Count 264 K/mm3 (150-450); RBC Distribution Width CV 13.1 % (11.6-14.6); RBC Distribution Width SD 43.5 fl (35.1-43.9); Red Blood Count 4.79 M/mm3 (4.6-6.2); White Blood Count 4.8 K/mm3 (4.4-11.0)
[2024-10-19 07:10] LABS: ALB/GLOB Ratio 0.9 RATIO (0.9-2.4); AST(SGOT) 12 U/L (15-37); Alanine Aminotransfer ALT/SGPT 20 U/L (16-61); Albumin, Serum 2.9 g/dL (3.2-5.0); Alkaline Phosphatase 87 U/L (45-117); Anion Gap 4 (5-15); BUN 10 mg/dL (7-18); Calcium,Total 8.7 mg/dL (8.5-10.1); Chloride 112 mmol/L (98-107); Creatinine, Serum 0.83 mg/dL (0.70-1.30); EST Glomerular Filtration Rate 98 mL/min (>60); Est Glom Filt Rate - Afr Amer 119 mL/min (>60); Estimated Creatinine Clearance 88.22 ml/min; Globulin 3.3 g/dL (2.2-4.2); Glucose 91 mg/dL (74-106); Potassium 4.3 mmol/L (3.5-5.1); Protein, Total 6.2 g/dL (6.4-8.2); Sodium Level 138 mmol/L (136-145)
[2024-10-19] MEDS: Enoxaparin 40 MG/0.4 ML Syringe SC (09:37)
[2024-10-19] MEDS: Lisinopril 20 MG Tablet PO (09:37)
[2024-10-19] MEDS: Clopidogrel Bisulfate 75 MG Tablet PO (09:37)
[2024-10-19 09:39] VITALS: BP 125/75; PULSE 83; RESP 18; TEMP 36.8; O2SAT 95
--- NOTE | 2024-10-19 10:32 | CASEMGMT ---
FANY DOMINGUEZ Assessment: Face to Face with pt for initial transition planning/care coordination assessment. FANY DOMINGUEZ introduced self and role at [facility], pt voices understanding and consents to assessment. Pt is A&O x4 and answers all questions appropriately at this time. Pt lying in bed with left arm propped up in no distress. Care providers, pharmacy, and demographics verified/updated. Admitting Dx: cellulitis, MRSA abscess Strata Score: 2 PCP:Jose Specialists:Genaro, ortho; Mg, uro; Friend, GI Preferred Pharmacy: [facility] Insurance: [employer] [facility] Prescription Benefit: yes LNOK: Berna Mercado dtr Living Arrangements: Pt lives with an adult dtr and son in a single story home with 2 steps to enter. Pt reports he is I in ADLs/IADLs and denies concerns at home. Transportation: Pt drives self and denies concerns with transportation. DME:cane, walker- does not use HHC/SNF: Denies hx of Pt states no concerns with going home at time of dc. Pt states should he need wound care, his son is a [employer] WORK[employer] and his dtr is a pharmacist and they both could assist. Pt is doing outpt PT at [facility] post back surgery and would like to continue this upon dc. Pt states no further concerns/needs. CM to follow. Advised pt to ask CM if any further questions/concerns/needs arise, voices understanding. Pt Goal: Home, resume outpt therapy Plan: Home, resume outpt therapy pending ID rec, follow for wound care Iesha SOARES CM
[2024-10-19] MEDS: Finasteride 5 MG Tablet PO (12:54)
--- NOTE | 2024-10-19 14:02 | PN.SURG_ITS ---
Subjective Subjective Doing well. Pain improved. Endorses good soaks/dressing changes. Objective Data Objective Data Vital Signs: Vital Signs Temp Pulse Resp BP Pulse Ox O2 Del Method 98.3 F 83 18 125/75 H 95 Room Air 10/19/24 09:39 10/19/24 09:39 10/19/24 09:39 10/19/24 09:39 10/19/24 09:39 10/19/24 09:39 Oxygen Delivery Method Room Air Weight: 194 lb 10.691 oz Body Mass Index (BMI) 32.4 Intake & Output: Intake and Output for Last 24 Hours 10/17/24 10/18/24 10/19/24 23:59 23:59 23:59 Intake Total 540 / 540 1730 / 1730 Balance 540 / 540 1730 / 1730 Lab / Micro Data 10/19/24 06:36 10/19/24 06:36 Labs: Laboratory Results - last 24 hr 10/18/24 14:06: WBC 6.9, RBC 4.86, Hgb 14.8, Hct 43.5, MCV 89.5, MCH 30.5, MCHC 34.0, RDW Std Deviation 42.6, RDW Coeff of Breonna 13.0, Plt Count 250, MPV 9.3, Immature Gran % (Auto) 0.900, Neut % (Auto) 79.3 H, Lymph % (Auto) 7.5 L, [place] % (Auto) 6.1, Eos % (Auto) 5.5 H, Baso % (Auto) 0.7, Absolute Neuts (auto) 5.5, A bsolute Lymphs (auto) 0.52 L, Nucleated RBC % 0, ESR 17, Sodium 135 L, Potassium 3.5, Chloride 106, Carbon Dioxide 20.0 L, Anion Gap 9, BUN 12, Creatinine 0.83, Estim Creat Clear Calc 87.02, Est GFR (MDRD) Af Amer 119, Est GFR (MDRD) Non-Af 98, BUN/Creatinine Ratio 14.4, Glucose 105, Lactic Acid 1.4, Calcium 8.9, C- React Prot Ext Range 25.20 H 10/18/24 15:30: S.aureus Protein A PCR POSITIVE H, MRSA (PCR) POSITIVE H 10/19/24 06:36: WBC 4.8, RBC 4.79, Hgb 14.3, Hct 43.2, MCV 90.2, MCH 29.9, MCHC 33.1, RDW Std Deviation 43.5, RDW Coeff of Breonna 13.1, Plt Count 264, MPV 8.7, Immature Gran % (Auto) 0.800, Neut % (Auto) 55.6, Lymph % (Auto) 21.9, [place] % (Auto) 9.4, Eos % (Auto) 11.5 H, Baso % (Auto) 0.8, Absolute Neuts (auto) 2.7, Absolute Lymphs (auto) 1.05, Nucleated RBC % 0, Sodium 138, Potassium 4.3, C hloride 112 H, Carbon Dioxide 21.0, Anion Gap 4 L, BUN 10, Creatinine 0.83, Estim Creat Clear Calc 88.22, Est GFR (MDRD) Af Amer 119, Est GFR (MDRD) Non-Af 98, BUN/Creatinine Ratio 12.0, Glucose 91, Calcium 8.7, Total Bilirubin 0.50, A ST 12 L, ALT 20, Alkaline Phosphatase 87, Total Protein 6.2 L, Albumin 2.9 L, Globulin 3.3, Albumin/Globulin Ratio 0.9 Physical Exam Narrative Left Upper Extremity Inspection: Open wound on the left long finger, no purulent drainage. No streaking erythema past the finger. Localized to the left long finger dorsum. Palpation: No tenderness to palpation on the volar aspect of the long finger. No pain with passive extension. No pain with axial loading of the PIP joint of the left long finger Motor: Able to bend and extend all MP, PIP, and DIP joints. Sensory: Intact to light touch on the radial and ulnar borders. Vascular: Finger tips are warm and well perfused with <2 second capillary refill Assessment & Plan Assessment/Plan (1) Abscess of left middle finger: (2) Cellulitis of left middle finger: PLAN: Plan Left long finger improving. No purulence. No surgical intervention at this time. Continue elevation, antibiotics, and packing with Dial soap soaks. Plastic surgery following. Charges/Coding Multi Select Codes Visit Charges Visit Charges: 42102 Subs Hosp L2
--- NOTE | 2024-10-19 14:16 | CON.PCM.ID_ITS ---
Assessment & Plan Assessment/Plan (1) Abscess of left middle finger: PLAN: Wound cx with MRSA. Prior h/o MRSA, was started on one day of linezolid, bactrim, and doxy po as an outpt. Cont vanc. Plan for home with po doxy if finger continues to improve and bcx remain neg. Will follow, thank you HPI Consult Data Date of Consult: 10/19/24 HPI Narrative Reason for Consultation: finger infection HPI Narrative: ESPERANZA DAVISON, is a 69 M with h/o stroke, vascular dementia, developed L middle finger progressive pain, redness, swelling. He is R handed, no known inciting event. Saw PCP, took two doses of linezolid, bactrim, and doxy but felt sick and came to ED. Bedside I&D done by Dr. Asher, now on vanc, feeling a little better. Full ROS performed and neg except as noted above. [facility] Medical History MRSA (methicillin resistant staph aureus) culture positive Prostate disease Back pain History of hiatal hernia Shortness of breath on exertion History of pain when walking History of stress test Wears glasses High cholesterol Hypertension Stroke/cerebrovascular accident Gastric reflux Non-smoker History of echocardiogram Cardiology follow-up encounter History of CVA (cerebrovascular accident) (08/07/19) Vascular dementia Essential hypertension Hyperlipidemia History of stroke Home Medications ?Medication ?Instructions ?Recorded ?Last Taken ?Type clopidogrel 75 mg tablet 75 mg PO DAILY HEART 09/25/19 10/18/24 History lisinopril 20 mg tablet 20 mg PO DAILY BP 09/26/19 10/18/24 History famotidine 40 mg tablet 40 mg PO DAILY PRN GERD 09/15/21 10/06/21 05:00 History rosuvastatin 10 mg tablet 10 mg PO QHS CHOLESTEROL 09/15/21 10/17/24 History gabapentin 300 mg capsule 300 mg PO TID PAIN 08/23/24 09/10/24 History finasteride 5 mg tablet 5 mg PO 1200 BLADDER 08/28/24 10/18/24 History Allergy/AdvReac Type Severity Reaction Status Date / Time No Known Allergies Allergy Verified 10/18/24 13:37 Family History Brother Heart disease atrial fib Mother Heart disease atrial fib Father No problems noted. Other Hypertension Surgical History History of colonoscopy H/O transurethral resection of prostate Hx of appendectomy History of back surgery History of loop recorder (10/08/19) Social History household members: family housing: house current occupational status: employed Smoking Status: Never smoker alcohol intake: never substance use type: does not use caffeine: Yes Type: coffee Number of servings: 1 Physical Exam Const alert, oriented x3 and no apparent distress General Appearance: cooperative HEENT normocephalic and head/scalp atraumatic Eyes PERRL and EOMs intact bilaterally Neck supple and No nodes Resp normal air movement and clear to auscultation bilaterally Cardio regular rate and regular rhythm GI soft to palpation, non-tender and non-distended Extremity General Extremity: Negative for edema Skin Skin Narrative: reviewed wound photo Neuro CN's II-XII intact bilaterally Lab / Micro Data Attestation: I reviewed the patient's lab results. 10/19/24 06:36 10/19/24 06:36 Labs: Laboratory Results - last 24 hr 10/18/24 14:06: WBC 6.9, RBC 4.86, Hgb 14.8, Hct 43.5, MCV 89.5, MCH 30.5, MCHC 34.0, RDW Std Deviation 42.6, RDW Coeff of Breonna 13.0, Plt Count 250, MPV 9.3, Immature Gran % (Auto) 0.900, Neut % (Auto) 79.3 H, Lymph % (Auto) 7.5 L, [place] % (Auto) 6.1, Eos % (Auto) 5.5 H, Baso % (Auto) 0.7, Absolute Neuts (auto) 5.5, A bsolute Lymphs (auto) 0.52 L, Nucleated RBC % 0, ESR 17, Sodium 135 L, Potassium 3.5, Chloride 106, Carbon Dioxide 20.0 L, Anion Gap 9, BUN 12, Creatinine 0.83, Estim Creat Clear Calc 87.02, Est GFR (MDRD) Af Amer 119, Est GFR (MDRD) Non-Af 98, BUN/Creatinine Ratio 14.4, Glucose 105, Lactic Acid 1.4, Calcium 8.9, C- React Prot Ext Range 25.20 H 10/18/24 15:30: S.aureus Protein A PCR POSITIVE H, MRSA (PCR) POSITIVE H 10/19/24 06:36: WBC 4.8, RBC 4.79, Hgb 14.3, Hct 43.2, MCV 90.2, MCH 29.9, MCHC 33.1, RDW Std Deviation 43.5, RDW Coeff of Breonna 13.1, Plt Count 264, MPV 8.7, Immature Gran % (Auto) 0.800, Neut % (Auto) 55.6, Lymph % (Auto) 21.9, [place] % (Auto) 9.4, Eos % (Auto) 11.5 H, Baso % (Auto) 0.8, Absolute Neuts (auto) 2.7, Absolute Lymphs (auto) 1.05, Nucleated RBC % 0, Sodium 138, Potassium 4.3, C hloride 112 H, Carbon Dioxide 21.0, Anion Gap 4 L, BUN 10, Creatinine 0.83, Estim Creat Clear Calc 88.22, Est GFR (MDRD) Af Amer 119, Est GFR (MDRD) Non-Af 98, BUN/Creatinine Ratio 12.0, Glucose 91, Calcium 8.7, Total Bilirubin 0.50, A ST 12 L, ALT 20, Alkaline Phosphatase 87, Total Protein 6.2 L, Albumin 2.9 L, Globulin 3.3, Albumin/Globulin Ratio 0.9
--- NOTE | 2024-10-19 15:57 | PN.HOSP_ITS ---
Reason for Visit Reason for Visit: Diagnoses Cutaneous abscess of left hand (10/18/24) Cellulitis of left finger (10/18/24) Subjective Subjective Patient still reports some swelling in his hand/arm with a little bit of pain and feels some tightness on his left lateral chest wall which started the same time as the other swelling but has no other new or acute complaints Objective Data Objective Data Vital Signs: Vital Signs Temp Pulse Resp BP Pulse Ox O2 Del Method 98.3 F 83 18 125/75 H 95 Room Air 10/19/24 09:39 10/19/24 09:39 10/19/24 09:39 10/19/24 09:39 10/19/24 09:39 10/19/24 09:39 Oxygen Delivery Method Room Air Weight: 88.3 kg Body Mass Index (BMI) 32.4 Intake & Output: Intake and Output for Last 24 Hours 10/17/24 10/18/24 10/19/24 23:59 23:59 23:59 Intake Total 540 / 540 1730 / 1730 Balance 540 / 540 1730 / 1730 Lab / Micro Data 10/19/24 06:36 10/19/24 06:36 Labs: Laboratory Results - last 24 hr 10/18/24 15:30: S.aureus Protein A PCR POSITIVE H, MRSA (PCR) POSITIVE H 10/19/24 06:36: WBC 4.8, RBC 4.79, Hgb 14.3, Hct 43.2, MCV 90.2, MCH 29.9, MCHC 33.1, RDW Std Deviation 43.5, RDW Coeff of Breonna 13.1, Plt Count 264, MPV 8.7, Immature Gran % (Auto) 0.800, Neut % (Auto) 55.6, Lymph % (Auto) 21.9, [place] % (Auto) 9.4, Eos % (Auto) 11.5 H, Baso % (Auto) 0.8, Absolute Neuts (auto) 2.7, Absolute Lymphs (auto) 1.05, Nucleated RBC % 0, Sodium 138, Potassium 4.3, C hloride 112 H, Carbon Dioxide 21.0, Anion Gap 4 L, BUN 10, Creatinine 0.83, Estim Creat Clear Calc 88.22, Est GFR (MDRD) Af Amer 119, Est GFR (MDRD) Non-Af 98, BUN/Creatinine Ratio 12.0, Glucose 91, Calcium 8.7, Total Bilirubin 0.50, A ST 12 L, ALT 20, Alkaline Phosphatase 87, Total Protein 6.2 L, Albumin 2.9 L, Globulin 3.3, Albumin/Globulin Ratio 0.9 Micro: Microbiology 10/18/24 15:30 Wound - Finger Wound Culture - Preliminary Staphylococcus aureus Physical Exam Narrative General: Alert, oriented, no apparent distress HEENT: Atraumatic, normocephalic Eyes: Anicteric, normal conjunctiva, extraocular movements grossly intact Neck: Supple Respiratory: Clear to auscultation bilaterally, normal respiratory effort Cardiovascular: Regular rate GI: Soft, nontender, nondistended Extremities: Left arm was little bit more swollen than right, presently elevated Musculoskeletal: Moving all extremities Neuro: No overt focal neurological deficits Skin: Patient with finger wrapped with no drainage appreciated Psych: Cooperative Assessment & Plan Assessment/Plan (1) Abscess of left middle finger: (2) Cellulitis of left middle finger: PLAN: Plan #Abscess and cellulitis of left middle finger due to MRSA -Status post I&D 10/18/2024 with plastic surgery -Failed outpatient antibiotics -Discussed with plastic surgery who is following -Continue wound care -Monitoring cultures -Infectious disease following -Continue IV vancomycin, if patient continues to improve and blood cultures remain negative will likely be able to be discharged home on oral doxycycline # History of CVA -Continue Plavix and statin #Hypertension -Continue lisinopril #Chronic BPH with obstruction -Continue home medications #DVT ppx: Lovenox subcu Lenora Monte MD Time spent in the patient's overall evaluation, decision-making process, review of diagnostic data, adjustment of management, discussion with other providers, nursing and ancillary staff involved in patient's care documentation, 35 Minutes Charges/Coding Visit Charges Inpatient E&M: 71888 Subs Hosp L2
[2024-10-19 20:00] VITALS: RESP 15
[2024-10-19 20:01] VITALS: BP 132/78; PULSE 80; RESP 15; TEMP 36.7; O2SAT 96
[2024-10-19] MEDS: Atorvastatin Calcium 20 MG Tablet PO (21:17)
[2024-10-20 02:00] VITALS: RESP 15
[2024-10-20 03:07] VITALS: BMI 32.4
[2024-10-20] MEDS: Vancomycin Trough/Random Due 1 LAB MC (03:30)
[2024-10-20 05:00] VITALS: BP 146/85; PULSE 71; RESP 15; TEMP 36.7; O2SAT 96
[2024-10-20 05:11] LABS: Absolute Neutrophil Count 2.5 X10^3/uL (2.0-7.7); Basophil# 0.03 X10^3/uL; Basophil% 0.6 % (0-1); Eosinophil# 0.46 X10^3/uL; Eosinophils% 9.8 % (0-5); Hematocrit 41.9 % (40-54); Hemoglobin 13.9 g/dL (13.0-16.5); Lymphocyte % 27.8 % (19-41); Mean Corp Hgb Conc 33.2 g/dL (32-36); Mean Corpuscular Hgb 30.4 pg (27.0-32.0); Mean Corpuscular Volume 91.7 fL (80-94); Mean Platelet Vol. 8.6 fl (6.2-12.0); Monocyte# 0.35 X10^3/uL; Monocyte% 7.5 % (0-10); NRBC Flagged by Analyzer 0 % (0-5); Neutrophil # 2.52 X10^3/uL (2.7-7.7); Neutrophil % 53.9 % (47-70); Platelet Count 244 K/mm3 (150-450); RBC Distribution Width CV 13.2 % (11.6-14.6); RBC Distribution Width SD 44.6 fl (35.1-43.9); Red Blood Count 4.57 M/mm3 (4.6-6.2); White Blood Count 4.7 K/mm3 (4.4-11.0)
[2024-10-20] MEDS: Gabapentin 300 MG Capsule PO ×3 (05:13→21:09)
[2024-10-20 05:25] LABS: Anion Gap 2 (5-15); BUN 13 mg/dL (7-18); BUN/Creat Ratio 19.1 RATIO (10-20); Calcium,Total 8.8 mg/dL (8.5-10.1); Chloride 112 mmol/L (98-107); Creatinine, Serum 0.68 mg/dL (0.70-1.30); EST Glomerular Filtration Rate 123 mL/min (>60); Est Glom Filt Rate - Afr Amer 149 mL/min (>60); Estimated Creatinine Clearance 91.53 ml/min; Glucose 127 mg/dL (74-106); Potassium 3.9 mmol/L (3.5-5.1); Sodium Level 138 mmol/L (136-145)
[2024-10-20 05:28] LABS: Vancomycin, Trough Level 14.9 ug/mL (5.0-15.0)
--- NOTE | 2024-10-20 05:43 | PCM.RX.CS ---
Consult Antibiotic Management Pharmacy has been consulted to manage selected antibiotic: Vancomycin Type of Intervention Type of Consult: Follow-up Labs Labs: Sodium 138 mmol/L (136-145) 10/20/24 05:05 Potassium 3.9 mmol/L (3.5-5.1) 10/20/24 05:05 Chloride 112 mmol/L (98-107) H 10/20/24 05:05 Carbon Dioxide 24.0 mmol/L (21.0-32.0) 10/20/24 05:05 Anion Gap 2 (5-15) L 10/20/24 05:05 BUN 13 mg/dL (7-18) 10/20/24 05:05 Creatinine 0.68 mg/dL (0.70-1.30) L 10/20/24 05:05 Est GFR (MDRD) Af Amer 149 mL/min (>60) 10/20/24 05:05 Est GFR (MDRD) Non-Af 123 mL/min (>60) 10/20/24 05:05 BUN/Creatinine Ratio 19.1 RATIO (10-20) 10/20/24 05:05 Glucose 127 mg/dL (74-106) H 10/20/24 05:05 Vancomycin Trough 14.9 ug/mL (5.0-15.0) 10/20/24 05:05 Microbiology Microbiology: Microbiology 10/18/24 15:30 Wound - Finger Wound Culture - Preliminary Staphylococcus aureus Goal Trough Goal Trough: 15-20 mcg/mL Pharmacy Plan for Drug Dosing Pharmacy Plan for Drug Dosing: Pharmacy Service will continue to monitor and adjust dosing as required. ROMARIO 14.9 @ 11.5 HOURS. NO CHANGES, FOLLOW UP TROUGH IN 2 DAYS Follow-Up Labs Follow-Up Labs: Trough: Vancomycin Date/Time Labs Ordered Labs to be done on [date and time ordered]: 10/22 @ 9822
[2024-10-20] MEDS: Vancomycin HCl 1,500 MG in 0.9% Normal Saline (500mL Bag) 500 ML 250 MG IV ×2 (06:23→18:14)
[2024-10-20 07:36] VITALS: O2SAT 95
--- NOTE | 2024-10-20 07:52 | PN.HOSP_ITS ---
Reason for Visit Reason for Visit: Diagnoses Cutaneous abscess of left hand (10/18/24) Cellulitis of left finger (10/18/24) Subjective Subjective Patient continues to improve, reports he has had some diarrhea for the past couple days and continues to have it. No abdominal pain or other acute complaints Objective Data Objective Data Vital Signs: Vital Signs Temp Pulse Resp BP Pulse Ox O2 Del Method 98.0 F 71 15 146/85 H 96 Room Air 10/20/24 05:00 10/20/24 05:00 10/20/24 05:00 10/20/24 05:00 10/20/24 05:00 10/20/24 05:00 Oxygen Delivery Method Room Air Weight: 88.3 kg Body Mass Index (BMI) 32.4 Intake & Output: Intake and Output for Last 24 Hours 10/18/24 10/19/24 10/20/24 23:59 23:59 23:59 Intake Total 540 / 540 2660 / 2660 Balance 540 / 540 2660 / 2660 Lab / Micro Data 10/20/24 05:05 10/20/24 05:05 Labs: Laboratory Results - last 24 hr 10/18/24 15:30: S.aureus Protein A PCR POSITIVE H, MRSA (PCR) POSITIVE H 10/20/24 05:05: WBC 4.7, RBC 4.57 L, Hgb 13.9, Hct 41.9, MCV 91.7, MCH 30.4, MCHC 33.2, RDW Std Deviation 44.6 H, RDW Coeff of Breonna 13.2, Plt Count 244, MPV 8.6, Immature Gran % (Auto) 0.400, Neut % (Auto) 53.9, Lymph % (Auto) 27.8, [place] % (Auto) 7.5, Eos % (Auto) 9.8 H, Baso % (Auto) 0.6, Absolute Neuts (auto) 2.5, Absolute Lymphs (auto) 1.30, Nucleated RBC % 0, Sodium 138, Potassium 3.9, C hloride 112 H, Carbon Dioxide 24.0, Anion Gap 2 L, BUN 13, Creatinine 0.68 L, Estim Creat Clear Calc 91.53, Est GFR (MDRD) Af Amer 149, Est GFR (MDRD) Non-Af 123, BUN/Creatinine Ratio 19.1, Glucose 127 H, Calcium 8.8, Vancomycin Trough 14.9 Micro: Microbiology 10/18/24 15:30 Wound - Finger Wound Culture - Preliminary Staphylococcus aureus Physical Exam Narrative General: Alert, oriented, no apparent distress HEENT: Atraumatic, normocephalic Eyes: Anicteric, normal conjunctiva, extraocular movements grossly intact Neck: Supple Respiratory: Clear to auscultation bilaterally, normal respiratory effort Cardiovascular: Regular rate GI: Soft, nontender, nondistended Extremities: Finger wrapped, arm swelling improving Musculoskeletal: Moving all extremities Neuro: No overt focal neurological deficits Skin: Patient with finger wrapped with no drainage appreciated Psych: Cooperative Assessment & Plan Assessment/Plan (1) Abscess of left middle finger: (2) Cellulitis of left middle finger: PLAN: Plan #Abscess and cellulitis of left middle finger due to MRSA -Status post I&D 10/18/2024 with plastic surgery -Failed outpatient antibiotics -Discussed with plastic surgery who is following -Continue wound care -Monitoring cultures -Infectious disease following -Continue IV vancomycin, if patient continues to improve and blood cultures remain negative will likely be able to be discharged home on oral doxycycline -10/20: Blood cultures still pending, if negative tomorrow may be able to be discharged on p.o. Doxy. Second finger wound culture also grew MRSA, continue vancomycin # Diarrhea -Patient reported diarrhea today -Stool studies ordered -No abdominal pain, nausea, vomiting -If stool studies negative can consider loperamide Chronic medical problems: # History of CVA -Continue Plavix and statin #Hypertension -Continue lisinopril #Chronic BPH with obstruction -Continue home medications #DVT ppx: Lovenox subcu Lenora Monte MD Time spent in the patient's overall evaluation, decision-making process, review of diagnostic data, adjustment of management, discussion with other providers, nursing and ancillary staff involved in patient's care documentation, 36 Minutes Charges/Coding Visit Charges Inpatient E&M: 93928 [facility] Hosp L2
[2024-10-20] MEDS: Lisinopril 20 MG Tablet PO (09:00)
[2024-10-20] MEDS: Enoxaparin 40 MG/0.4 ML Syringe SC (09:00)
[2024-10-20] MEDS: Clopidogrel Bisulfate 75 MG Tablet PO (09:00)
--- NOTE | 2024-10-20 10:31 | PN.SURG_ITS ---
Subjective Subjective Doing well. Pain controlled. Reports that swelling has decreased. Endorses good soaks. Objective Data Objective Data Vital Signs: Vital Signs Temp Pulse Resp BP Pulse Ox O2 Del Method 98.0 F 71 15 146/85 H 95 Room Air 10/20/24 05:00 10/20/24 05:00 10/20/24 05:00 10/20/24 05:00 10/20/24 07:36 10/20/24 08:00 Oxygen Delivery Method Room Air Weight: 194 lb 10.691 oz Body Mass Index (BMI) 32.4 Intake & Output: Intake and Output for Last 24 Hours 10/18/24 10/19/24 10/20/24 23:59 23:59 23:59 Intake Total 540 / 540 2660 / 2660 530 / 530 Balance 540 / 540 2660 / 2660 530 / 530 Lab / Micro Data 10/20/24 05:05 10/20/24 05:05 Labs: Laboratory Results - last 24 hr 10/18/24 15:30: S.aureus Protein A PCR POSITIVE H, MRSA (PCR) POSITIVE H 10/20/24 05:05: WBC 4.7, RBC 4.57 L, Hgb 13.9, Hct 41.9, MCV 91.7, MCH 30.4, MCHC 33.2, RDW Std Deviation 44.6 H, RDW Coeff of Breonna 13.2, Plt Count 244, MPV 8.6, Immature Gran % (Auto) 0.400, Neut % (Auto) 53.9, Lymph % (Auto) 27.8, [place] % (Auto) 7.5, Eos % (Auto) 9.8 H, Baso % (Auto) 0.6, Absolute Neuts (auto) 2.5, Absolute Lymphs (auto) 1.30, Nucleated RBC % 0, Sodium 138, Potassium 3.9, C hloride 112 H, Carbon Dioxide 24.0, Anion Gap 2 L, BUN 13, Creatinine 0.68 L, Estim Creat Clear Calc 91.53, Est GFR (MDRD) Af Amer 149, Est GFR (MDRD) Non-Af 123, BUN/Creatinine Ratio 19.1, Glucose 127 H, Calcium 8.8, Vancomycin Trough 14.9 Micro: Microbiology 10/18/24 15:30 Wound - Finger Wound Culture - Final Meth. resistant Staph. aureus Physical Exam Narrative Left Upper Extremity Inspection: Open wound on the left long finger, no purulent drainage. No streaking erythema past the finger. Localized to the left long finger dorsum. Much less swelling than yesterday Palpation: No tenderness to palpation on the volar aspect of the long finger. No pain with passive extension. No pain with axial loading of the PIP joint of the left long finger Motor: Able to bend and extend all MP, PIP, and DIP joints. Sensory: Intact to light touch on the radial and ulnar borders. Vascular: Finger tips are warm and well perfused with <2 second capillary refill Assessment & Plan Assessment/Plan (1) Cellulitis of left middle finger: (2) MRSA (methicillin resistant staph aureus) culture positive: (3) Abscess of left middle finger: PLAN: Plan Abscess is gone. Now a wound. Cellulitis greatly improved. Continue antibiotics per ID for MRSA finger infection. F/u with plastics in clinic as outpatient on Tuesday afternoon. Discussed with patient extensively today plan for wound care (Dial soap soaks with warm water (after it is boiled and then cools down as patient has well water) and Kerlix wet to moist dressings) Patient understands need to keep wound moist and do wound care and above soaks three times per day to prevent tendon/wound desiccation. Charges/Coding Visit Charges Inpatient E&M: 57187 Subs Hosp L2 (Discussed wound care, did a soak, examined patient. Spent time teaching )
[2024-10-20 10:37] VITALS: BP 143/79; PULSE 72; RESP 16; TEMP 36.7; O2SAT 97
[2024-10-20] MEDS: Finasteride 5 MG Tablet PO (12:01)
[2024-10-20 15:02] VITALS: BP 138/82; PULSE 85; RESP 16; TEMP 36.7; O2SAT 98
[2024-10-20 20:30] VITALS: BP 138/70; PULSE 75; RESP 16; TEMP 36.7; O2SAT 98
[2024-10-20] MEDS: Atorvastatin Calcium 20 MG Tablet PO (21:09)
[2024-10-21 03:00] VITALS: BP 144/84; PULSE 76; RESP 16; TEMP 36.4; O2SAT 98
[2024-10-21 05:24] VITALS: BMI 33.0
[2024-10-21 05:52] LABS: Absolute Lymphocyte Count 1.74 X10^3/uL (0.83-4.51); Absolute Neutrophil Count 3.3 X10^3/uL (2.0-7.7); Basophil# 0.05 X10^3/uL; Basophil% 0.8 % (0-1); Eosinophil# 0.49 X10^3/uL; Eosinophils% 8.2 % (0-5); Hematocrit 41.3 % (40-54); Hemoglobin 13.8 g/dL (13.0-16.5); Lymphocyte # 1.74 X10^3/ul (0.83-4.51); Mean Corp Hgb Conc 33.4 g/dL (32-36); Mean Corpuscular Hgb 30.5 pg (27.0-32.0); Mean Corpuscular Volume 91.4 fL (80-94); Mean Platelet Vol. 8.7 fl (6.2-12.0); Monocyte# 0.35 X10^3/uL; Monocyte% 5.8 % (0-10); NRBC Flagged by Analyzer 0 % (0-5); Neutrophil # 3.33 X10^3/uL (2.7-7.7); Neutrophil % 55.5 % (47-70); Platelet Count 260 K/mm3 (150-450); RBC Distribution Width CV 13.1 % (11.6-14.6); RBC Distribution Width SD 43.9 fl (35.1-43.9); Red Blood Count 4.52 M/mm3 (4.6-6.2)
[2024-10-21] MEDS: Vancomycin HCl 1,500 MG in 0.9% Normal Saline (500mL Bag) 500 ML 250 MG IV (06:25)
[2024-10-21] MEDS: 0.9% Normal Saline (100mL Bag) 100 ML 15 ML IV (06:26)
[2024-10-21] MEDS: Gabapentin 300 MG Capsule PO (06:26)
[2024-10-21 06:29] LABS: Anion Gap 3 (5-15); BUN 11 mg/dL (7-18); Calcium,Total 8.9 mg/dL (8.5-10.1); Chloride 112 mmol/L (98-107); Creatinine, Serum 0.58 mg/dL (0.70-1.30); EST Glomerular Filtration Rate 149 mL/min (>60); Est Glom Filt Rate - Afr Amer 180 mL/min (>60); Estimated Creatinine Clearance 92.44 ml/min; Glucose 113 mg/dL (74-106); Potassium 3.8 mmol/L (3.5-5.1); Sodium Level 140 mmol/L (136-145)
[2024-10-21 07:20] VITALS: O2SAT 97
[2024-10-21 09:00] VITALS: BP 140/87; PULSE 80; RESP 16; TEMP 36.7; O2SAT 98
[2024-10-21] MEDS: Lisinopril 20 MG Tablet PO (09:43)
[2024-10-21] MEDS: Enoxaparin 40 MG/0.4 ML Syringe SC (09:43)
[2024-10-21] MEDS: Clopidogrel Bisulfate 75 MG Tablet PO (09:43)
--- NOTE | 2024-10-21 10:35 | DCINST_ITS ---
Discharge Instructions Diet Discharge Diet: - (DASH diet) DC O2, CPAP, BIPAP needs Home O2 Discharge instructions: No Dressing / Incision Discharge Activity: - (Increase activity as tolerated) Dressing / Incision Additional Dressing/Incision Instructions:: See additional discharge instructions for wound care instructions Follow Up Care Test Results: Test results from this visit will be discussed in further detail at your follow- up appointment, if applicable. Discharge Plan Admission Admit Date/Time: 10/18/24 15:46 Primary Reason for Your Visit: Left finger infection Attending Provider: Lenora Monte Primary Care Provider: Phi Garcia Chi Consulting Providers: Len Asher; Ankita Mckeon; Len Samano Instructions Additional Instructions / Restrictions: You will be discharged on additional 10 days of doxycycline PLASTIC SURGERY WOUND CARE INSTRUCTIONS : Three times per day, do Dial soap soaks with warm water (after it is boiled and then cools down as you have well water) and Kerlix wet to moist dressings for packing). Follow up with Wound/Plastic surgery in clinic on Tuesday Discharge Orders/Prescriptions Prescriptions: New doxycycline monohydrate 100 mg capsule 100 mg PO BID 10 Days Qty: 20 0RF Continued lisinopril 20 mg tablet 20 mg PO DAILY clopidogrel 75 mg tablet 75 mg PO DAILY rosuvastatin 10 mg tablet 10 mg PO QHS famotidine 40 mg tablet 40 mg PO DAILY PRN (Reason: GERD) gabapentin 300 mg capsule 300 mg PO TID Rx Instructions: Patient takes BID unless he needs it TID finasteride 5 mg tablet 5 mg PO 1200 Referrals / Follow Up: Len Asher MD [Med Staff - Active Staff] - (Follow-up in their clinic Tuesday) Phi Garcia Chi, MD [Primary Care Provider] - Within 1 Week Disposition Disposition (needs filled in before D/C Order can be placed): Home, Self Care
--- NOTE | 2024-10-21 10:58 | DS.PCM_ITS ---
Providers Date of Admission: 10/18/24 Date of Discharge: 10/21/24 Primary Care Physician: Dr. Phi Garcia MD Consultations 10/18/24 20:40 Consult: Infectious Disease Routine Consulting Provider: Len Samano Reason for Consult: MRSA abscess EMERGENT Consult: No Notified: Yes Date Notified: 10/18/24 Time Notified: 15:48 Method of Notification: Text Consult: Onc/Wound/sales service promoter Routine Comment: Reason for Consult:: L middle finger MRSA abscess/cellulitis Consult: Plastic Surgery Routine Consulting Provider: Len Asher Reason for Consult: L middle finger cellulitis, MRSA abscess EMERGENT Consult: No Notified: Yes Date Notified: 10/18/24 Time Notified: 15:49 Method of Notification: ED Physician Initiated Reason For Visit: CELLULITIS, MRSA ABSCESS Diagnosis Discharge Diagnosis (1) Abscess of left middle finger: Status: Acute Code(s): L02.512 - Cutaneous abscess of left hand (2) Cellulitis of left middle finger: Status: Acute Code(s): L03.012 - Cellulitis of left finger Plan #Abscess and cellulitis of left middle finger due to MRSA # History of CVA #Hypertension #Chronic BPH with obstruction Medications at Discharge Home Medications clopidogrel 75 mg tablet 75 mg PO DAILY HEART 09/25/19 lisinopril 20 mg tablet 20 mg PO DAILY BP 09/26/19 famotidine 40 mg tablet 40 mg PO DAILY PRN GERD 09/15/21 rosuvastatin 10 mg tablet 10 mg PO QHS CHOLESTEROL 09/15/21 gabapentin 300 mg capsule 300 mg PO TID PAIN 08/23/24 finasteride 5 mg tablet 5 mg PO 1200 BLADDER 08/28/24 doxycycline monohydrate 100 mg capsule 100 mg PO BID 10 days #20 caps 10/21/24 Hospital Course Summary of Care Provided Minutes Spent on Discharge: 25 Hospital Course: #Abscess and cellulitis of left middle finger due to MRSA # History of CVA #Hypertension #Chronic BPH with obstruction 69-year-old male problem list as above presented [facility] 10/18/2024 with left middle finger infection for 4 days. He failed outpatient antibiotics and culture from his PCPs office came back as MRSA. Plastic surgery contacted who did I&D in the ED and asked for medical admit for IV antibiotics. Patient admitted and plastic surgery followed for monitoring and wound care, ID was consulted and patient was maintained on IV antibiotics while waiting cultures. Wound culture did finalized with MRSA and blood cultures were negative. Patient improved and was okay for discharge from plastic surgery standpoint with follow-up on Tuesday and given blood cultures negative patient okay for DC on p.o. . Patient discharged home in stable condition with no new or acute complaints on day of discharge. Physical Exam Narrative General: Alert, oriented, no apparent distress HEENT: Atraumatic, normocephalic Eyes: Anicteric, normal conjunctiva, extraocular movements grossly intact Neck: Supple Respiratory: Normal respiratory effort Cardiovascular: No peripheral edema appreciated GI: Nondistended Extremities: Swelling improved Musculoskeletal: Moving all extremities Neuro: No overt focal neurological deficits Skin: Patient currently soaking finger Psych: Cooperative Weight / BMI Weight Weight: 90.1 kg Body Mass Index (BMI) 33.0 ABG / Lab / Microbiology Data 10/21/24 04:59 10/21/24 04:59 Laboratory: Laboratory Results - last 24 hr 10/21/24 04:59: WBC 6.0, RBC 4.52 L, Hgb 13.8, Hct 41.3, MCV 91.4, MCH 30.5, MCHC 33.4, RDW Std Deviation 43.9, RDW Coeff of Breonna 13.1, Plt Count 260, MPV 8.7, Immature Gran % (Auto) 0.700, Neut % (Auto) 55.5, Lymph % (Auto) 29.0, [place] % (Auto) 5.8, Eos % (Auto) 8.2 H, Baso % (Auto) 0.8, Absolute Neuts (auto) 3.3, Absolute Lymphs (auto) 1.74, Nucleated RBC % 0, Sodium 140, Potassium 3.8, C hloride 112 H, Carbon Dioxide 25.0, Anion Gap 3 L, BUN 11, Creatinine 0.58 L, Estim Creat Clear Calc 92.44, Est GFR (MDRD) Af Amer 180, Est GFR (MDRD) Non-Af 149, BUN/Creatinine Ratio 19.0, Glucose 113 H, Calcium 8.9 Microbiology: Microbiology 10/20/24 15:23 Stool Enteric Bacteriology - Final 10/20/24 15:23 Stool C. difficile GDH Antigen & Toxins - Final 10/20/24 15:23 Stool Clostridioides difficile (PCR) - Final 10/18/24 15:30 Wound - Finger Gram Stain - Final 10/18/24 15:30 Wound - Finger Wound Culture - Final Meth. resistant Staph. aureus 10/18/24 14:06 Blood Culture (Wb) #2 - Right Hand Blood Culture - Preliminary No growth in 48 hours. 10/18/24 14:06 Blood Culture (Wb) - Anticubital Left Blood Culture - Preliminary No growth in 48 hours. D/C Instructions Discharge Diet: - (DASH diet) Additional Dressing/Incision Instructions: See additional discharge instructions for wound care instructions DC O2, CPAP, BIPAP Needs Home O2 Discharge instructions: No Meaningful Use Info Meaningful Use Meaningful Use Diagnoses (Choose all that apply): None applicable Ischemic Stroke Statin Dosing Therapy Reference: STATIN DOSE THERAPY REFERENCE: * Patients > 75 years receive moderate or high dose statin therapy. * Patients 75 years or YOUNGER should receive HIGH intensity statin dose unless contraindicated. You will be required to document reason for non-treatment if statin daily dose does not meet guidelines. HIGH DOSE STATIN THERAPY DAILY Atorvastatin > than or = to 40 mg Rosuvastatin > than or = to 20 mg Amlodipine + Atorvastatin > than or = to 2.5/40 mg Ezetimibe + Simvastatin 10/80 mg Simvastatin 80mg Discharge Plan Admission Admit Date/Time: 10/18/24 15:46 Primary Reason for Your Visit: Left finger infection Attending Provider: Lenora Monte Primary Care Provider: Phi Garcia Chi Consulting Providers: Len Asher; Ankita Mckeon; Len Samano Instructions Additional Instructions / Restrictions: You will be discharged on additional 10 days of doxycycline PLASTIC SURGERY WOUND CARE INSTRUCTIONS : Three times per day, do Dial soap soaks with warm water (after it is boiled and then cools down as you have well water) and Kerlix wet to moist dressings for packing). Follow up with Wound/Plastic surgery in clinic on Tuesday afternoon Discharge Orders/Prescriptions Prescriptions: New doxycycline monohydrate 100 mg capsule 100 mg PO BID 10 Days Qty: 20 0RF Continued lisinopril 20 mg tablet 20 mg PO DAILY clopidogrel 75 mg tablet 75 mg PO DAILY rosuvastatin 10 mg tablet 10 mg PO QHS famotidine 40 mg tablet 40 mg PO DAILY PRN (Reason: GERD) gabapentin 300 mg capsule 300 mg PO TID Rx Instructions: Patient takes BID unless he needs it TID finasteride 5 mg tablet 5 mg PO 1200 Referrals / Follow Up: Len Asher MD [Med Staff - Active Staff] - (Follow-up in their clinic Tuesday) Phi Garcia Chi, MD [Primary Care Provider] - Within 1 Week Disposition Disposition (needs filled in before D/C Order can be placed): Home, Self Care Charges/Coding Visit Charges Inpatient E&M: 58248 Disch Hosp
== END 2024-10-21 12:15 | disposition home or self-care (01) | DRG 603 ==
LOC: ED 15:43 → MS3 20:23
PROVIDERS: Physician Assistant; Admitting Provider Family Medicine; Emergency Provider Emergency Medicine; PCP Family Medicine Geriatric Medicine; Visit Provider Internal Medicine
DX: L03.012 Cellulitis of left finger (principal); N13.8 Other obstructive and reflux uropathy; L02.414 Cutaneous abscess of left upper limb; I10 Essential (primary) hypertension; E78.00 Pure hypercholesterolemia, unspecified; K21.9 Gastro-esophageal reflux disease without esophagitis; M79.645 Pain in left finger(s); S61.203A Unspecified open wound of left middle finger without damage to nail, initial encounter; G62.9 Polyneuropathy, unspecified; R19.7 Diarrhea, unspecified; B95.62 Methicillin resistant Staphylococcus aureus infection as the cause of diseases classified elsewhere; Z86.73 Personal history of transient ischemic attack (TIA), and cerebral infarction without residual deficits; Z79.02 Long term (current) use of antithrombotics/antiplatelets; N40.1 Benign prostatic hyperplasia with lower urinary tract symptoms; Z98.1 Arthrodesis status; Z79.899 Other long term (current) drug therapy; Z90.49 Acquired absence of other specified parts of digestive tract
CPT/HCPCS: 36415; 73130; 80048; 80053; 80202; 83605; 85025; 85652; 86140; 86141; 87040; 87070; 87077; 87186; 87205; 87493; 87506; 87640; 97110; 99284; A4216; J0295; J2405

== ENCOUNTER → 2024-11-07 | Outpatient (CLI) | payer MEDICARE, SELFPAY ==
--- NOTE | 2024-11-07 10:45 | RAD_ITS ---
PROCEDURE: CHEST PA AND LATERAL; THORACIC SPINE 2 VIEWS REASON FOR EXAM: Chest pain. Back pain. TECHNIQUE: Three-view AP and lateral thoracic spine and PA and lateral chest (combined dictation). COMPARISON: None. RAD/Chest PA and Lateral IMPRESSION: On the thoracic spine examination, limited imaging of the cervical spine shows multilevel moderate degenerative disc disease. Semc-oh-etnisnyc degenerative changes are seen throughout the thoracic spine, m ost prominent in the midthoracic spine. No fracture or subluxation is seen. At least mild asymmetric right acromioclavicular joint degenerative changes are seen. No other significant osseous changes are noted. Lungs appear clear of acute disease. No pleural effusion or pneumothorax is noted. The cardiomediastinal silhouette is within the normal range. Reading Location: [id number]
--- NOTE | 2024-11-07 10:45 | RAD_ITS ---
PROCEDURE: CHEST PA AND LATERAL; THORACIC SPINE 2 VIEWS REASON FOR EXAM: Chest pain. Back pain. TECHNIQUE: Three-view AP and lateral thoracic spine and PA and lateral chest (combined dictation). COMPARISON: None. RAD/Thoracic Spine 2 Views IMPRESSION: On the thoracic spine examination, limited imaging of the cervical spine shows multilevel moderate degenerative disc disease. Wztd-tb-lmfoxdga degenerative changes are seen throughout the thoracic spine, m ost prominent in the midthoracic spine. No fracture or subluxation is seen. At least mild asymmetric right acromioclavicular joint degenerative changes are seen. No other significant osseous changes are noted. Lungs appear clear of acute disease. No pleural effusion or pneumothorax is noted. The cardiomediastinal silhouette is within the normal range. Reading Location: [id number]
== END | disposition home or self-care (01) ==
LOC: RAD 10:40
PROVIDERS: PCP Family Medicine Geriatric Medicine; Referring Provider Family Medicine Geriatric Medicine; Visit Provider Family Medicine Geriatric Medicine
DX: M54.14 Radiculopathy, thoracic region (principal); R07.9 Chest pain, unspecified
CPT/HCPCS: 71046; 72070

== ENCOUNTER 2024-11-08 10:00 | Outpatient (RCR) | payer MEDICARE, SELFPAY ==
--- NOTE | 2024-10-12 16:04 | HP.PTEVAL_ITS ---
Patient's Visit Information Visit Information Visit Information: ESPERANZA DAVISON is a 68 year old M referred to Physical Therapy by MEÑO Hardy with a diagnosis of ARTHRODESIS. Date of Evaluation: 10/12/24 Physical Therapist: Carlos Morillo, PT, Cert MDT, OCS Visit Plan Frequency: 2x /Week Duration: 4 Weeks Plan: S/P LUMBAR FUSION Sep 11 PT INTERVENTIONS LE FLEXABILITY , DLS ,POSTURAL EX'S ,BLE STRENGTHENING AND PATIENT EDUCATION POSTURE Subjective Subjective: This 68 y.o male presents to physical therapy with s/p lumbar fusion done by Dr Lam on Sep 11 at [facility] . Patient had s/p L3-5 posterior instrumented spinal fusion and Sep 13 due to pain. Patient d/c for 2 weeks then a cane.Prior to surgery had MRI showed Pronounced central canal stenosis at L3-L4 disc space level with an AP canal diameter of 4 mm secondary to posterior ligamenta flava hypertrophy,prominent dorsal epidural lipomatosis, developmentally short pedicles and mild asymmetric degenerative anterolisthesis of L3 on L4.Moderate central canal stenosis at L2-L3 disc space level with an AP canal diameter 7 mm and mild degenerative anterolisthesis of L2 on L3.Moderate central canal stenosis at L4-L5 disc space level with an AP canal diameter 7 mm and mild posterior bulging annulus. Patient has medication 7 days oxycodone. Patient major compliant is weakness in legs. Patient describes no pain. Patient denies paresthesia/tingling except right great toe. Coughing/sneezing-. Bowel/bladder-. Patient sleeping okay.Patient had PT prior to surgery and pain management .Aggr avating factors walking and sitting is better. Patient no BLT and lifting .Patient condition affects QOL and function/gait/housework. Patient goals to get back to normal and decrease pain. SOCIAL: VOCATION: retired Objective Objective: POSTURE: mild forward posture GAIT: reciprocal pattern slow ramsey slight decrease step length NEURO: denies paresthesia/tingling except right great toe INCISION: posterior and lateral approach LUMBAR ROM: flexion mod loss ,side glides mod glides ,extension mod /severe FLEXABILITY: mod loss tight MMT: quads/hams ,( peak force) hip flexion 20.3 left ,right 21.1 ankle 4/5 Special Tests L/S Slump test left side: Negative L/S Slump test right side: Negative L/S Left Straight Leg Raise: Negative L/S Right Straight Leg Raise: Negative Balance/Special Test Scores Oswestry Low Back Score: 28 Goals Goal 1:: Patient to be I with HEP for back Goal Time Frame: 4-6 Weeks Goal 2:: Patient to demonstrate 50% improvement with less pain and increase strength for function. Goal Time Frame: 4-6 Weeks Goal 3:: Patient to improve lumbar ROM for function of recovery to put on shoes Goal Time Frame: 4-6 Weeks Goal 4:: Patient to improve peak force strength hips by 5-10# to improve gait and function Goal Time Frame: 4-6 Weeks Goal 5:: Patient to improve back oswestry score by 5 points to improve QOL and function Goal Time Frame: 4-6 Weeks Goal 6:: Patient to ambulate with reciprocal pattern Goal Time Frame: 4-6 Weeks Rehabilitation Potential Physical Therapy Diagnosis: This patient underwent s/p lumbar fusion Sep 11 with ROM ,weakness legs impairs gait and ADLS and thus benefit from skilled PT Rehabilitation Potential: Good Anticipated Interventions Patient/Client Instruction: Educate patient on: Condition and Plan of Care For the Purpose of:: To decrease pain, To increase ROM, To improve muscle performance and motor function, To improve ability to perform ADL's, To increase tolerance to activity/condition/position, To improve ability of physical actions for home/community/work/leisure, To improve health of tissue, To decrease soft tissue restriction and To increase flexibility/ROM Therapeutic Exercise to Include: Strength training, Postural training, Flexibilty training and Dynamic Lumbar Stabilization For the Purpose of:: To decrease pain, To increase ROM, To increase oxygenation perfusion, To increase tolerance to activity/condition/position, To improve ability of physical actions for home/community/work/leisure, To improve health of tissue, To decrease soft tissue restriction and To increase flexibility/ROM Cryotherapy (ice pack, ice massage): Yes Thermo therapy (hot pack): Yes For the Purpose of:: To decrease pain Text: Thank you for the opportunity to evaluate your patient. For Medicare and Medicare HMO plans, please review the plan of care and approve it. It will need to be FAXED BACK to us at [phone] for Medicare purposes. For Medicare only, by signing this I certify the plan of care. Please let me know if there are questions or concerns regarding this plan of care. Physician Signature: ___Date:
--- NOTE | 2024-11-08 10:28 | HP.PTDCSUM ---
Discharge Summary D/C summary: It has been my pleasure to treat ESPERANZA DAVISON referred by MEÑO Hardy, with the diagnosis of ARTHRODESIS for a total of 8 visit(s). Discharge Date: 11/08/24 Please see the following information for a summary of their discharge status. Subjective Subjective: Doing well .. ready for d/c Plan adrian see DR Lam in 2weeks Patient getting stronger Overall Improvement % Improvement: 75 Objective Objective/Function: POSTURE: mild forward posture GAIT: reciprocal pattern NEURO: denies paresthesia/tingling great toe INCISION: posterior and lateral approach LUMBAR ROM: flexion WFL ,side glides mod glides ,extension mod loss FLEXABILITY: mod loss tight MMT: quads/hams ,( peak force) hip flexion 44.6 left ,right 41,8 ankle 4/5 Goals Goal 1:: Patient to be I with HEP for back Goal Progress: Goal Met Goal 2:: Patient to demonstrate 50% improvement with less pain and increase strength for function. Goal Progress: Goal Met Goal 3:: Patient to improve lumbar ROM for function of recovery to put on shoes Goal Progress: Goal Met Goal 4:: Patient to improve peak force strength hips by 5-10# to improve gait and function Goal Progress: Goal Met Goal 5:: Patient to improve back oswestry score by 5 points to improve QOL and function Goal 6:: Patient to ambulate with reciprocal pattern Goal Progress: Goal Met Plan Plan: D/C D/C Information Discharge Comments: HEP d/c sentence: If there are questions or concerns regarding this patient's physical therapy, please feel free to call me at [phone]. Thank you for the referral of this patient. Sincerely, Carlos Morillo, PT, Cert MDT, OCS Balance/Gait/Functional tests Balance/Special Test Scores Oswestry Low Back Score: 3 Improvement % Improvement: 75
== END 2024-11-08 12:33 | disposition home or self-care (01) ==
LOC: PT 10:00
PROVIDERS: PCP Family Medicine Geriatric Medicine; Referring Provider Student in an Organized Health Care Education/Training Program; Visit Provider Student in an Organized Health Care Education/Training Program
DX: Z98.1 Arthrodesis status (principal)
CPT/HCPCS: 97110; 97162; 97530

== ENCOUNTER → 2024-11-12 | Outpatient (CLI) | payer MEDICARE, SELFPAY ==
--- NOTE | 2024-11-12 08:53 | BI_ITS ---
PROCEDURE: DIAG MAMM W/CAD, BILAT REASON FOR EXAM: Left breast pain. Sister with breast cancer. TECHNIQUE: Bilateral diagnostic digital breast tomosynthesis with 2D and 3D images. Computer aided detection. COMPARISON: Baseline study. FINDINGS: The breasts are almost entirely fatty. With the patient's history of left breast pain, targeted sonographic correlation recommended. BI/DIAG MAMM W/CAD, BILAT IMPRESSION: BI-RADS 0: INCOMPLETE - NEED ADDITIONAL IMAGING EVALUATION. Follow-up code: Ultrasound Recommended Reading Location: [place] [id number]
--- NOTE | 2024-11-12 08:53 | US_ITS ---
PROCEDURE: BREAST COMPLETE UNILATERAL REASON FOR EXAM: Left breast pain. Recent hospitalization for MRSA. Pain in the left axilla. COMPARISON: None. TECHNIQUE: Targeted bilateral breast ultrasound. FINDINGS: LEFT: Ultrasound targeted to the axillary region of the left breast as well as the whole left breast. The breast tissue appears sonographically normal. No cyst, solid mass, or suspicious shadowing. Multiple small benign-appearing lymph nodes are seen in the left axilla the largest measures 1.5 cm x 1.8 cm x 1.3 cm. US/Breast Complete Unilateral IMPRESSION: Benign-appearing left axillary lymph nodes. BI-RADS 2: BENIGN. RECOMMEND ANNUAL MAMMOGRAPHIC SCREENING. Reading Location: [facility]
== END | disposition home or self-care (01) ==
LOC: OPBI 08:50
PROVIDERS: PCP Family Medicine Geriatric Medicine; Referring Provider Family Medicine Geriatric Medicine; Visit Provider Family Medicine Geriatric Medicine
DX: N64.4 Mastodynia (principal)
CPT/HCPCS: 76641; 77062; 77066; G0279

== ENCOUNTER → 2024-11-15 | Outpatient (CLI) | payer MEDICARE, SELFPAY ==
[2024-11-15 09:43] LABS: Absolute Lymphocyte Count 2.13 X10^3/uL (0.83-4.51); Absolute Neutrophil Count 5.9 X10^3/uL (2.0-7.7); Basophil# 0.08 X10^3/uL; Basophil% 0.9 % (0-1); Eosinophil# 0.16 X10^3/uL; Eosinophils% 1.7 % (0-5); Hematocrit 49.1 % (40-54); Hemoglobin 16.5 g/dL (13.0-16.5); Lymphocyte # 2.13 X10^3/ul (0.83-4.51); Lymphocyte % 23.3 % (19-41); Mean Corp Hgb Conc 33.6 g/dL (32-36); Mean Corpuscular Hgb 30.4 pg (27.0-32.0); Mean Corpuscular Volume 90.6 fL (80-94); Monocyte# 0.66 X10^3/uL; Monocyte% 7.2 % (0-10); NRBC Flagged by Analyzer 0 % (0-5); Neutrophil # 5.93 X10^3/uL (2.7-7.7); Neutrophil % 64.8 % (47-70); Platelet Count 323 K/mm3 (150-450); RBC Distribution Width CV 13.1 % (11.6-14.6); RBC Distribution Width SD 43.7 fl (35.1-43.9); Red Blood Count 5.42 M/mm3 (4.6-6.2); White Blood Count 9.2 K/mm3 (4.4-11.0)
[2024-11-15 11:24] LABS: AST(SGOT) 14 U/L (15-37); Alanine Aminotransfer ALT/SGPT 28 U/L (16-61); Albumin, Serum 3.4 g/dL (3.2-5.0); Alkaline Phosphatase 62 U/L (45-117); Anion Gap 10 (5-15); BUN 19 mg/dL (7-18); BUN/Creat Ratio 21.9 RATIO (10-20); Chloride 106 mmol/L (98-107); Cholesterol 113 mg/dL (200); Creatinine, Serum 0.87 mg/dL (0.70-1.30); EST Glomerular Filtration Rate 93 mL/min (>60); Est Glom Filt Rate - Afr Amer 113 mL/min (>60); Globulin 3.3 g/dL (2.2-4.2); Glucose 110 mg/dL (74-106); High Density Lipoprotein 61 mg/dL; PSA,Total - Annual Screen 1.58 ng/mL (0.00-4.00); Potassium 3.9 mmol/L (3.5-5.1); Protein, Total 6.7 g/dL (6.4-8.2); Sodium Level 137 mmol/L (136-145); Triglycerides 98 mg/dL; Very Low Density Lipoprotein 20 mg/dL (5-40)
[2024-11-15 21:23] LABS: Vitamin D,25 Hydroxy 22.2 ng/mL
== END | disposition home or self-care (01) ==
LOC: POLAB3 09:14
PROVIDERS: PCP Family Medicine Geriatric Medicine; Visit Provider Family Medicine Geriatric Medicine
DX: E78.5 Hyperlipidemia, unspecified (principal); I10 Essential (primary) hypertension; Z12.5 Encounter for screening for malignant neoplasm of prostate; E55.9 Vitamin D deficiency, unspecified
CPT/HCPCS: 36415; 80053; 80061; 82306; 84153; 84443; 85025; G0103

== ENCOUNTER → 2024-11-22 | Outpatient (CLI) | payer MEDICARE, SELFPAY ==
--- NOTE | 2024-11-22 14:56 | RAD_ITS ---
EXAM: XR Chest, 2 Views CLINICAL INDICATION: TECHNIQUE: Frontal and lateral views of the chest. COMPARISON: No relevant prior studies available. FINDINGS: LUNGS AND PLEURAL SPACES: Unremarkable. No consolidation. No pneumothorax. HEART: Unremarkable. No cardiomegaly. MEDIASTINUM: Unremarkable. Normal mediastinal contour. BONES/JOINTS: Unremarkable. No acute fracture. RAD/Chest PA and Lateral IMPRESSION: No acute cardiopulmonary process. Reading Location[facility]
== END | disposition home or self-care (01) ==
LOC: RAD 14:56
PROVIDERS: PCP Family Medicine Geriatric Medicine; Referring Provider Family Medicine Geriatric Medicine; Visit Provider Family Medicine Geriatric Medicine
DX: R06.2 Wheezing (principal); R05.9 Cough, unspecified
CPT/HCPCS: 71046

== ENCOUNTER → 2024-11-23 | Outpatient (CLI) | payer MEDICARE, SELFPAY | END | disposition home or self-care (01) | LOC: PSN 08:37 | PROVIDERS: PCP Family Medicine Geriatric Medicine; Referring Provider Family Medicine Geriatric Medicine; Visit Provider Family Medicine Geriatric Medicine | DX: R68.83 Chills (without fever) (principal) | CPT/HCPCS: 87631 ==

== ENCOUNTER → 2024-12-27 | Outpatient (CLI) | payer MEDICARE, SELFPAY ==
--- NOTE | 2024-12-27 14:15 | STRESSREP_ITS ---
Stress Test Report Exercise myocardial perfusion stress test. 69-year-old man with a history of chest pain Stress protocol: Resting EKG demonstrates normal sinus rhythm with a rate of 74 bpm resting blood pressure is 128/82 mmHg. The patient exercised according to the regular Lam protocol for a total duration of 3 minutes and 15 seconds attaining a maximum heart rate of 134 bpm which was 87% of maximum predicted heart rate; the maximum workload was 5.2 metabolic equivalents. At rest there were no ST or T wave changes noted to suggest ischemia and at peak exercise upsloping ST changes only were noted which did not meet the criteria for ischemia. No clinical angina was noted the test was terminated due to the target heart rate being achieved/fatigu e. The peak blood pressure was 150/86 mmHg. Rate-pressure product was 18,000. Myocardial perfusion protocol. 11.8 mCi of technetium 99m sestamibi was injected at rest. The patient exercised according to regular Lam protocol for total duration of 3 minutes and 15 seconds and at peak exercise 33.9 mCi of technetium 99m sestamibi was injected stress images were obtained stress and rest images were reconstructed in comparing the short axis vertical long and horizontal long axis. Gated images were also obtained. Perfusion SPECT analysis: Review of the stress images demonstrate normal uptake of tracer noted in all areas of the myocardium. The resting images similarly demonstrate normal uptake of tracer noted in all areas of the myocardium. No areas of reversibility are noted to suggest ischemia no previous infarct was noted. Gated SPECT analysis: The gated ejection fraction is 60%. Conclusion: Normal exercise myocardial perfusion stress test at a low to normal workload Preserved ejection fraction.
== END | disposition home or self-care (01) ==
PROVIDERS: PCP Family Medicine Geriatric Medicine; Referring Provider Family Medicine Geriatric Medicine; Visit Provider Family Medicine Geriatric Medicine
DX: R07.9 Chest pain, unspecified (principal)
CPT/HCPCS: 78452; 93017; A9500; A4216

== ENCOUNTER → 2025-05-15 | Outpatient (CLI) | payer MEDICARE, SELFPAY ==
[2025-05-15 09:24] LABS: Hematocrit 49.9 % (40-54); Hemoglobin 16.6 g/dL (13.0-16.5); Immature Granulocytes Count 0.050 X10^3/uL (0.0-0.0); Mean Corp Hgb Conc 33.3 g/dL (32-36); Mean Corpuscular Volume 90.6 fL (80-94); Mean Platelet Vol. 8.8 fl (6.2-12.0); NRBC Flagged by Analyzer 0 % (0-5); Platelet Count 327 K/mm3 (150-450); RBC Distribution Width CV 13.0 % (11.6-14.6); RBC Distribution Width SD 43.1 fl (35.1-43.9); Red Blood Count 5.51 M/mm3 (4.6-6.2); White Blood Count 7.8 K/mm3 (4.4-11.0)
[2025-05-15 10:04] LABS: Cholesterol 123 mg/dL (<=200); Low Density Lipoprotein Calc. 51 mg/dL; Triglycerides 133 mg/dL; Very Low Density Lipoprotein 27 mg/dL (5-40); Vitamin D,25 Hydroxy 34.7 ng/mL (30-100); cholesterol:hdl ratio screen 2.69
[2025-05-15 10:05] LABS: AST(SGOT) 24 U/L (<=37); Alanine Aminotransfer ALT/SGPT 25 U/L (<=46); Albumin, Serum 4.2 g/dL (3.4-4.8); Alkaline Phosphatase 68 U/L (40-129); Anion Gap 13 (5-15); BUN 16 mg/dL (4-19); BUN/Creat Ratio 19.0 RATIO (10-20); Calcium,Total 9.5 mg/dL (7.6-11.0); Carbon Dioxide 21.4 mmol/L (21.0-32.0); Chloride 102 mmol/L (98-108); Globulin 2.6 g/dL (2.2-4.2); Glucose 106 mg/dL (70-99); Potassium 4.3 mmol/L (3.3-5.1)
[2025-05-15 17:04] LABS: Xtra Tube Kwok EXTRA TUBE
== END | disposition home or self-care (01) ==
LOC: POLAB3 09:03
PROVIDERS: PCP Family Medicine Geriatric Medicine; Visit Provider Family Medicine Geriatric Medicine
DX: E78.5 Hyperlipidemia, unspecified (principal); I10 Essential (primary) hypertension; E55.9 Vitamin D deficiency, unspecified
CPT/HCPCS: 36415; 80053; 80061; 82306; 84443; 85025